=== PATIENT | male | born 1940 | race African-American/Black ===

== ENCOUNTER 2016-05-27 13:10 | Inpatient (IN) ==
--- NOTE | 2016-05-27 13:47 | EKG Report ---
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
[2016-05-27 14:12] LABS: Basophils % 0.2 % (0.0-0.8); Eosinophils # 0.1 10*3/uL (0.0-0.87); Eosinophils % 2.1 % (0.00-10.9); Hematocrit 32.8 VOL% (42.0-52.0); Hemoglobin 9.8 GM/DL (14.0-18.0); Immature Granulocytes % 0.2 %; Immature Granulocytes Absolute 0.01 #; Lymphocytes % 34.1 % (21.2-54.2); Mean Corpuscular HGB Conc 29.9 GM/DL (32-36); Mean Corpuscular Hemoglobin 26 PG (27-34); Mean Corpuscular Volume 87.7 FL (87-102); Monocytes # 0.4 10*3/uL (0.11-0.8); Monocytes % 7.5 % (1.7-12.7); Neutrophils # 3.3 10*3/uL (1.4-7.4); Neutrophils % 55.9 % (38.7-73.9); Platelet Count 250 T/CUMM (130-400); Red Blood Count 3.74 MC/CUMM (3.8-5.5); Red Cell Distribution Width 15.9 % (9.3-17.3); White Blood Count 5.8 T/CUMM (4-12)
--- NOTE | 2016-05-27 14:24 | XRay Report ---
Exam: XR chest 1V portable Date: 05/27/2016 1:44 PM Indication: Shortness of breath Comparison: 02/11/2016 Technical: AP Findings: Low volume effusions are present with underlying atelectatic change and minimal shunt vascularity with cardiac enlargement. External cardiac leads and oxygen tubing are present. No pneumothorax present. Mediastinum is intact. No pneumothorax Impression: 1. Bibasilar atelectatic changes infiltrates and effusions 2. Mild cardiac decompensation suspected, CHF PROCEDURE INTERPRETED AT [facility] DEPARTMENT OF RADIOLOGY Final Report Signed by: Dr. Kevin Rick
[2016-05-27] MEDS ORDERED: FUROSEMIDE 40 MG/4 ML VIAL ONE (14:28)
[2016-05-27 14:33] LABS: Alanine Aminotransferase 13 U/L (16-61); Albumin 2.3 G/DL (3.4-5.0); Alkaline Phosphatase 111 U/L (45-117); Aspartate Amino Transferase 16 U/L (0-37); Bilirubin,Total < 0.39 MG/DL (0.2-1.0); Blood Urea Nitrogen 20 MG/DL (7-18); Glucose 159 MG/DL (74-106); Magnesium 1.9 MG/DL (1.8-2.4); Osmolality,Calculated 299.3 MOS/KG (273-304); Potassium 3.9 MMOL/L (3.5-5.1); Sodium 148 MMOL/L (136-145); Total Protein 7.4 G/DL (6.4-8.3)
[2016-05-27] MEDS ORDERED: FUROSEMIDE 40 MG/4 ML VIAL IV STA (14:48)
--- NOTE | 2016-05-27 15:05 | Emergency Department Note ---
Socorro Castellanos Brittany, am scribing for, and in the presence of, Sanjeev Remy MD 13:47. Jonel Castellanos Phillip K, MD, personally performed the services described in this documentation, ascribed by Mara Quintanilla in my presence, and it is both accurate and complete [id number] . Arrival - Arrival Chief Complaint: Shortness of Breath Stated Complaint: FLUID ON CHEST ED Nursing Triage Note: SOB FOR PAST TWO DAYS, SEEN BY DR MIRANDA IN CLINIC THIS AM, PER PT CHEST XRAY HAD FLUID BUILD UP. DENIES CHEST PAIN Mode of Arrival: Ambulatory Limitations: No Limitations Source: Patient Time Seen by Provider: 05/27/16 13:28 - History of Present Illness HPI Narrative: This is a 76 y/o black male, who presents to the ED with c/o dyspnea which started yesterday. He states he was being seen at Dr. Miranda's clinic this morning. Per pt, his chest X-ray showed fluid build up. He denies any CP, fever , vomiting or diarrhea. He reports the SOB is worse with exertion. He states he wears O2 PRN. Pt has no other complaints/pain in the ED at this time. Pt has a PMHx of CAD, CHF, OK, migraines, IDDM, cardiovascular problems, pneumonia, GERD , musculoskeletal problems, and back/neck problems. Pt has had a cardiac cath, neurological surgery, appendectomy, hernia repair, and abd surgery. Pt has a family medical Hx of diabetes. Pt denies a social Hx. Onset (ago): day(s) (Started yesterday) Consistency: constant Severity: moderate Allergies/Adverse Reactions: Allergies Allergy/AdvReac Type Severity Reaction Status Date / Time Sulfa (Sulfonamide Allergy HIVES Verified 05/27/16 13:11 Antibiotics) Home Medications: Home Medications Medication Instructions Recorded Confirmed Type Clopidogrel Bisulfate [Clopidogrel] 75 mg PO DAILY 02/07/16 02/12/16 History Pantoprazole Tab [Protonix Tab] 40 mg PO DAILY 02/07/16 02/12/16 History Ranolazine [Ranexa] 500 mg PO DAILY 02/07/16 02/12/16 History Acetaminophen Tab [Tylenol Tab] 325 mg PO Q4H PRN #0 tablet 02/12/16 02/12/16 Rx Albuterol/Ipratropium Neb [Duoneb] 3 ml RESP TX RT Q4H nebulization 02/12/16 Rx solution Aspirin EC Tab 81 mg PO DAILY tablet 02/12/16 02/12/16 Rx Atorvastatin [Lipitor] 40 mg PO DAILY #0 02/12/16 02/12/16 Rx Carvedilol [Coreg] 12.5 mg PO BID tablet 02/12/16 05/27/16 Rx Dextrose 50% [D50] 25 gm IV PRN PRN #0 vial 02/12/16 02/12/16 Rx Furosemide Tab [Lasix Tab] 80 mg PO BID #0 02/12/16 05/27/16 Rx HYDROcodone/ACETAMIN 10-325 [[place] 1 tablet PO Q6H PRN #30 02/12/16 05/27/16 Rx 10-325] Losartan [Cozaar] 25 mg PO DAILY tablet 02/12/16 05/27/16 Rx Potassium Chloride Cap/Tab [K Dur] 20 meq PO DAILY tablet 02/12/16 05/27/16 Rx Skin Healing Oint (Aquaphor) 1 applic TOP PRN PRN #0 ointment 02/12/16 02/12/16 Rx [Aquaphor] Spironolactone [Aldactone] 25 mg PO BID tablet 02/12/16 02/12/16 Rx Review of System - Review of System 12 point system: reviewed and no additional remarkable complaints except as stated - Review of System Constitutional: Absent: fever Cardiovascular: Present: dyspnea on exertion. Absent: chest pain Gastrointestinal: Absent: vomiting, diarrhea Medical,Surgical,& Family Hx - Medical History Cardio: History of: CHF, CAD, Hypertension, OK, Cardiovascular Problems Psychological: No history of: Anxiety Disorders, Behavior Problems, Bipolar Disorder Neurology: History of: Migraine No history of: Brain Aneurysm, Cerebral Hemorrhage, Cerebrovascular Accident , Cerebral Palsy, Dementia Endocrine: History of: Diabetes Mellitus (IDDM) No history of: Thyroid Disorder, Endocrine Problems Respiratory: History of: Pneumonia, Respiratory Problems (wears o2 at night) No history of: Obstructive Sleep Apnea, Pulmonary Embolism Renal: No history of: Renal (Kidney) Cancer, Dialysis, Renal Failure, Renal Problems Genitourinary: No history of: Bladder Problem, Kidney Stones, Prostate Problems, Recurring Urinary Tract Infections, Genitourinary Cancer, Problems Gastrointestinal: History of: GERD, Hemorrhoids Musculoskeletal: History of: Amputation (Right toes), Back/Neck Problems, Musculoskeletal Problems (weak) Hematology: History of: Anemia No history of: Blood Transfusion Reaction - Surgical History Cardiac Surgeries: Sugical HX of: Cardiac Catheterization Thoracic Surgeries: Patient denies;: Kidney (Renal Surgery), Lithotripsy, Nephrectomy, Organ Transplant, Lobectomy Neurologic Surgeries: Surgical HX of: Neurologic Surgery Patient denies: Brain Aneurysm, Cerebral Hemorrhage HEENT Surgeries: Patient denies: Eye Surgery, Thyroid Surgery, Tonsilectomy & Adenoidectomy Abdominal Surgeries: Surgical HX of: Abdominal Surgery, Appendectomy, Hernia Repair Patient denies: Colonoscopy, Gastric Bypass Surgery, EGD Reproductive Surgeries: Patient denies;: Cystoscopy, Genitourinary Surgery, Prostate Surgery - Family History Family History: Reports;: Family Diabetes (mom) - Social History Smoking Status: Former smoker Exam Vital Signs: Vital Signs Temperature 97.2 F L 05/27/16 14:19 Pulse Rate 89 05/27/16 15:00 Respiratory Rate 15 05/27/16 15:00 Blood Pressure 143/72 05/27/16 15:00 O2 Sat by Pulse Oximetry 96 05/27/16 15:00 - General General appearance: alert, in no apparent distress - Head Head exam: Present: atraumatic, normocephalic, normal inspection - Eye Eye exam: Present: other (Pale conjunctiva) - ENT ENT exam: Present: normal exam, normal oropharynx, mucous membranes moist - Neck Neck exam: Present: normal inspection, full ROM, trachea midline. Absent: tenderness, meningismus - Chest Chest inspection: Present: normal inspection, symmetric chest wall rise. Absent : tenderness, rash, abscess - Respiratory Respiratory exam: Present: normal lung sounds bilaterally. Absent: rales, respiratory distress, rhonchi, stridor, wheezes - Cardiovascular Cardiovascular exam: Present: regular rate, normal rhythm, normal heart sounds. Absent: tachycardia, murmur, rubs, gallop, clicks - Abdominal Exam Abdominal exam: Present: soft, normal bowel sounds. Absent: distention, tenderness, guarding, rebound, rigidity - Extremities Exam Extremities exam: Present: normal capillary refill, other (2+ Pitting Edema). Absent: tenderness, pedal edema, joint swelling, calf tenderness - Back Exam Back exam: Present: normal inspection, full ROM. Absent: tenderness, muscle spasm, rashes - Neurological Exam Neurological exam: Present: alert, oriented X3, CN II-XII intact. Absent: motor sensory deficit - Psychiatric Psychiatric exam: Present: normal affect, normal mood. Absent: agitated, anxious - Skin Skin exam: Present: warm, dry, intact, normal color. Absent: rash, cyanosis, diaphoresis, erythema, pallor, mottled Results - Labs CBC & BMP: 05/27/16 13:53 05/27/16 13:53 Lab Results: I have reviewed the patients labs Labs: Laboratory Tests 05/27/16 13:53 RBC 3.74 L Hgb 9.8 L Hct 32.8 L MCH 26 L MCHC 29.9 L Laboratory Tests 05/27/16 05/27/16 05/27/16 13:53 13:53 13:53 RBC 3.74 L Hgb 9.8 L Hct 32.8 L MCH 26 L MCHC 29.9 L Sodium 148 H Anion Gap 15.9 H BUN 20 H Glucose 159 H Calcium 8.0 L ALT 13 L B-Natriuretic Peptide 1677 H Albumin 2.3 L Globulin 5.1 H Albumin/Globulin Ratio 0.4 L - EKG EKG results: interpreted by ERMD, sinus rhythm (unchanged from previous EKGs.) - Diagnostic Findings Procedure: Chest x-ray: report reviewed by me (atelectasis, mild congestive heart failure.) Disposition Clinical Impression: Congestive heart failure, Pleural effusion, left Case discussed with: patient Disposition: Still a Patient Condition: Guarded Additional Instructions: Admitted to the hospitalist.
--- NOTE | 2016-05-27 17:50 | Hospitalist History & Physical ---
<Ana Khan - Last Filed: 05/27/16 17:41> Assessment and Plan (1) Status post transmetatarsal amputation of right foot Problem details: Slow healing Partial right foot amputee Status: Chronic Assessment and plan: Wound consult for slow healing Partial right foot amputee Current Visit: No (2) Insulin-requiring or dependent type II diabetes mellitus Status: Chronic Assessment and plan: Sliding scale insulin AC and HS with bedside glucose AC and HS. Consistent carb diet. Continue home medications Current Visit: No (3) Hypertension Status: Acute Assessment and plan: Continue home medications Current Visit: No (4) Congestive heart failure Status: Acute Assessment and plan: electrification adviser, \\lasix IVP continue home medications. Current Visit: No Qualifiers: Congestive heart failure type: systolic History of Present Illness History of present illness: Mr. Marcial is a 76 year old male with history of HTN, DM, and CHF. States he went to his PCP this morning for lab work and was sent to ER from there. States he has a slight increased in SOB. Denies nausea or vomiting. Has had no chest pain. He is pleasant but states he is "hungry". Has a partial right foot amputee that he states has not been healing well. He has had no fever , cough. Home Medications Medication Instructions Recorded Confirmed Type Clopidogrel Bisulfate [Clopidogrel] 75 mg PO DAILY 02/07/16 02/12/16 History Pantoprazole Tab [Protonix Tab] 40 mg PO DAILY 02/07/16 02/12/16 History Ranolazine [Ranexa] 500 mg PO DAILY 02/07/16 02/12/16 History Acetaminophen Tab [Tylenol Tab] 325 mg PO Q4H PRN #0 tablet 02/12/16 02/12/16 Rx Albuterol/Ipratropium Neb [Duoneb] 3 ml RESP TX RT Q4H nebulization 02/12/16 Rx solution Aspirin EC Tab 81 mg PO DAILY tablet 02/12/16 02/12/16 Rx Atorvastatin [Lipitor] 40 mg PO DAILY #0 02/12/16 02/12/16 Rx Carvedilol [Coreg] 12.5 mg PO BID tablet 02/12/16 05/27/16 Rx Dextrose 50% [D50] 25 gm IV PRN PRN #0 vial 02/12/16 02/12/16 Rx Furosemide Tab [Lasix Tab] 80 mg PO BID #0 02/12/16 05/27/16 Rx HYDROcodone/ACETAMIN 10-325 [[place] 1 tablet PO Q6H PRN #30 02/12/16 05/27/16 Rx 10-325] Losartan [Cozaar] 25 mg PO DAILY tablet 02/12/16 05/27/16 Rx Potassium Chloride Cap/Tab [K Dur] 20 meq PO DAILY tablet 02/12/16 05/27/16 Rx Skin Healing Oint (Aquaphor) 1 applic TOP PRN PRN #0 ointment 02/12/16 02/12/16 Rx [Aquaphor] Spironolactone [Aldactone] 25 mg PO BID tablet 02/12/16 02/12/16 Rx Allergies Allergy/AdvReac Type Severity Reaction Status Date / Time Sulfa (Sulfonamide Allergy HIVES Verified 05/27/16 13:11 Antibiotics) Medical,Surgical,& Family Hx - Medical History Cardio: History of: CHF, CAD, Hypertension, [place], Cardiovascular Problems Psychological: No history of: Anxiety Disorders, Behavior Problems, Bipolar Disorder Neurology: History of: Migraine No history of: Brain Aneurysm, Cerebral Hemorrhage, Cerebrovascular Accident , Cerebral Palsy, Dementia Endocrine: History of: Diabetes Mellitus (IDDM) No history of: Thyroid Disorder, Endocrine Problems Respiratory: History of: Pneumonia, Respiratory Problems (wears o2 at night) No history of: Obstructive Sleep Apnea, Pulmonary Embolism Renal: No history of: Renal (Kidney) Cancer, Dialysis, Renal Failure, Renal Problems Genitourinary: No history of: Bladder Problem, Kidney Stones, Prostate Problems, Recurring Urinary Tract Infections, Genitourinary Cancer, Problems Gastrointestinal: History of: GERD, Hemorrhoids Musculoskeletal: History of: Amputation (Right toes), Back/Neck Problems, Musculoskeletal Problems (weak) Hematology: History of: Anemia No history of: Blood Transfusion Reaction - Surgical History Cardiac Surgeries: Sugical HX of: Cardiac Catheterization Thoracic Surgeries: Patient denies;: Kidney (Renal Surgery), Lithotripsy, Nephrectomy, Organ Transplant, Lobectomy Neurologic Surgeries: Surgical HX of: Neurologic Surgery Patient denies: Brain Aneurysm, Cerebral Hemorrhage HEENT Surgeries: Patient denies: Eye Surgery, Thyroid Surgery, Tonsilectomy & Adenoidectomy Abdominal Surgeries: Surgical HX of: Abdominal Surgery, Appendectomy, Hernia Repair Patient denies: Colonoscopy, Gastric Bypass Surgery, EGD Reproductive Surgeries: Patient denies;: Cystoscopy, Genitourinary Surgery, Prostate Surgery - Family History Family History: Reports;: Family Diabetes (mom) - Social History Smoking Status: Former smoker - Constitutional Constitutional: Absent: fever(s), frequent falls, malaise - EENT Nose, mouth and throat: Absent: nasal congestion, sore throat - Cardiovascular Cardiovascular: Absent: chest pain at rest - Respiratory Respiratory: Present: dyspnea on exertion. Absent: cough, dyspnea, wheezing - Gastrointestinal Gastrointestinal: Absent: abdominal pain, diarrhea, nausea, vomiting - Genitourinary Genitourinary: Absent: urinary frequency - Musculoskeletal Musculoskeletal: Absent: back pain - Neurological Neurological: Absent: dizziness, headache(s) - Hematologic/Lymphatic Hematologic/Lymphatic: Absent: lymphadenopathy Exam - Constitutional Vitals: Period Temp Pulse Resp BP Sys/Zapien Pulse Ox Last 24 Hr 93-97 18-20 146-156/94-97 98-100 General appearance: no no acute distress - Head Head exam: Absent: normocephalic - Eye Eye exam: Absent: EOMI Pupils: Absent: FUNMILAYO - ENT ENT exam: Absent: normal exam - Respiratory Respiratory exam: Present: rales (Bilateral lower lobes). Absent: accessory muscle use - Cardiovascular Cardiovascular exam: Present: regular rate and rhythm - GI/Abdominal GI/Abdominal exam: Present: normal bowel sounds, soft. Absent: distended, tenderness, rebound - Extremities Exam Extremities exam: Present: other (Has right partial foot amputee on right. ) - Neurological Exam Neurological exam: Present: oriented X3 - Psychiatric Psychiatric exam: Present: normal affect - Skin Skin exam: Present: normal color, dry. Absent: diaphoretic Results - Labs CBC & BMP: 05/27/16 13:53 05/27/16 13:53 - EKG EKG results: sinus rhythm, no acute changes - Diagnostic Findings Procedure: Chest x-ray: report reviewed by me <Denis Hopkins - Last Filed: 05/27/16 18:40> Assessment and Plan (1) Status post transmetatarsal amputation of right foot Problem details: Slow healing Partial right foot amputee Status: Chronic Current Visit: No (2) Peripheral edema Status: Chronic Current Visit: No (3) Hypertension Status: Acute Current Visit: No (4) Congestive heart failure Status: Acute Current Visit: No Qualifiers: Congestive heart failure type: systolic (5) SOB (shortness of breath) Status: Acute Current Visit: No History of Present Illness Chief complaint: Shortness of breath History of present illness: Mr. Marcial is a 76 year old male with a history of congestive heart failure and chronic lower extremity edema with stasis dermatitis. He presented to his primary care physician's office with complaints of worsening shortness of breath and paroxysmal nocturnal dyspnea. He has exertional dyspnea that is chronic. He denies any fever or chills. Denies any productive cough. Reports that his lower extremity edema is slightly worse. He had a good response to 40 of IV Lasix in the emergency department. Medical,Surgical,& Family Hx - Social History Smoking Status: Former smoker Have you smoked in the last 12 months: No Frequency of Alcohol Use: None Type of Drug Use: None Functional capacity: independent ambulation 12 point system: reviewed and no additional remarkable complaints except as stated - Constitutional Constitutional: Present: as per HPI - Respiratory Respiratory: Present: dyspnea, dyspnea on exertion Exam - Constitutional Vitals: Period Temp Pulse Resp BP Sys/[place]ien Pulse Ox Last 24 Hr 91-119 17-20 146-161/91-97 98-100 - Respiratory Respiratory exam: Present: rales - Cardiovascular Cardiovascular exam: Present: regular rate and rhythm - Extremities Exam Extremities exam: Present: edema, other (Has right partial foot amputee on right. chronic lower extremity stasis changes) - Neurological Exam Neurological exam: Present: alert, oriented X3 - Psychiatric Psychiatric exam: Present: normal affect, normal mood - Skin Skin exam: Present: normal color, warm Results - Labs CBC & BMP: 05/27/16 13:53 05/27/16 13:53 Lab Results: I have reviewed the past 24 hour labs
[2016-05-27] MEDS ORDERED: ZALEPLON 5 MG CAPSULE PO PRN (18:11)
[2016-05-27] MEDS ORDERED: SKIN HEALING OINT (AQUAPHOR) 50 GM TUBE TOP PRN (18:33)
[2016-05-27] MEDS: ALBUTEROL/IPRATROPIUM 3 ML NEB RESP TX SCH (19:17)
[2016-05-27] MEDS: CARVEDILOL 12.5 MG TABLET PO SCH (21:22)
[2016-05-27] MEDS: ENOXAPARIN 40 MG/0.4 ML SYRINGE SUBCUT SCH (21:22)
[2016-05-27] MEDS: SPIRONOLACTONE 25 MG TABLET PO SCH (21:22)
[2016-05-28] MEDS: ALBUTEROL/IPRATROPIUM 3 ML NEB RESP TX SCH ×6 (03:25→19:25)
[2016-05-28 06:38] LABS: Basophils % 0.4 % (0.0-0.8); Eosinophils # 0.1 10*3/uL (0.0-0.87); Eosinophils % 1.6 % (0.00-10.9); Hematocrit 27.9 VOL% (42.0-52.0); Hemoglobin 8.4 GM/DL (14.0-18.0); Immature Granulocytes % 0.4 %; Immature Granulocytes Absolute 0.02 #; Lymphocytes # 1.5 10*3/uL (1.4-4.0); Lymphocytes % 30.7 % (21.2-54.2); Mean Corpuscular HGB Conc 30.1 GM/DL (32-36); Mean Corpuscular Hemoglobin 26 PG (27-34); Mean Corpuscular Volume 86.4 FL (87-102); Monocytes # 0.4 10*3/uL (0.11-0.8); Monocytes % 8.4 % (1.7-12.7); Neutrophils # 2.9 10*3/uL (1.4-7.4); Neutrophils % 58.5 % (38.7-73.9); Platelet Count 215 T/CUMM (130-400); Red Blood Count 3.23 MC/CUMM (3.8-5.5); Red Cell Distribution Width 15.5 % (9.3-17.3)
[2016-05-28 07:21] LABS: Calcium 7.8 MG/DL (8.5-10.1); Osmolality,Calculated 296.3 MOS/KG (273-304); Potassium 3.4 MMOL/L (3.5-5.1)
--- NOTE | 2016-05-28 08:26 | Discharge Summary ---
<Ana Khan - Last Filed: 05/28/16 08:14> Hospital Course - Hospital Course Hospital Course: Mr. Marcial is a 76 year old male with history of HTN, DM, and CHF. States he went to his PCP this morning for lab work and was sent to ER from there. States he has a slight increased in SOB. Denies nausea or vomiting. Has had no chest pain. He is pleasant but states he is "hungry". Has a partial right foot amputee that he states has not been healing well. He has had no fever , cough. He was placed in Observation to the Hospitalist service. He is anemic with H/H of 9.8/32.8. BUN/Cr 20/1.20 and normal liver enzymes. Vital signs have been stable with no complaint of shortness of breath. He is to be discharged home today. 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 (2) Insulin-requiring or dependent type II diabetes mellitus Status: Chronic (3) Hypertension Status: Acute (4) Congestive heart failure Status: Acute Specialty Discharge - Follow Up or Referrals Follow up with: Teodora Petersen MD [Physician] - 1 Week (CHF f/u) [facility] [[facility]] - 2 Weeks (2 week hospital f/u) Discharge Plan - Discharge Data [place] [facility] [place] [place] - Discharge Medications New Albuterol/Ipratropium Neb [Duoneb] 3 ml RESP TX RT Q4H Losartan [Cozaar] 25 mg PO DAILY tablet Potassium Chloride Cap/Tab [K Dur] 20 meq PO DAILY tablet Spironolactone [Aldactone] 25 mg PO BID tablet Continue Clopidogrel Bisulfate [Clopidogrel] 75 mg PO DAILY Pantoprazole Tab [Protonix Tab] 40 mg PO DAILY Ranolazine [Ranexa] 500 mg PO DAILY Acetaminophen Tab [Tylenol Tab] 325 mg PO Q4H PRN #0 tablet PRN Reason: fever, headache/body aches Aspirin EC Tab 81 mg PO DAILY tablet Carvedilol [Coreg] 12.5 mg PO BID tablet Skin Healing Oint (Aquaphor) [Aquaphor] 1 applic TOP PRN PRN #0 ointment PRN Reason: Dry Skin Atorvastatin [Lipitor] 40 mg PO DAILY #0 HYDROcodone/ACETAMIN 10-325 [[place] 10-325] 1 tablet PO Q6H PRN #30 PRN Reason: Pain Furosemide Tab [Lasix Tab] 80 mg PO BID #0 Discontinued Losartan [Cozaar] 25 mg PO DAILY tablet Potassium Chloride Cap/Tab [K Dur] 20 meq PO DAILY tablet Spironolactone [Aldactone] 25 mg PO BID tablet - Follow Up or Referral - Forms/Instructions Exam - Constitutional Vitals: Period Temp Pulse Resp BP Sys/Zapien Pulse Ox Last 24 Hr 96.5 F-97.3 F 72-88 16-20 106-129/55-81 90-99 Discharge Results Labs on day of discharge: Labs from last 24 hours 05/29/16 05/29/16 05/29/16 07:46 07:46 07:02 Sodium 141 Potassium 4.1 Chloride 104 Carbon Dioxide 28 Anion Gap 13.1 BUN 22 H Creatinine 1.50 H GFR Calculation 64 BUN/Creatinine Ratio 14.00 Glucose 120 H POC Glucose 139 H Calculated Osmolality 284.3 Calcium 8.1 L Magnesium 1.9 B-Natriuretic Peptide 1480 H 05/28/16 05/28/16 05/28/16 19:19 16:15 11:37 Sodium Potassium Chloride Carbon Dioxide Anion Gap BUN Creatinine GFR Calculation BUN/Creatinine Ratio Glucose POC Glucose 152 H 124 H 125 H Calculated Osmolality Calcium Magnesium B-Natriuretic Peptide 05/28/16 11:21 Sodium Potassium Chloride Carbon Dioxide Anion Gap BUN Creatinine GFR Calculation BUN/Creatinine Ratio Glucose POC Glucose Calculated Osmolality Calcium Magnesium B-Natriuretic Peptide 2000 H DS: Provider Date of admission: 05/27/16 15:25 Primary care physician: . No PCP Attending physician on admission: Teresa Dukes MD Consults: 05/27/16 18:27 Consult to Wound Care - [place] [CONS] Routine Reason for Wound Care: Wound Care Management 05/27/16 18:41 Consult to Pharmacy [CONS] Routine Reason for Pharmacy Consult: Adjust Meds Renal Funct Discharging clinician: Ana Khan NP Expected date of discharge: 05/28/16 <Teresa Dukes - Last Filed: 05/29/16 11:52> Hospital Course - Hospital Course Hospital Course: Pt is a 76 year old male with a history of hypertension, diabetes mellitus type 2, and systolic congestive heart failure who presented to the hospital with a chief complaint of increasing shortness of breath. He was found to be in decompensated systolic congestive heart failure and was started on IV Lasix. He was also continued on his home medication of ARB, BB and aldactone. Strict I and O and daily weights were monitored. Repeat BNP and CXR initially showed worsening of edema. With continued diuresis, pt's symptoms significantly improved. Patient also was noted to have a partial amputation of the right lower extremity wound of which wound care evaluated and addressed. For peripheral arterial disease he was continued on statin and antiplatelet therapy. For diabetes mellitus, patient was treated with insulin and did well during hospitalization. Electrolytes were replaced as needed. Patient's creatinine increased from 1.2-1.5 at discharge. Losartan, Lasix, Aldactone were held and patient instructed to follow-up with his locator ( Dr. Petersen) early next week. Once he reached the maximum benefit of hospitalization, he was discharged to home with home health for ongoing care. 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 If weight increases or decreases by more than 3 lbs, notify MD (PCP or cards)) Hygiene: no restrictions Weight Bearing at Discharge: other (weight bearingon right foot per ortho recs) Driving: not until seen by doctor (ortho) Contact your physician if you experience:: fever over 101, Difficulty voiding, Redness or swelling, Nausea/Vomiting, Shortness of breath, Bleeding, pain uncontrolled by pain medications Wound / Dressing Care Instructions: per wound care recommendations - Forms/Instructions Additional Discharge Instructions: RFP in 1 week with results to PCP and cardiology Exam - Constitutional General appearance: normal weight, no acute distress - Head Head exam: Present: normal inspection, normocephalic, atraumatic - Eye Eye exam: Present: EOMI. Absent: conjunctival injection, periorbital swelling, scleral icterus Pupils: Present: FUNMILAYO, normal accommodation - ENT ENT exam: Present: normal exam - Neck Neck exam: Present: normal inspection. Absent: lymphadenopathy, tenderness, thyromegaly - Respiratory Respiratory exam: Present: clear to auscultation bilaterally, decreased breath sounds, other. Absent: accessory muscle use, rales, rhonchi, stridor, wheezes - Cardiovascular Cardiovascular exam: Present: regular rate and rhythm. Absent: systolic murmur - GI/Abdominal GI/Abdominal exam: Present: normal bowel sounds, soft. Absent: mass, organomegaly, tenderness - Extremities Exam Extremities exam: Present: normal inspection, normal capillary refill - Neurological Exam Neurological exam: Present: alert, oriented X3 - Skin Skin exam: Present: normal color, warm, dry DS: Provider Expected date of discharge: 05/29/16
[2016-05-28] MEDS ORDERED: PANTOPRAZOLE 40 MG TABLET PO SCH (09:00)
[2016-05-28] MEDS: SPIRONOLACTONE 25 MG TABLET PO SCH ×2 (09:03→20:41)
[2016-05-28] MEDS: ASPIRIN EC 81 MG TABLET PO SCH (09:03)
[2016-05-28] MEDS: RANOLAZINE 500 MG TABLET PO SCH (09:03)
[2016-05-28] MEDS: LOSARTAN 25 MG TABLET PO SCH (09:03)
[2016-05-28] MEDS: FUROSEMIDE 40 MG/4 ML VIAL IV SCH ×2 (09:04→17:14)
[2016-05-28] MEDS: CARVEDILOL 12.5 MG TABLET PO SCH ×2 (09:04→20:41)
[2016-05-28] MEDS: CLOPIDOGREL 75 MG TABLET PO SCH (09:04)
[2016-05-28] MEDS: ATORVASTATIN 40 MG TABLET PO SCH (09:04)
[2016-05-28] MEDS: POTASSIUM CHLORIDE 20 MEQ TABLET PO SCH (09:04)
[2016-05-28] MEDS: PANTOPRAZOLE 40 MG TABLET PO SCH (09:04)
--- NOTE | 2016-05-28 11:30 | Hospitalist Progress Note ---
Hospitalist: Subjective Interval history: Pt states SOB is better. He denies cp or palpitations. He reports a dry cough and thinks his LE swelling in left leg is better. Tolerating po. Good UOP Exam - Constitutional Vitals: Period Temp Pulse Resp BP Sys/Zapien Pulse Ox Last 24 Hr 96.7 F-97.6 F 77-119 16-20 105-166/54-99 93-100 General appearance: no acute distress - Head Head exam: Present: normal inspection, normocephalic, atraumatic - Eye Eye exam: Present: EOMI. Absent: conjunctival injection, nystagmus, periorbital swelling, scleral icterus Pupils: Present: FUNMILAYO - ENT ENT exam: Present: normal exam - Neck Neck exam: Present: normal inspection. Absent: lymphadenopathy, tenderness, thyromegaly - Respiratory Respiratory exam: Present: other (fine rales in left lung base, clear otherwise. Diminished in the right lower lung field. No wheezes, or retractions. Speaking in full sentences) - Cardiovascular Cardiovascular exam: Present: regular rate and rhythm. Absent: diastolic murmur - GI/Abdominal GI/Abdominal exam: Present: normal bowel sounds, soft. Absent: distended, mass , organomegaly, tenderness - Extremities Exam Extremities exam: Present: normal inspection, calf tenderness, edema (trace edema of LLE. RLE DEBO bandage in place) - Neurological Exam Neurological exam: Present: alert, oriented X3 - Psychiatric Psychiatric exam: Present: normal affect, normal mood - Skin Skin exam: Present: normal color, warm, dry Results - Labs CBC & BMP: 05/28/16 05:57 05/28/16 05:57 Labs: repeat BNP and CXR pending - Impressions Acute on chronic systolic CHF exacerbation- Cont IV Lasix for now. Cont ARB, BB and aldactone. Strict I and O and daily weights. Repeat BNP and CXR pending. PAD s/p partial amputation RLE- cont home meds. Appreciate wound care and note reviewed. Will follow with HH at discharge. DM2 (control unknown)- cont home regimen Hypokalemia- replace lytes D/C pending BNP and CXR results. D/W pt and all questions answered.
[2016-05-28] MEDS ORDERED: POTASSIUM CHLORIDE 20 MEQ TABLET PO ONE (11:31)
--- NOTE | 2016-05-28 14:41 | XRay Report ---
Exam: XR chest 1V portable Date: 05/28/2016 11:26 AM Indication: Shortness of breath Comparison: 05/27/2016 Technical: AP portable Findings: Cardiomegaly present with low volume effusions and shunt vascularity. External cardiac leads are present. No pneumothorax present. Oxygen tubing is present. Mediastinum is intact. No pneumothorax. Impression: 1. Cardiomegaly with component of CHF with worsening findings were compared to the previous exam with increasing effusions and atelectatic change PROCEDURE INTERPRETED AT [facility] DEPARTMENT OF RADIOLOGY Final Report Signed by: Dr. Kevin Rick
[2016-05-28] MEDS: ENOXAPARIN 40 MG/0.4 ML SYRINGE SUBCUT SCH (20:41)
[2016-05-29] MEDS: ALBUTEROL/IPRATROPIUM 3 ML NEB RESP TX SCH ×4 (01:03→11:02)
[2016-05-29 09:00] LABS: Calcium 8.1 MG/DL (8.5-10.1); Magnesium 1.9 MG/DL (1.8-2.4); Osmolality,Calculated 284.3 MOS/KG (273-304); Potassium 4.1 MMOL/L (3.5-5.1)
[2016-05-29] MEDS: RANOLAZINE 500 MG TABLET PO SCH (09:26)
[2016-05-29] MEDS: ASPIRIN EC 81 MG TABLET PO SCH (09:26)
[2016-05-29] MEDS: POTASSIUM CHLORIDE 20 MEQ TABLET PO SCH (09:27)
[2016-05-29] MEDS: FUROSEMIDE 40 MG/4 ML VIAL IV SCH (09:27)
[2016-05-29] MEDS: ATORVASTATIN 40 MG TABLET PO SCH (09:27)
[2016-05-29] MEDS: CLOPIDOGREL 75 MG TABLET PO SCH (09:27)
[2016-05-29] MEDS: LOSARTAN 25 MG TABLET PO SCH (09:27)
[2016-05-29] MEDS: PANTOPRAZOLE 40 MG TABLET PO SCH (09:27)
[2016-05-29] MEDS: SPIRONOLACTONE 25 MG TABLET PO SCH (09:27)
[2016-05-29] MEDS: CARVEDILOL 12.5 MG TABLET PO SCH (09:27)
[2016-05-29 11:42] VITALS: BP 141/92
--- NOTE | 2016-06-02 08:01 | Physician Query Form ---
CLICK EDIT DOCUMENT TO SELECT QUERY ANSWER --> OK --> SIGN Marilyn Pratt RN Clinical Seismology Technical Officer W) [phone] (f) [phone] [email or web address] PROVIDERS: Make your selection(s) from the choices in EACH section by typing an "x" and enter comments in the comment section. Please use your independent medical judgment in providing your response. This request does not imply that any particular answer is desired or expected. CLINICAL INDICATORS: (Providers should not edit this section) Based on documentation of serum sodium level from 148 to 141. Monitored with repeat lab checks. Based on the above, could you clarify the appropriate diagnosis, if significant , that supports the above abnormalities and additional evaluation, monitoring, and/or treatment rendered: ( X) Hypernatremia ( ) Did NOT have Hypernatremia ( ) Other, please specify: ( ) Clinically unable to determine COMMENTS: Use of terms such as suspected, likely, or probable (associated with a specific diagnosis that is being evaluated, monitored, or treated as if it exists) are acceptable and can be restated in the discharge summary if not ruled out. MTDD
--- NOTE | 2016-06-02 08:03 | Physician Query Form ---
CLICK EDIT DOCUMENT TO SELECT QUERY ANSWER --> OK --> SIGN Marilyn Pratt RN Clinical Hr Intern W) [phone] (f) [phone] [email or web address] PROVIDERS: Make your selection(s) from the choices in EACH section by typing an "x" and enter comments in the comment section. Please use your independent medical judgment in providing your response. This request does not imply that any particular answer is desired or expected. CLINICAL INDICATORS: (Providers should not edit this section) Based on documentation of "Acute Chronic kidney disease" Creatinine from 1.20 to 1.50. GFR form 83 to 64. Was given IV Lasix for fluid overload. Monitored with serial lab checks. Clarify which of the following most accurately represents the patient's renal status: (X ) Acute kidney injury (non-traumatic) ( ) Acute renal failure ( ) Acute renal failure with underlying Chronic Kidney Disease (CKD) - please provide stage below ( ) Acute renal failure with pathological renal lesion ( ) Acute renal failure with necrosis ( ) tubular ( ) medullary ( ) cortical ( ) CKD - please provide stage below ( ) End Stage Renal Disease ( ) Acute interstitial nephritis ( ) Hepatorenal syndrome ( ) Other, please specify: ( ) Clinically unable to determine Chronic Kidney Disease Stages Source: National Kidney Disease Foundation ( ) Stage I (eGFR > or = 90) ( ) Stage II (eGFR 60 - 89) ( ) Stage III (eGFR 30 - 59) ( ) Stage IV (eGFR 15 - 29) ( ) Stage V (eGFR < 15 or dialysis) COMMENTS: Use of terms such as suspected, likely, or probable (associated with a specific diagnosis that is being evaluated, monitored, or treated as if it exists) are acceptable and can be restated in the discharge summary if not ruled out. MTDD
== END 2016-05-29 12:15 | disposition home or self-care (01) | DRG 292 ==
LOC: N.ED 13:10 → N.EDINP 13:10 → N.TELES 17:11
PROVIDERS: ADMIT Pediatrics; ATTEND Pediatrics

== ENCOUNTER 2016-07-12 20:46 | Inpatient (IN) ==
[2016-07-12] MEDS ORDERED: ONDANSETRON 4 MG/2 ML VIAL IV STA (21:22)
[2016-07-12] MEDS ORDERED: ASPIRIN 325 MG TABLET PO STA (21:22)
[2016-07-12] MEDS ORDERED: HYDROmorphone 2 MG/1 ML VIAL IV STA (21:22)
[2016-07-12] MEDS ORDERED: NITROGLYCERIN 2% OINT 1 INCH/GM PACK TOP STA (21:22)
[2016-07-12 21:30] LABS: Basophils % 0.2 % (0.0-0.8); Eosinophils % 0.3 % (0.00-10.9); Hematocrit 32.2 VOL% (42.0-52.0); Hemoglobin 9.8 GM/DL (14.0-18.0); Immature Granulocytes % 0.5 %; Immature Granulocytes Absolute 0.03 #; Lymphocytes # 1.4 10*3/uL (1.4-4.0); Lymphocytes % 22.7 % (21.2-54.2); Mean Corpuscular HGB Conc 30.4 GM/DL (32-36); Mean Corpuscular Hemoglobin 26 PG (27-34); Mean Corpuscular Volume 85.2 FL (87-102); Mean Platelet Volume 9.8 FL (9.6-12.0); Monocytes # 0.6 10*3/uL (0.11-0.8); Monocytes % 9.5 % (1.7-12.7); Neutrophils % 66.8 % (38.7-73.9); Platelet Count 235 T/CUMM (130-400); Red Blood Count 3.78 MC/CUMM (3.8-5.5); Red Cell Distribution Width 15.6 % (9.3-17.3)
--- NOTE | 2016-07-12 21:37 | XRay Report ---
Portable chest Date: 07/12/2016 Clinical history: Chest pain Comparison: 07/03/2016 Technique: Portable AP sitting chest Findings: The heart is larger in size with uncoiling of the aorta. Prominent pulmonary vasculature. Decreased parenchymal findings at the lung bases with smaller pleural effusions. Progressive diffuse parenchymal findings in both midlung zones. Degenerative changes and old healed fracture of the distal left clavicle. Impression: Decreased atelectasis/infiltration at the lung bases with smaller pleural effusions. The heart is larger in size with progressive pulmonary edema. PROCEDURE INTERPRETED AT [facility] DEPARTMENT OF RADIOLOGY Final Report Signed by: Dr. Jocelyn Rossi
[2016-07-12 21:40] LABS: Bilirubin,Total 0.4 MG/DL (0.2-1.0); Calcium 7.5 MG/DL (8.5-10.1); Osmolality,Calculated 288.1 MOS/KG (273-304); Potassium 3.4 MMOL/L (3.5-5.1); Total Protein 7.1 G/DL (6.4-8.3)
[2016-07-12] MEDS ORDERED: ONDANSETRON 4 MG/2 ML VIAL ONE (22:01)
[2016-07-12] MEDS ORDERED: ASPIRIN 325 MG TABLET ONE (22:01)
[2016-07-12] MEDS ORDERED: HYDROmorphone 2 MG/1 ML VIAL ONE (22:01)
[2016-07-12] MEDS ORDERED: NITROGLYCERIN 2% OINT 1 INCH/GM PACK TOP ONE (22:02)
[2016-07-12] MEDS ORDERED: FUROSEMIDE 40 MG/4 ML VIAL IV STA (23:18)
[2016-07-13] MEDS ORDERED: FUROSEMIDE 40 MG/4 ML VIAL ONE (00:02)
[2016-07-13] MEDS ORDERED: ONDANSETRON 4 MG/2 ML VIAL IV PRN (01:13)
--- NOTE | 2016-07-13 01:13 | Emergency Department Note ---
ITrista Sierra, am scribing for, and in the presence of, Ese Bhardwaj DO 21:19. IBenton Catherine, DO, personally performed the services described in this documentation, ascribed by Britt Weston in my presence, and it is both accurate and complete . Arrival - Arrival Chief Complaint: Chest Pain ED Nursing Triage Note: PT ARRIVES VIA EMS FROM HOME WITH COMPLAINTS OF SOB/CP THAT STARTED AT 1700. STATES THAT HE HAS A NON PRODUCTIVE COUGH BUT DENIES FEVER. PT STATES THAT HE DOES HURT ON HIS LEFT SIDE. STATES IT IS A TIGHTNESS. DENIES ANY N/V. Mode of Arrival: Stretcher Limitations: No Limitations Source: Patient Time Seen by Provider: 07/12/16 21:02 - History of Present Illness HPI Narrative: Pt is a 76 y/o male that came to the ED via EMS with c/o chest pain that began about 1700 tonight. Pt has associated sxs of SOB and non reproductive cough but denies fever or N/V. Pt describes the pain as "just hurting." Pt reports his pain is still a 7/10 in ED. Pt states he had a [place] with stents placed in December 2015. Pt's station agent is Dr. Petersen. Pt reports he does not live alone. Pt has a PMHx of DM in which he had to have a partial amputation to his right foot. No other complaints/pain in ED. Onset (ago): hour(s) Consistency: constant Severity: moderate Severity scale (1-10): 7 Quality: sharp Allergies/Adverse Reactions: Allergies Allergy/AdvReac Type Severity Reaction Status Date / Time Sulfa (Sulfonamide Allergy HIVES Verified 07/03/16 14:12 Antibiotics) Home Medications: Home Medications Medication Instructions Recorded Confirmed Type Clopidogrel Bisulfate [Clopidogrel] 75 mg PO DAILY 02/07/16 07/12/16 History Pantoprazole Tab [Protonix Tab] 40 mg PO DAILY 02/07/16 07/12/16 History Ranolazine [Ranexa] 500 mg PO DAILY 02/07/16 07/12/16 History Acetaminophen Tab [Tylenol Tab] 325 mg PO Q4H PRN #0 tablet 02/12/16 07/12/16 Rx Aspirin EC Tab 81 mg PO DAILY tablet 02/12/16 07/12/16 Rx Atorvastatin [Lipitor] 40 mg PO DAILY #0 02/12/16 07/12/16 Rx Carvedilol [Coreg] 12.5 mg PO BID tablet 02/12/16 07/12/16 Rx HYDROcodone/ACETAMIN 10-325 [[place] 1 tablet PO Q6H PRN #30 02/12/16 07/12/16 Rx 10-325] Skin Healing Oint (Aquaphor) 1 applic TOP PRN PRN #0 ointment 02/12/16 07/12/16 Rx [Aquaphor] Albuterol/Ipratropium Neb [Duoneb] 3 ml RESP TX RT Q4H 05/29/16 07/12/16 Rx Furosemide Tab [Lasix Tab] 80 mg PO BID #0 05/29/16 07/12/16 Rx Losartan [Cozaar] 25 mg PO DAILY tablet 05/29/16 07/12/16 Rx Potassium Chloride Cap/Tab [K Dur] 20 meq PO DAILY tablet 05/29/16 07/12/16 Rx Spironolactone [Aldactone] 25 mg PO BID tablet 05/29/16 07/12/16 Rx Review of System - Review of System 12 point system: reviewed and no additional remarkable complaints except as stated - Review of System Constitutional: Absent: chills, fever Respiratory: Present: cough (nonreproductive cough), other (SOB) Cardiovascular: Present: chest pain Gastrointestinal: Absent: abdominal pain, nausea, vomiting Musculoskeletal: Absent: arm pain, back pain, leg pain, neck pain Neurological: Absent: headache, numbness, confusion Psychiatric: Absent: anxiety Endocrine: Absent: cold intolerance, fatigue Medical,Surgical,& Family Hx - Medical History Cardio: History of: CHF, CAD, Hypertension, [place], Cardiovascular Problems Psychological: No history of: Anxiety Disorders, Behavior Problems, Bipolar Disorder Neurology: History of: Migraine No history of: Brain Aneurysm, Cerebral Hemorrhage, Cerebrovascular Accident , Cerebral Palsy, Dementia Endocrine: History of: Diabetes Mellitus (IDDM) No history of: Thyroid Disorder, Endocrine Problems Respiratory: History of: Pneumonia, Respiratory Problems (wears o2 at night) No history of: Obstructive Sleep Apnea, Pulmonary Embolism Renal: No history of: Renal (Kidney) Cancer, Dialysis, Renal Failure, Renal Problems Genitourinary: No history of: Bladder Problem, Kidney Stones, Prostate Problems, Recurring Urinary Tract Infections, Genitourinary Cancer, Problems Gastrointestinal: History of: GERD, Hemorrhoids Musculoskeletal: History of: Amputation (Right toes), Back/Neck Problems, Musculoskeletal Problems (weak) Hematology: History of: Anemia No history of: Blood Transfusion Reaction - Surgical History Cardiac Surgeries: Sugical HX of: Cardiac Catheterization Thoracic Surgeries: Patient denies;: Kidney (Renal Surgery), Lithotripsy, Nephrectomy, Organ Transplant, Lobectomy Neurologic Surgeries: Surgical HX of: Neurologic Surgery Patient denies: Brain Aneurysm, Cerebral Hemorrhage HEENT Surgeries: Patient denies: Eye Surgery, Thyroid Surgery, Tonsilectomy & Adenoidectomy Abdominal Surgeries: Surgical HX of: Abdominal Surgery, Appendectomy, Hernia Repair Patient denies: Colonoscopy, Gastric Bypass Surgery, EGD Reproductive Surgeries: Patient denies;: Cystoscopy, Genitourinary Surgery, Prostate Surgery - Family History Family History: Reports;: Family Diabetes (mom) - Social History Smoking Status: Smoker, status unknown Frequency of Alcohol Use: None Type of Drug Use: None Marital Status: Single Lives With:: Alone Functional capacity: independent ambulation Exam Vital Signs: Vital Signs Temperature 98.6 F 07/12/16 20:46 Pulse Rate 101 H 07/12/16 20:46 Respiratory Rate 18 07/12/16 21:00 Blood Pressure 150/95 07/12/16 20:46 O2 Sat by Pulse Oximetry 88 L 07/12/16 20:46 - General General appearance: alert, in no apparent distress - Head Head exam: Present: atraumatic, normocephalic - Eye Eye exam: Present: PERRL, EOMI - ENT ENT exam: Present: mucous membranes moist. Absent: mucous membranes dry - Neck Neck exam: Present: full ROM. Absent: tenderness - Chest Chest inspection: Present: symmetric chest wall rise. Absent: tenderness - Respiratory Respiratory exam: Present: normal lung sounds bilaterally, accessory muscle use. Absent: respiratory distress - Cardiovascular Cardiovascular exam: Present: regular rate, normal rhythm, normal heart sounds - Abdominal Exam Abdominal exam: Present: soft, normal bowel sounds. Absent: tenderness - Extremities Exam Extremities exam: Present: full ROM, pedal edema, other (pt has boot on right foot due to partial amputation). Absent: tenderness - Back Exam Back exam: Present: full ROM. Absent: tenderness - Neurological Exam Neurological exam: Present: alert, oriented X3, CN II-XII intact. Absent: motor sensory deficit - Psychiatric Psychiatric exam: Present: normal affect, normal mood - Skin Skin exam: Present: warm, dry Course Course Narrative: This is a 76 yr old male is coming into the ER tonight following an episode of substernal chest pressure and shortness of breath that started this evening. He does state he has a long cardiac history sees Dr. Petersen he is had stents and also has congestive failure. He stated that he couldn't get comfortable tonight he started with the pain and then he began feeling short of breath. He has not had a cough he has not had any fever or chills. He's had no nausea or vomiting. He does report he got scared tonight because he couldn't get any relief at home. He was given a nitroglycerin in route by EMS but that has not helped his symptoms. No other history is reported the patient has had a partial dictation of his right foot due to his diabetes. Physical exam the patient awake and alert his vital signs are stable he is afebrile saturation is good HeenT exam is normal neck is supple heart is a regular rate and rhythm his lungs reveal breath sounds to be diminished at the bases he does have some scattered rales. His abdomen is rounded soft nontender with good bowel sounds his extremities are intact he has a partial amputation of the right foot. He does have about a 1+ pitting edema noted to his left lower leg. Treatment in the ER included a chest x-ray which shows him to have increasing vascular congestion. His EKG shows a normal sinus rhythm he does have nonspecific ST to T changes. His cardiac enzymes were normal. His probing peptide was elevated over 1800. His white blood cell count is normal. The patient has had relief in here following Nitropaste and some Lasix. He has diuresed quite a bit. I have spoken to Dr. Rodriguez-sade who is air intercept controller for cardiology services we will be admitting the patient to Dr. Petersen at this time. - Consultations Consultation #1: Dr. Seo has accepted the admisison for cardiology - Dr. Petersen Time: 01:12 Results - Labs CBC & BMP: 07/12/16 21:09 07/12/16 21:09 Lab Results: I have reviewed the patients labs Labs: Laboratory Tests 07/12/16 21:09 RBC 3.78 L Hgb 9.8 L Hct 32.2 L MCV 85.2 L MCH 26 L MCHC 30.4 L Laboratory Tests 07/12/16 21:09 Potassium 3.4 L BUN 24 H Creatinine 1.50 H Glucose 133 H Calcium 7.5 L Alkaline Phosphatase 175 H Albumin 2.0 L Globulin 5.1 H Albumin/Globulin Ratio 0.3 L Laboratory Tests 07/12/16 21:09 B-Natriuretic Peptide 1837 H - EKG EKG results: interpreted by ERMD - Impressions non specific st t changes - Diagnostic Findings Procedure: Chest x-ray: report reviewed by me (Decreased atelectasis/ infiltration at the lung bases with smaller pleural effusions. The heart is larger in size with progressive pulmonary edema.) Disposition Clinical Impression: Acute exacerbation of CHF (congestive heart failure), Chest pain Case discussed with: patient Disposition: Still a Patient Condition: Stable Time of Disposition: 01:12
[2016-07-13] MEDS ORDERED: ACETAMINOPHEN 325 MG TABLET PO PRN (03:34)
[2016-07-13] MEDS ORDERED: ASPIRIN 325 MG TABLET PO PRN (03:37)
[2016-07-13] MEDS ORDERED: SKIN HEALING OINT (AQUAPHOR) 50 GM TUBE TOP PRN (03:38)
--- NOTE | 2016-07-13 07:34 | EKG Report ---
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
[2016-07-13] MEDS: ALBUTEROL/IPRATROPIUM 3 ML NEB RESP TX SCH ×3 (07:59→19:34)
--- NOTE | 2016-07-13 08:33 | Cardiology History & Physical ---
Assessment and Plan (1) Hypertension Status: Acute Assessment and plan: 1. 76-year-old diabetic, with treated dyslipidemia, mild microcytic anemia, known CAD status post reported HI with LAD stent at [facility] approximately early January 2016 (no records), who presented later that month to [place] with heart failure with EF 35% and severe anteroapical wall motion abnormality severe TR and moderate MR, now presenting with hours of persistent chest discomfort shortness of breath and initial negative troponin and EKG suggesting old anterior HI. 2. Exam also suggests left to right heart failure with modestly elevated neck veins, and crackles in the right base, as well as BNP 1800 confirming systolic acute on chronic heart failure 3. Probable PAD status post right midfoot amputation, followed in the wound clinic but foul odor noted today raising the question of infection? Surgery is following. We'll make sure her wound care nurse is following. 4. Recommend left heart catheterization from right groin access given his persistent chest pain, and recurrent heart failure with mildly reduced LV systolic function. He has not been compliant with follow-up as he is never seen a stock handler floorperson outside of the hospital. I discussed with him the great importance of this. He actually lives fairly close to the hospital and reports that his sister can take him to appointments. He lives in a house with several other people that he "knows". Current Visit: No (2) Anemia Status: Acute Current Visit: No (3) PVD (peripheral vascular disease) Status: Chronic Current Visit: No (4) Congestive heart failure Status: Acute Current Visit: No History of Present Illness Chief complaint: CP History of present illness: Mr. Marcial is a 76 year old male who apparently had heart attack at [facility] around early January 2016. He reports he was sent home he still had some leg swelling and shortness of breath, he reports "Dr. Lopez only to prop of my legs". He presented with heart failure to [facility] later January 2016. At that time he's there have ejection fraction 35% with anterior wall motion abnormality 3+ TR and moderate MR. It appears he has not followed up with cardiology since that time though recently saw Dr. Petersen in the hospital. We have no clinic records of him seeing anyone at see us. He presents with constant chest pain since [id number] 12. His EKG appeared to show old anterior HI. His initial troponin was negative at 2109 last PM. He reports that his chest discomfort has persisted in his left chest though it is improved this morning. Initial report increased shortness of breath away does not seem to have any tachypnea or respiratory distress while talking to him. He is at best a fair historian. He reports he has been going to the wound center regularly and his foot is bandaged and though it smells badly. He has some orthopnea. Home Medications Medication Instructions Recorded Confirmed Type Clopidogrel Bisulfate [Clopidogrel] 75 mg PO DAILY 02/07/16 07/13/16 History Pantoprazole Tab [Protonix Tab] 40 mg PO DAILY 02/07/16 07/13/16 History Ranolazine [Ranexa] 500 mg PO DAILY 02/07/16 07/13/16 History Acetaminophen Tab [Tylenol Tab] 325 mg PO Q4H PRN #0 tablet 02/12/16 07/13/16 Rx Aspirin EC Tab 81 mg PO DAILY tablet 02/12/16 07/13/16 Rx Atorvastatin [Lipitor] 40 mg PO DAILY #0 02/12/16 07/13/16 Rx Carvedilol [Coreg] 12.5 mg PO BID tablet 02/12/16 07/13/16 Rx HYDROcodone/ACETAMIN 10-325 [[place] 1 tablet PO Q6H PRN #30 02/12/16 07/13/16 Rx 10-325] Skin Healing Oint (Aquaphor) 1 applic TOP PRN PRN #0 ointment 02/12/16 07/13/16 Rx [Aquaphor] Albuterol/Ipratropium Neb [Duoneb] 3 ml RESP TX RT Q4H 05/29/16 07/13/16 Rx Furosemide Tab [Lasix Tab] 80 mg PO BID #0 05/29/16 07/13/16 Rx Losartan [Cozaar] 25 mg PO DAILY tablet 05/29/16 07/13/16 Rx Potassium Chloride Cap/Tab [K Dur] 20 meq PO DAILY tablet 05/29/16 07/13/16 Rx Spironolactone [Aldactone] 25 mg PO BID tablet 05/29/16 07/13/16 Rx Allergies Allergy/AdvReac Type Severity Reaction Status Date / Time Sulfa (Sulfonamide Allergy HIVES Verified 07/03/16 14:12 Antibiotics) Medical,Surgical,& Family Hx - Medical History Cardio: History of: CHF, CAD, Hypertension, HI, Cardiovascular Problems Psychological: No history of: Anxiety Disorders, Behavior Problems, Bipolar Disorder Neurology: History of: Migraine No history of: Brain Aneurysm, Cerebral Hemorrhage, Cerebrovascular Accident , Cerebral Palsy, Dementia Endocrine: History of: Diabetes Mellitus (IDDM) No history of: Thyroid Disorder, Endocrine Problems Respiratory: History of: Pneumonia, Respiratory Problems (wears o2 at night) No history of: Obstructive Sleep Apnea, Pulmonary Embolism Renal: No history of: Renal (Kidney) Cancer, Dialysis, Renal Failure, Renal Problems Genitourinary: No history of: Bladder Problem, Kidney Stones, Prostate Problems, Recurring Urinary Tract Infections, Genitourinary Cancer, Problems Gastrointestinal: History of: GERD, Hemorrhoids Musculoskeletal: History of: Amputation (Right toes), Back/Neck Problems, Musculoskeletal Problems (weak) Hematology: History of: Anemia No history of: Blood Transfusion Reaction - Surgical History Cardiac Surgeries: Sugical HX of: Cardiac Catheterization Thoracic Surgeries: Patient denies;: Kidney (Renal Surgery), Lithotripsy, Nephrectomy, Organ Transplant, Lobectomy Neurologic Surgeries: Surgical HX of: Neurologic Surgery Patient denies: Brain Aneurysm, Cerebral Hemorrhage HEENT Surgeries: Patient denies: Eye Surgery, Thyroid Surgery, Tonsilectomy & Adenoidectomy Abdominal Surgeries: Surgical HX of: Abdominal Surgery, Appendectomy, Hernia Repair Patient denies: Colonoscopy, Gastric Bypass Surgery, EGD Reproductive Surgeries: Patient denies;: Cystoscopy, Genitourinary Surgery, Prostate Surgery - Family History Family History: Reports;: Family Diabetes (mom) - Social History Smoking Status: Smoker, status unknown Frequency of Alcohol Use: None Type of Drug Use: None Cardiology Physical Exam - Constitutional Vitals: Vital Signs Temp Pulse Resp BP Pulse Ox 98.6 F 77 16 102/64 99 07/13/16 04:00 07/13/16 07:59 07/13/16 07:59 07/13/16 04:00 07/13/16 07:59 Intake and Output 07/12/16 07/13/16 07/13/16 23:59 07:59 15:59 Output Total 620 / 620 Balance -620 / -620 Output: Urine 620 / 620 Other: Voiding Method Urinal Weight 86.455 kg Patient Weight 07/13/16 23:59 Weight 86.455 kg General appearance: normal weight, no acute distress - Head Head exam: Present: normal inspection, normocephalic, atraumatic - Respiratory Respiratory exam: Present: rales (few rales in the right base). Absent: stridor , wheezes - Cardiovascular Cardiovascular exam: Present: regular rate and rhythm. Absent: diastolic murmur , rubs, systolic murmur - GI/Abdominal GI/Abdominal exam: Present: soft. Absent: tenderness - Extremities Exam Extremities exam: Present: edema (trace to 1+ right lower extremity edema with hyperpigmentation, bandaged mid foot amputation, with foul smell.) - Neurological Exam Neurological exam: Present: alert, oriented X3 Result/EKG - Labs CBC & BMP: 07/12/16 21:09 07/12/16 21:09 Labs: Laboratory Results - last 24 hr 07/13/16 06:40 POC Glucose 142 H
[2016-07-13 08:45] LABS: Basophils % 0.2 % (0.0-0.8); Eosinophils % 0.6 % (0.00-10.9); Hematocrit 30.9 VOL% (42.0-52.0); Hemoglobin 9.3 GM/DL (14.0-18.0); Immature Granulocytes % 0.3 %; Immature Granulocytes Absolute 0.02 #; Lymphocytes # 2.5 10*3/uL (1.4-4.0); Lymphocytes % 40.1 % (21.2-54.2); Mean Corpuscular HGB Conc 30.1 GM/DL (32-36); Mean Corpuscular Hemoglobin 26 PG (27-34); Mean Corpuscular Volume 86.3 FL (87-102); Mean Platelet Volume 9.7 FL (9.6-12.0); Monocytes # 0.6 10*3/uL (0.11-0.8); Monocytes % 9.3 % (1.7-12.7); Neutrophils # 3.1 10*3/uL (1.4-7.4); Neutrophils % 49.5 % (38.7-73.9); Platelet Count 231 T/CUMM (130-400); Red Blood Count 3.58 MC/CUMM (3.8-5.5); Red Cell Distribution Width 15.4 % (9.3-17.3); White Blood Count 6.2 T/CUMM (4-12)
[2016-07-13] MEDS: CARVEDILOL 12.5 MG TABLET PO SCH ×2 (08:47→21:20)
[2016-07-13] MEDS ORDERED: POTASSIUM CHLORIDE RIDER 10 MEQ in PREMIX 1 EACH IV PRN (08:49)
[2016-07-13] MEDS ORDERED: MAGNESIUM SULF RIDER 2 GM in PREMIX 1 EACH IV PRN (08:49)
[2016-07-13] MEDS ORDERED: DIAZEPAM 5 MG TABLET PO ONE (08:49)
[2016-07-13] MEDS ORDERED: diphenhydrAMINE CAP 25 MG CAPSULE PO ONE (08:49)
[2016-07-13] MEDS: SODIUM CHLORIDE 0.45% 1,000 ML IV SCH ×2 (09:03→23:22)
[2016-07-13 09:28] LABS: Troponin I Only 0.029 NG/ML (0.00-0.045)
[2016-07-13] MEDS ORDERED: LIDOCAINE 1% 20 ML VIAL ONE (09:28)
[2016-07-13] MEDS ORDERED: MIDAZOLAM 2 MG/2 ML VIAL ONE (09:40)
[2016-07-13] MEDS ORDERED: HYDROmorphone 2 MG/1 ML VIAL ONE (09:40)
--- NOTE | 2016-07-13 10:26 | Cardiac Catheterization ---
Date of Procedure:: 07/13/16 Post-op diagnosis: same Procedure: Procedures performed: 1. Left heart catheterization 2. Coronary angiography 3. Left ventriculography 4. Right femoral arteriotomy closure with Angio-Seal device. Brief clinical summary: Mr. Marcial's a 76-year-old status post LAD stenting at [facility] approximately January 2016 with rehospitalization for heart failure here within a month after intervention, now back in with atypical chest pain or heart failure. Description of procedure: After obtaining informed consent, the right groin was prepped and draped in the usual sterile fashion. Next a short 6 [place] sheath was placed in the right femoral artery using a modified Seldinger technique, after the patient received IV sedation and local anesthetic. Next a JL4 catheter was advanced over a guidewire under fluoroscopic guidance, and was engaged to the left coronary artery after which angiography was performed in multiple views. This was then removed over a wire, and a JR4 catheter was advanced in similar fashion was engaged the right coronary artery after which angiography was performed in multiple views. Next a bent pigtail catheter was advanced into the left ventricle, where hemodynamic measurements were obtained, left ventriculography was performed. I was able to visualize the sheath on a "david down" shot which showed the sheath was inserted in the right common femoral artery in a vessel suitable for closure. Hemostasis was obtained with Angio-Seal device with no residual bleeding. He was transferred from the wharf laborer in good condition without complication. Of note I did perform an angiogram of the right lower extremity given his history of right foot transmetatarsal amputation, which had a foul odor on my examination. Coronary angiography: The left main coronary artery is normal developed, and is free of disease. Left introducing artery has less than 30% proximal stenosis with widely patent mid LAD stent and LAD wrapping around the apex. The LAD gives off one average caliber diagonal branch with mild disease. Circumflex gives off 4 obtuse marginals. The first is thinner than average and has 60% ostial/proximal disease. The others have only mild disease less than 30%. There is one average caliber posterolateral with only mild disease of less than 30%. The right coronary artery is the dominant vessel but is smaller than average caliber. There is 50% proximal, mid, distal disease. There is a nearly average caliber PDA with no posterolaterals. Left ventriculography: There is apical akinesis involving the distal portion of the anterior and inferior murcia. The overall ejection fraction is 35-40%. There is minimal mitral regurgitation. Impression: 1. Mild to moderately reduced LV systolic function with ejection fraction is maybe 35-40% with apical akinesis 2. Right dominant system (smaller than average right coronary artery) 3. Widely patent mid LAD stented segment 4. Nonsignificant, mild to moderate CAD as detailed above. 5. 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 Marcial's chest discomfort is from noncardiac origin. His ejection fraction is slightly improved from previous evaluations. It is encouraging that his stented area in the mid LAD is widely patent. Wound care is following up his right transmetatarsal". I was concerned about the foul smell which prompted me to shoot him to come of his right lower extremity from the sheath. His critical proximal anterior tibial artery lesion is easily amenable to intervention if surgery believes this would help his wound heal? Anesthesia: minimal conscious sedation Surgeon / Physician: Dick Weiss Giver: other Estimated blood loss: minimal Specimens: none sent Condition: stable Disposition: floor - Medications / Follow-up
--- NOTE | 2016-07-13 10:39 | Cardiac Catheterization ---
Date of Procedure:: 07/13/16 Post-op diagnosis: same Anesthesia: minimal conscious sedation Surgeon / Physician: Dick Weiss Slack Line Yarder: other Estimated blood loss: minimal Specimens: none sent Condition: stable Disposition: floor - Medications / Follow-up
[2016-07-13] MEDS: LOSARTAN 25 MG TABLET PO SCH (11:29)
[2016-07-13] MEDS: SPIRONOLACTONE 25 MG TABLET PO SCH ×2 (11:29→21:20)
[2016-07-13] MEDS: FUROSEMIDE 80 MG TABLET PO SCH ×2 (11:29→16:53)
[2016-07-13] MEDS: POTASSIUM CHLORIDE 20 MEQ TABLET PO SCH (11:34)
[2016-07-13] MEDS: CLOPIDOGREL 75 MG TABLET PO SCH (11:34)
[2016-07-13] MEDS: ATORVASTATIN 40 MG TABLET PO SCH (11:34)
[2016-07-13] MEDS: RANOLAZINE 500 MG TABLET PO SCH (11:34)
[2016-07-13] MEDS: PANTOPRAZOLE 40 MG TABLET PO SCH (11:35)
[2016-07-14] MEDS: ALBUTEROL/IPRATROPIUM 3 ML NEB RESP TX SCH ×4 (01:23→19:32)
[2016-07-14 06:18] LABS: Basophils % 0.2 % (0.0-0.8); Eosinophils % 0.8 % (0.00-10.9); Hematocrit 29.3 VOL% (42.0-52.0); Hemoglobin 8.8 GM/DL (14.0-18.0); Immature Granulocytes % 0.6 %; Immature Granulocytes Absolute 0.03 #; Lymphocytes # 1.1 10*3/uL (1.4-4.0); Lymphocytes % 21.3 % (21.2-54.2); Mean Corpuscular Hemoglobin 26 PG (27-34); Mean Corpuscular Volume 86.2 FL (87-102); Mean Platelet Volume 10.2 FL (9.6-12.0); Monocytes # 0.5 10*3/uL (0.11-0.8); Monocytes % 9.6 % (1.7-12.7); Neutrophils # 3.5 10*3/uL (1.4-7.4); Neutrophils % 67.5 % (38.7-73.9); Platelet Count 215 T/CUMM (130-400); Red Cell Distribution Width 15.6 % (9.3-17.3); White Blood Count 5.1 T/CUMM (4-12)
[2016-07-14 06:42] LABS: Albumin 1.6 G/DL (3.4-5.0); Bilirubin,Total 0.4 MG/DL (0.2-1.0); Calcium 7.2 MG/DL (8.5-10.1); Osmolality,Calculated 287.3 MOS/KG (273-304); Potassium 3.7 MMOL/L (3.5-5.1); Total Protein 6.3 G/DL (6.4-8.3)
[2016-07-14] MEDS: LOSARTAN 25 MG TABLET PO SCH (08:36)
[2016-07-14] MEDS: PANTOPRAZOLE 40 MG TABLET PO SCH (08:36)
[2016-07-14] MEDS: CLOPIDOGREL 75 MG TABLET PO SCH (08:37)
[2016-07-14] MEDS: FUROSEMIDE 80 MG TABLET PO SCH (08:37)
[2016-07-14] MEDS: SPIRONOLACTONE 25 MG TABLET PO SCH (08:37)
[2016-07-14] MEDS: POTASSIUM CHLORIDE 20 MEQ TABLET PO SCH (08:37)
[2016-07-14] MEDS: CARVEDILOL 12.5 MG TABLET PO SCH ×2 (08:37→20:29)
[2016-07-14] MEDS: RANOLAZINE 500 MG TABLET PO SCH (08:37)
[2016-07-14] MEDS: ATORVASTATIN 40 MG TABLET PO SCH (08:37)
--- NOTE | 2016-07-14 13:46 | Cardiology Progress Note ---
Assessment and Plan (1) Hypertension Status: Acute Assessment and plan: 1. 76-year-old diabetic, with treated dyslipidemia, mild microcytic anemia, known CAD status post reported NV with LAD stent at [place] approximately early January 2016 (no records), who presented later that month to [place] with heart failure with EF 35% and severe anteroapical wall motion abnormality severe TR and moderate MR, now presenting with hours of persistent chest discomfort shortness of breath and initial negative troponin and EKG suggesting old anterior NV. 2. Exam also suggests left to right heart failure with modestly elevated neck veins, and crackles in the right base, as well as BNP 1800 confirming systolic acute on chronic heart failure 3. Probable PAD status post right midfoot amputation, followed in the wound clinic but foul odor noted today raising the question of infection? Surgery is following. We'll make sure her wound care nurse is following. 4. Recommend left heart catheterization from right groin access given his persistent chest pain, and recurrent heart failure with mildly reduced LV systolic function. He has not been compliant with follow-up as he is never seen a sow manager outside of the hospital. I discussed with him the great importance of this. He actually lives fairly close to the hospital and reports that his sister can take him to appointments. He lives in a house with several other people that he "knows". July 14 uptake: 1. Heart catheterization yesterday shows no significant CAD 2. He is currently on good heart failure medication and is hemodynamically stable 3. Still having occasional atypical chest pain 4. PAD noted catheterization with discrete 95% proximal right anterior tibial stenosis; with persistent ulcer on right stump, would defer to wound care clinic /Dr. Rickey Mendoza as to whether intervention is indicated ((transmetatarsal amputation January 2015) 5. Plan discharge in the morning, with follow with Dr. Petersen; he may benefit from follow-up echocardiogram outpatient. Current Visit: No (2) Anemia Status: Acute Current Visit: No (3) PVD (peripheral vascular disease) Status: Chronic Current Visit: No (4) Congestive heart failure Status: Acute Current Visit: No Cardiology - PN: Subj Interval history: Mr. Marcial is feeling better but has occasional brief episodes of chest pain which sounded atypical. He has no complaints his right groin access site. He is not having shortness of breath lying in bed currently. I discussed with the wound care nurse Lisa who says his stump ulcer is unchanged from last admission. Exam (Progress Note) - Constitutional Vitals: Period Temp Pulse Resp BP Sys/Zapien Pulse Ox Last 24 Hr 97.0 F-99.3 F 66-87 16-20 112-124/68-80 90-99 General appearance: normal weight, no acute distress - Head Head exam: Present: normal inspection, normocephalic, atraumatic - Respiratory Respiratory exam: Present: clear to auscultation bilaterally. Absent: stridor, wheezes - Cardiovascular Cardiovascular exam: Present: regular rate and rhythm. Absent: diastolic murmur , rubs - GI/Abdominal GI/Abdominal exam: Present: soft. Absent: tenderness, rebound - Extremities Exam Extremities exam: Present: other (and his right foot; previous odor is resolved. ). Absent: edema Result/EKG - Labs CBC & BMP: 07/14/16 05:21 07/14/16 05:21 Labs: Laboratory Results - last 24 hr 07/13/16 07/13/16 07/14/16 15:56 18:04 05:21 WBC RBC Hgb Hct MCV MCH MCHC RDW Plt Count MPV Neut % (Auto) Lymph % (Auto) Winston % (Auto) Eos % (Auto) Baso % (Auto) Neut # (Auto) Lymph # (Auto) Winston # (Auto) Eos # (Auto) Baso # (Auto) Immature Gran % Nucleated RBC % Immature Gran # Nucleated RBCs # Sodium 141 Potassium 3.7 Chloride 104 Carbon Dioxide 28 Anion Gap 12.7 BUN 25 H Creatinine 1.60 H GFR Calculation 59 BUN/Creatinine Ratio 15.00 Glucose 155 H POC Glucose 124 H 154 H Calculated Osmolality 287.3 Calcium 7.2 L Magnesium 2.0 Total Bilirubin 0.40 AST 27 ALT 20 Alkaline Phosphatase 187 H Total Protein 6.3 L Albumin 1.6 L Globulin 4.7 H Albumin/Globulin Ratio 0.3 L 07/14/16 07/14/16 07/14/16 05:21 07:03 10:44 WBC 5.1 RBC 3.40 L Hgb 8.8 L Hct 29.3 L MCV 86.2 L MCH 26 L MCHC 30.0 L RDW 15.6 Plt Count 215 MPV 10.2 Neut % (Auto) 67.5 Lymph % (Auto) 21.3 Winston % (Auto) 9.6 Eos % (Auto) 0.8 Baso % (Auto) 0.2 Neut # (Auto) 3.5 Lymph # (Auto) 1.1 L Winston # (Auto) 0.5 Eos # (Auto) 0.0 Baso # (Auto) 0.0 Immature Gran % 0.6 Nucleated RBC % 0.0 Immature Gran # 0.03 Nucleated RBCs # 0.00 Sodium Potassium Chloride Carbon Dioxide Anion Gap BUN Creatinine GFR Calculation BUN/Creatinine Ratio Glucose POC Glucose 157 H 200 H Calculated Osmolality Calcium Magnesium Total Bilirubin AST ALT Alkaline Phosphatase Total Protein Albumin Globulin Albumin/Globulin Ratio
[2016-07-15] MEDS: ALBUTEROL/IPRATROPIUM 3 ML NEB RESP TX SCH ×4 (00:27→19:08)
--- NOTE | 2016-07-15 08:43 | Discharge Summary ---
<Dejah Cm E - Last Filed: 07/15/16 08:34> Hospital Course - Hospital Course Hospital Course: 76-year-old male presented to the emergency department at [facility] July 13, 2016 with leg swelling, shortness of breath. He underwent elective cardiac catheterization, performed by Dr. Weiss, July 13, 2016 with the following impression noted: Impression: 1. Mild to moderately reduced LV systolic function with ejection fraction is maybe 35-40% with apical akinesis 2. Right dominant system (smaller than average right coronary artery) 3. Widely patent mid LAD stented segment 4. Nonsignificant, mild to moderate CAD as detailed above. 5. 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 Marcial's chest discomfort is from noncardiac origin. His ejection fraction is slightly improved from previous evaluations. It is encouraging that his stented area in the mid LAD is widely patent. Wound care is following up his right transmetatarsal wound. Also evaluated with his right lower extremity due to history of poor wound healing. His critical proximal anterior tibial artery lesion is easily amenable to intervention if surgery believes this would help his wound heal. Patient will be discharged home today. We will have him see Dr. Rickey III, within a week. He has been following him outpatient for this condition. Also, patient will be given a follow-up appoint with Dr. Petersen in approximately 4-6 weeks. Patient will need an echocardiogram outpatient and I will order this today, to be performed in the new few weeks at [facility] (RE: cardiomyopathy). Also, we will get a BMP, magnesium in 1 week at [facility]. Patient's acute on chronic congestive heart failure , EF 35-40%, [place] [employer] classification III on admission, classification to discharge. Patient has chronic renal insufficiency, stage II Having felt some patient at maximal medical therapy, patient is being discharged home in stable condition. Patient will resume all of his preadmission medications which include the following: Aspirin 81 mg orally daily Plavix 75 mg orally daily Coreg 12.5 mg orally twice daily Losartan 25 mg orally daily Pantoprazole 40 mg orally daily Potassium chloride 20 mEq orally daily Ranexa 500 mg orally twice daily (increased dose from once daily to twice daily) Atorvastatin 40 mg orally each evening Lasix 80 mg orally twice daily Spironolactone 25 mg orally daily. - Time spent with patient Time with patient DS: Greater than 30 minutes Diagnosis - Discharge Diagnosis (1) Insulin-requiring or dependent type II diabetes mellitus Status: Chronic (2) Hypertension Status: Chronic (3) Congestive heart failure Status: Resolved (4) CAD (coronary artery disease) Status: Chronic (5) PVD (peripheral vascular disease) Status: Chronic (6) Cardiomyopathy Status: Chronic (7) CKD (chronic kidney disease) Status: Chronic (8) Debility Status: Acute (9) Acute systolic congestive heart failure Status: Chronic (10) Dyslipidemia Status: Chronic Specialty Discharge - Follow Up or Referrals Follow up with: Teodora Petersen MD [Physician] - (4-6 weeks. Please schedule patient for echocardiogram at [facility] in 2-3 weeks (Dr. Petersen to read). RE: cardiomyopathy. Also, BMP, Mg one week [facility]. ) Discharge Plan - Discharge Data Disposition: Disch To Home/Self Care Condition at Discharge: Stable Discharge Diet: heart healthy Activity: other (Post cath expectations) Hygiene: other (Post cath expectations) Weight Bearing at Discharge: other (Post cath expectations) Driving: not until seen by doctor Contact your physician if you experience:: fever over 101, Difficulty voiding, Redness or swelling, Nausea/Vomiting, Shortness of breath, Bleeding, pain uncontrolled by pain medications - Discharge Medications New Ranolazine [Ranexa] 500 mg PO BID #60 tablet Continue Clopidogrel Bisulfate [Clopidogrel] 75 mg PO DAILY Pantoprazole Tab [Protonix Tab] 40 mg PO DAILY Acetaminophen Tab [Tylenol Tab] 325 mg PO Q4H PRN #0 tablet PRN Reason: fever, headache/body aches Aspirin EC Tab 81 mg PO DAILY tablet Carvedilol [Coreg] 12.5 mg PO BID tablet Skin Healing Oint (Aquaphor) [Aquaphor] 1 applic TOP PRN PRN #0 ointment PRN Reason: Dry Skin Atorvastatin [Lipitor] 40 mg PO DAILY #0 HYDROcodone/ACETAMIN 10-325 [[place] 10-325] 1 tablet PO Q6H PRN #30 PRN Reason: Pain Albuterol/Ipratropium Neb [Duoneb] 3 ml RESP TX RT Q4H Furosemide Tab [Lasix Tab] 80 mg PO BID #0 Losartan [Cozaar] 25 mg PO DAILY tablet Potassium Chloride Cap/Tab [K Dur] 20 meq PO DAILY tablet Spironolactone [Aldactone] 25 mg PO BID tablet Discontinued Ranolazine [Ranexa] 500 mg PO DAILY - Follow Up or Referral Follow Up: Teodora Petersen MD [Physician] - (4-6 weeks. Please schedule patient for echocardiogram at [facility] in 2-3 weeks (Dr. Petersen to read). RE: cardiomyopathy. Also, BMP, Mg one week [facility]. ) - Forms/Instructions Additional Discharge Instructions: Please verify patient has a follow-up appoint with Dr. Lang, III, within the next few weeks. Document this appointment and give to patient. Exam - Constitutional Vitals: Period Temp Pulse Resp BP Sys/Zapien Pulse Ox Last 24 Hr 97.5 F-99.1 F 65-82 17-22 104-120/61-72 78-100 Exam: General: [Appears well with no apparent distress.] [Pleasant and cooperative. ] [Appears comfortable.] HEENT: [PERRL, normocephalic, atraumatic. Mucous membranes moist. No jaundice noted. Conjunctiva moist and clear, sclerae anicteric] Neck: No JVD/HJR, no thyromegaly or lymphadenopathy noted. No carotid bruit appreciated Cardiac: [Regular rate and rhythm.] [No murmur rub or gallop.] Lungs: [Clear to auscultation without accessory muscle use to assist the respiratory pattern.] Not requiring oxygen Abdomen: Soft, bowel sounds normoactive. Nontender and nondistended. No abdominal bruit or thrill noted. No masses noted. Musculoskeletal: No fluid collection. Decreased range of motion is noted. Extremities: No edema of right lower extremity. Hyperpigmentation noted to right lower extremity, dressing dry and intact midfoot amputation. Upper extremity pulses 2+. Left lower extremity pulse one plus. Right groin soft, free of hematoma or bruit capillary refill less than 3 seconds. Skin: No unusual lesions or rashes. No skin breakdown appreciated. Neuro: Awake, alert and oriented 3. Moves all extremities well without hemiparesis or paralysis. No essential tremor is appreciated. Discharge Results Labs on day of discharge: Labs from last 24 hours 07/15/16 07/14/16 07/14/16 06:54 19:56 15:27 POC Glucose 104 140 H 164 H 07/14/16 10:44 POC Glucose 200 H - Imaging and Cardiology Cardiology Procedure: report reviewed by Procedure: Chest x-ray: report reviewed by me DS: Provider Date of admission: 07/13/16 01:13 Primary care physician: . Tawnya PCP Attending physician on admission: Teodora Petersen, Discharging clinician: Dejah Cm NP Expected date of discharge: 07/15/16 <Dick Weiss - Last Filed: 07/15/16 11:13> Diagnosis - Discharge Diagnosis (1) Hypertension Status: Chronic (2) Anemia Status: Acute (3) PVD (peripheral vascular disease) Status: Chronic (4) Congestive heart failure Status: Acute
[2016-07-15] MEDS ORDERED: FUROSEMIDE 40 MG/4 ML VIAL IV ONE (08:53)
[2016-07-15] MEDS: ASPIRIN EC 81 MG TABLET PO SCH (09:50)
[2016-07-15] MEDS: RANOLAZINE 500 MG TABLET PO SCH ×2 (09:51→21:03)
[2016-07-15] MEDS: PANTOPRAZOLE 40 MG TABLET PO SCH (09:51)
[2016-07-15] MEDS: CARVEDILOL 12.5 MG TABLET PO SCH ×2 (09:51→21:47)
[2016-07-15] MEDS: POTASSIUM CHLORIDE 20 MEQ TABLET PO SCH (09:51)
[2016-07-15] MEDS: CLOPIDOGREL 75 MG TABLET PO SCH (09:51)
[2016-07-15] MEDS: LOSARTAN 25 MG TABLET PO SCH (09:51)
[2016-07-15] MEDS ORDERED: ALUM/MAG/SIMETH/LIDO VISC 1:1 30 ML BOTTLE PO ONE (12:59)
--- NOTE | 2016-07-15 13:46 | Event Note ---
Patient was being prepared for discharge when he became nauseated. He described burning chest pain and states he does not feel as if he is well enough to go home and refused discharge. He is being given Zofran. We will also use a GI cocktail and assess his pain. Vital signs are stable as are labs. We will cancel discharge and, hopefully, discharge patient tomorrow
[2016-07-15] MEDS: FUROSEMIDE 80 MG TABLET PO SCH (16:20)
[2016-07-15] MEDS ORDERED: ATORVASTATIN 40 MG TABLET PO SCH (21:00)
[2016-07-16] MEDS: ALBUTEROL/IPRATROPIUM 3 ML NEB RESP TX SCH ×2 (00:21→07:21)
[2016-07-16 06:38] LABS: Basophils % 0.2 % (0.0-0.8); Eosinophils # 0.1 10*3/uL (0.0-0.87); Eosinophils % 1.3 % (0.00-10.9); Hematocrit 29.9 VOL% (42.0-52.0); Hemoglobin 9.1 GM/DL (14.0-18.0); Immature Granulocytes % 0.4 %; Immature Granulocytes Absolute 0.02 #; Lymphocytes # 1.3 10*3/uL (1.4-4.0); Lymphocytes % 28.2 % (21.2-54.2); Mean Corpuscular HGB Conc 30.4 GM/DL (32-36); Mean Corpuscular Hemoglobin 26 PG (27-34); Mean Corpuscular Volume 85.7 FL (87-102); Mean Platelet Volume 10.1 FL (9.6-12.0); Monocytes # 0.6 10*3/uL (0.11-0.8); Monocytes % 11.8 % (1.7-12.7); Neutrophils # 2.7 10*3/uL (1.4-7.4); Neutrophils % 58.1 % (38.7-73.9); Platelet Count 210 T/CUMM (130-400); Red Blood Count 3.49 MC/CUMM (3.8-5.5); Red Cell Distribution Width 15.4 % (9.3-17.3); White Blood Count 4.7 T/CUMM (4-12)
[2016-07-16 07:07] LABS: Calcium 7.9 MG/DL (8.5-10.1); Magnesium 2.2 MG/DL (1.8-2.4); Osmolality,Calculated 285.3 MOS/KG (273-304); Potassium 3.8 MMOL/L (3.5-5.1)
[2016-07-16] MEDS: PANTOPRAZOLE 40 MG TABLET PO SCH (09:00)
[2016-07-16] MEDS: CLOPIDOGREL 75 MG TABLET PO SCH (09:00)
[2016-07-16] MEDS: POTASSIUM CHLORIDE 20 MEQ TABLET PO SCH (09:00)
[2016-07-16] MEDS: LOSARTAN 25 MG TABLET PO SCH (09:00)
[2016-07-16] MEDS: CARVEDILOL 12.5 MG TABLET PO SCH (09:00)
[2016-07-16] MEDS: FUROSEMIDE 80 MG TABLET PO SCH (09:00)
[2016-07-16] MEDS: ASPIRIN EC 81 MG TABLET PO SCH (09:00)
[2016-07-16] MEDS: RANOLAZINE 500 MG TABLET PO SCH (09:00)
--- NOTE | 2016-07-16 11:30 | Discharge Summary ---
I, Estephanie He RN, am scribing for, and in the presence of, Dick Weiss MD 11:29. Hospital Course - Hospital Course Hospital Course: I have examined and interviewed Mr. Marcial. This 76-year-old male presented to the emergency department at [facility] July 13, 2016 with leg swelling, shortness of breath. He underwent elective cardiac catheterization, performed by Dr. Weiss, July 13, 2016 with the following impression noted: Impression: 1. Mild to moderately reduced LV systolic function with ejection fraction is maybe 35-40% with apical akinesis 2. Right dominant system (smaller than average right coronary artery) 3. Widely patent mid LAD stented segment 4. Nonsignificant, mild to moderate CAD as detailed above. 5. 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 Marcial's chest discomfort is from noncardiac origin. His ejection fraction is slightly improved from previous evaluations. It is encouraging that his stented area in the mid LAD is widely patent. Wound care is following up his right transmetatarsal wound. Also evaluated with his right lower extremity due to history of poor wound healing. His critical proximal anterior tibial artery lesion is easily amenable to intervention if surgery believes this would help his wound heal. Patient will be discharged home today. We will have him see Dr. Rickey III, within a week. He has been following him outpatient for this condition. Also, patient will be given a follow-up appoint with Dr. Petersen in approximately 4-6 weeks. Patient will need an echocardiogram outpatient and I will order this today, to be performed in the new few weeks at [facility] (RE: cardiomyopathy). Also, we will get a BMP, magnesium in 1 week at [facility]. Patient's acute on chronic congestive heart failure , EF 35-40%, [place] [employer] Association classification III on admission, classification to discharge. Patient has chronic renal insufficiency, stage II Mr. Marcial has continued to have significant because of chest discomfort after catheterization which are better today. We had initially planned discharge yesterday but he really did not want to go. I explained in this chest pain is noncardiac, and discussed his catheterization results with him. He is on proton pump inhibitor. He reports intermittent discomfort in his right foot and leg, but is being followed regularly by wound care center. His EKG is stable with creatinine of breath 1.6. Having felt some patient at maximal medical therapy, patient is being discharged home in stable condition. Patient will resume all of his preadmission medications which include the following: Aspirin 81 mg orally daily Plavix 75 mg orally daily Coreg 12.5 mg orally twice daily Losartan 25 mg orally daily Pantoprazole 40 mg orally daily Potassium chloride 20 mEq orally daily Ranexa 500 mg orally twice daily (increased dose from once daily to twice daily) Atorvastatin 40 mg orally each evening Lasix 80 mg orally twice daily Spironolactone 25 mg orally daily. 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 Please schedule patient for echocardiogram at [facility] in 2-3 weeks (Dr. Petersen to read). RE: cardiomyopathy. Also, NIKKI Mg one week [facility]. ) Discharge Plan - Discharge Data Disposition: Disch To Home/Self Care - Discharge Medications New Ranolazine [Ranexa] 500 mg PO BID #60 tablet Continue Clopidogrel Bisulfate [Clopidogrel] 75 mg PO DAILY Pantoprazole Tab [Protonix Tab] 40 mg PO DAILY Acetaminophen Tab [Tylenol Tab] 325 mg PO Q4H PRN #0 tablet PRN Reason: fever, headache/body aches Aspirin EC Tab 81 mg PO DAILY tablet Carvedilol [Coreg] 12.5 mg PO BID tablet Skin Healing Oint (Aquaphor) [Aquaphor] 1 applic TOP PRN PRN #0 ointment PRN Reason: Dry Skin Atorvastatin [Lipitor] 40 mg PO DAILY #0 HYDROcodone/ACETAMIN 10-325 [[place] 10-325] 1 tablet PO Q6H PRN #30 PRN Reason: Pain Albuterol/Ipratropium Neb [Duoneb] 3 ml RESP TX RT Q4H Furosemide Tab [Lasix Tab] 80 mg PO BID #0 Losartan [Cozaar] 25 mg PO DAILY tablet Potassium Chloride Cap/Tab [K Dur] 20 meq PO DAILY tablet Spironolactone [Aldactone] 25 mg PO BID tablet Discontinued Ranolazine [Ranexa] 500 mg PO DAILY - Follow Up or Referral Follow Up: Teodora Petersen MD [Physician] - (4-6 weeks. Please schedule patient for echocardiogram at [facility] in 2-3 weeks (Dr. Petersen to read). RE: cardiomyopathy. Also, BMP, Mg one week [facility]. ) - Forms/Instructions Instructions: Heart Failure (DC), Chest Pain (DC) Exam - Constitutional Vitals: Period Temp Pulse Resp BP Sys/Zapien Pulse Ox Last 24 Hr 97.1 F-99.1 F 68-89 18-20 91-159/49-91 95-100 General appearance: normal weight, no acute distress - Head Head exam: Absent: abrasion, hematoma - Eye Eye exam: Absent: periorbital swelling, laceration to eyelids - Neck Neck exam: Absent: tenderness - Respiratory Respiratory exam: Present: clear to auscultation bilaterally. Absent: accessory muscle use, chest wall tenderness - Cardiovascular Cardiovascular exam: Present: regular rate and rhythm. Absent: diastolic murmur , rubs, systolic murmur - GI/Abdominal GI/Abdominal exam: Present: normal bowel sounds, soft. Absent: distended, tenderness - Extremities Exam Extremities exam: Present: other (Right groin without evidence of bleeding or hematoma, no bruit appreciated. 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 Absent: edema - Neurological Exam Neurological exam: Present: alert, oriented X3 - Psychiatric Psychiatric exam: Present: normal mood, flat affect - Skin Skin exam: Present: warm, dry Discharge Results Labs on day of discharge: Labs from last 24 hours 07/16/16 07/16/16 07/16/16 06:50 05:06 05:06 WBC 4.7 RBC 3.49 L Hgb 9.1 L Hct 29.9 L MCV 85.7 L MCH 26 L MCHC 30.4 L RDW 15.4 Plt Count 210 MPV 10.1 Neut % (Auto) 58.1 Lymph % (Auto) 28.2 [place] % (Auto) 11.8 Eos % (Auto) 1.3 Baso % (Auto) 0.2 Neut # (Auto) 2.7 Lymph # (Auto) 1.3 L [place] # (Auto) 0.6 Eos # (Auto) 0.1 Baso # (Auto) 0.0 Immature Gran % 0.4 Nucleated RBC % 0.0 Immature Gran # 0.02 Nucleated RBCs # 0.00 Sodium 141 Potassium 3.8 Chloride 103 Carbon Dioxide 28 Anion Gap 13.8 BUN 26 H Creatinine 1.60 H GFR Calculation 59 BUN/Creatinine Ratio 16.00 Glucose 101 POC Glucose 122 H Calculated Osmolality 285.3 Calcium 7.9 L Magnesium 2.2 07/15/16 07/15/16 07/15/16 20:16 16:18 10:59 WBC RBC Hgb Hct MCV MCH MCHC RDW Plt Count MPV Neut % (Auto) Lymph % (Auto) [place] % (Auto) Eos % (Auto) Baso % (Auto) Neut # (Auto) Lymph # (Auto) [place] # (Auto) Eos # (Auto) Baso # (Auto) Immature Gran % Nucleated RBC % Immature Gran # Nucleated RBCs # Sodium Potassium Chloride Carbon Dioxide Anion Gap BUN Creatinine GFR Calculation BUN/Creatinine Ratio Glucose POC Glucose 145 H 128 H 129 H Calculated Osmolality Calcium Magnesium - Imaging and Cardiology Cardiology Procedure: report reviewed by me Procedure: Chest x-ray: report reviewed by me DS: Provider Expected date of discharge: 07/16/16 Isela Castellanos Randall Scott, MD, personally performed the services described in this documentation, ascribed by Estephanie He RN in my presence, and it is both accurate and complete [id number] .
[2016-07-16 12:31] VITALS: BP 121/69
== END 2016-07-16 13:39 | disposition home health service (06) | DRG 286 ==
LOC: EDUNIT# → EDBD → N.ED 20:46 → N.EDINP 07-13 01:13 → N.2E 07-13 01:48
PROVIDERS: ADMIT Internal Medicine Cardiovascular Disease; ATTEND Internal Medicine Cardiovascular Disease
PROC: CLCCHCL (ICD-10-PCS; 2016-07-13 09:45)

== ENCOUNTER 2016-08-01 14:26 | Inpatient (IN) ==
--- NOTE | 2016-08-01 17:07 | EKG Report ---
Stationary ECG Study [facility] ER Test Date: 08/01/2016 3:04:02 PM Pat Name: DAGMAR PURCELL Department: Room: Gender: M Kettle Coordinator: Beatriz Srivastava : 1940 Requested by: Kevin Coffman Order Number: [id number] Reading MD: LUIS FITCH Intervals [place] Rate: 93 P: 82 [place]: 140 QRS: 35 QRSD: 101 T: 69 QT: 383 QTc: 434 Interpretive Statements Normal sinus rhythm WITH INCOMPLETE RBBB AND LEFT ATRIAL ABNORMALITY WITH LOW VOLTAGE NON SPECIFIC ST-T CHANGES Electronically Signed On 08-02-16 09:03:13 CDT by LUIS FITCH [email or web address]
--- NOTE | 2016-08-01 17:07 | Emergency Department Note ---
Arrival - Arrival Chief Complaint: Chest Pain Stated Complaint: shortness of breath and pain across chest ED Nursing Triage Note: PT COMPLAINS OF SOB AND CP FOR PAST COUPLE OF DAYS SENT UP HER FOR EVALUATION BY [facility] Mode of Arrival: Wheelchair Limitations: No Limitations Source: Patient Time Seen by Provider: 08/01/16 16:56 - History of Present Illness HPI Narrative: The patient complains of shortness of breath and intermittent chest pain since last night. The chest pain is sharp and lasts only a few seconds and he is currently having none. He has had no nausea, vomiting or diaphoresis. His shortness of breath is exacerbated by exertion and supine position. He also reports increased swelling in the lower extremities all the way to the thighs. He has had similar symptoms in the past due to his congestive heart failure. He is on Lasix and says he has been compliant. Patient also has a history of CAD and says he had an OK in December with a stent placed. Allergies/Adverse Reactions: Allergies Allergy/AdvReac Type Severity Reaction Status Date / Time Sulfa (Sulfonamide Allergy HIVES Verified 08/01/16 14:58 Antibiotics) Home Medications: Home Medications Medication Instructions Recorded Confirmed Type Clopidogrel Bisulfate [Clopidogrel] 75 mg PO DAILY 02/07/16 07/13/16 History Pantoprazole Tab [Protonix Tab] 40 mg PO DAILY 02/07/16 07/13/16 History Acetaminophen Tab [Tylenol Tab] 325 mg PO Q4H PRN #0 tablet 02/12/16 07/13/16 Rx Aspirin EC Tab 81 mg PO DAILY tablet 02/12/16 07/13/16 Rx Atorvastatin [Lipitor] 40 mg PO DAILY #0 02/12/16 07/13/16 Rx Carvedilol [Coreg] 12.5 mg PO BID tablet 02/12/16 07/13/16 Rx HYDROcodone/ACETAMIN 10-325 [[place] 1 tablet PO Q6H PRN #30 02/12/16 07/13/16 Rx 10-325] Skin Healing Oint (Aquaphor) 1 applic TOP PRN PRN #0 ointment 02/12/16 07/13/16 Rx [Aquaphor] Albuterol/Ipratropium Neb [Duoneb] 3 ml RESP TX RT Q4H 05/29/16 07/13/16 Rx Furosemide Tab [Lasix Tab] 80 mg PO BID #0 05/29/16 07/13/16 Rx Losartan [Cozaar] 25 mg PO DAILY tablet 05/29/16 07/13/16 Rx Potassium Chloride Cap/Tab [K Dur] 20 meq PO DAILY tablet 05/29/16 07/13/16 Rx Spironolactone [Aldactone] 25 mg PO BID tablet 05/29/16 07/13/16 Rx Ranolazine [Ranexa] 500 mg PO BID #60 tablet 07/15/16 Rx Review of System - Review of System 12 point system: reviewed and no additional remarkable complaints except as stated - Review of System Constitutional: Absent: diaphoresis, fever Head/Ears/Nose/Throat: Absent: nasal drainage, sore throat Respiratory: Present: other (Dyspnea). Absent: cough Cardiovascular: Present: chest pain, dyspnea on exertion, orthopnea, edema. Absent: palpitations, syncope Gastrointestinal: Absent: abdominal pain, nausea, vomiting Musculoskeletal: Absent: arm pain, back pain, neck pain Medical,Surgical,& Family Hx - Medical History Cardio: History of: CHF, CAD, Hypertension, OK, Cardiovascular Problems Neurology: History of: Migraine Endocrine: History of: Diabetes Mellitus (IDDM) Respiratory: History of: Pneumonia, Respiratory Problems (wears o2 at night) Gastrointestinal: History of: GERD, Hemorrhoids Musculoskeletal: History of: Amputation (Right toes), Back/Neck Problems, Musculoskeletal Problems (weak) Hematology: History of: Anemia - Surgical History Cardiac Surgeries: Sugical HX of: Cardiac Catheterization Neurologic Surgeries: Surgical HX of: Neurologic Surgery Abdominal Surgeries: Surgical HX of: Abdominal Surgery, Appendectomy, Hernia Repair - Family History Family History: Reports;: Family Diabetes (mom) - Social History Smoking Status: Smoker, status unknown Exam Physical Examination: GENERAL: Alert. No acute distress. HEENT: Normocephalic and atraumatic. There is no nasal drainage. No pharyngeal erythema or exudate. NECK: Normal inspection. Supple. No lymphadenopathy or meningismus. LUNGS: No respiratory distress. Good air movement. Few crackles in the bases. HEART: Regular rate and rhythm. ABDOMEN: Soft, nontender and nondistended with normoactive bowel sounds. BACK: Normal inspection. SKIN: Color normal. Warm and dry. There is scaling and venous stasis changes of the lower legs bilaterally. EXTREMITIES: Nontender. There is a partial right foot amputation and the patient is foot is bandaged. There is brawny and pitting edema in the lower extremities. Pitting edema extends to the mid thighs bilaterally. NEUROLOGICAL/PSYCHIATRIC: Alert and oriented -3 with normal mood and affect. Cranial nerves normal. No motor or sensory deficit. Vital Signs: Vital Signs Temperature 97.4 F L 08/01/16 16:54 Pulse Rate 84 08/01/16 18:57 Respiratory Rate 181 H 08/01/16 18:57 Blood Pressure 158/89 08/01/16 18:57 O2 Sat by Pulse Oximetry 99 08/01/16 18:57 Course - Reevaluation(s) Reevaluation #1: I have discussed the patient with Dr. Benites and will admit to him. The patient has remained stable here in the ER. Time: 19:06 Results - Labs CBC & BMP: 08/01/16 16:59 08/01/16 16:59 Lab Results: I have reviewed the patients labs Labs: Laboratory Tests 08/01/16 08/01/16 08/01/16 16:59 16:59 16:59 INR 1.2 D-Dimer, Quantitative 1.4 Total Bilirubin 0.40 AST 30 ALT 26 Troponin I B-Natriuretic Peptide 2643 H 08/01/16 16:59 INR D-Dimer, Quantitative Total Bilirubin AST ALT Troponin I 0.079 H B-Natriuretic Peptide - Impressions Chest x-ray shows pulmonary edema. EKG shows a normal sinus rhythm at 93 with nonspecific T-wave abnormality. Disposition Clinical Impression: Atypical chest pain, CHF (congestive heart failure) Case discussed with: patient Disposition: Still a Patient Condition: Stable Time of Disposition: 19:07
[2016-08-01 17:21] LABS: Basophils % 0.2 % (0.0-0.8); Eosinophils % 0.8 % (0.00-10.9); Hematocrit 34.4 VOL% (42.0-52.0); Hemoglobin 10.7 GM/DL (14.0-18.0); Immature Granulocytes % 0.4 %; Immature Granulocytes Absolute 0.02 #; Lymphocytes # 1.4 10*3/uL (1.4-4.0); Lymphocytes % 26.2 % (21.2-54.2); Mean Corpuscular HGB Conc 31.1 GM/DL (32-36); Mean Corpuscular Hemoglobin 25 PG (27-34); Mean Corpuscular Volume 81.5 FL (87-102); Mean Platelet Volume 9.4 FL (9.6-12.0); Monocytes # 0.4 10*3/uL (0.11-0.8); Monocytes % 7.5 % (1.7-12.7); Neutrophils # 3.4 10*3/uL (1.4-7.4); Neutrophils % 64.9 % (38.7-73.9); Platelet Count 250 T/CUMM (130-400); Red Blood Count 4.22 MC/CUMM (3.8-5.5); White Blood Count 5.2 T/CUMM (4-12)
--- NOTE | 2016-08-01 17:30 | XRay Report ---
Referring Physician: Kevin Jacobs Exam: XR chest 1V portable Date: August 01, 2016 at 5:11 PM Reason: Dyspnea/shortness of breath Comparison: Chest one view portable July 12, 2016 Findings: The cardiac silhouette is again enlarged. The interstitial markings are diffusely prominent bilaterally, suggesting pulmonary edema. There also hazy opacities at the right lung base which could represent atelectasis or pneumonia. No pneumothorax is identified, but minimal bilateral pleural fluid is suspected. The osseous structures appear stable. Impression: 1. Cardiomegaly. 2. The interstitial markings are prominent bilaterally, suggesting pulmonary edema. There is also minimal bilateral pleural fluid. 3. There are hazy opacities at the right lung base. This could represent atelectasis or pneumonia. PROCEDURE INTERPRETED AT [facility] DEPARTMENT OF RADIOLOGY Final Report Signed by: Dr. Flor Villegas
[2016-08-01 17:43] LABS: Albumin 1.7 G/DL (3.4-5.0); Bilirubin,Total 0.4 MG/DL (0.2-1.0); Magnesium 1.9 MG/DL (1.8-2.4); Osmolality,Calculated 285.1 MOS/KG (273-304); Potassium 3.3 MMOL/L (3.5-5.1); Total Protein 7.8 G/DL (6.4-8.3)
[2016-08-01 17:44] LABS: D-Dimer 1.4 MG/L FEU; INR 1.2; PT Patient Result 12.3 SECS; Partial Thromboplastin Time 29.6 SECS (0-40)
[2016-08-01] MEDS ORDERED: FUROSEMIDE 20 MG/2 ML VIAL IV STA (19:07)
[2016-08-01] MEDS ORDERED: FUROSEMIDE 20 MG/2 ML VIAL ONE (19:19)
[2016-08-01] MEDS ORDERED: FUROSEMIDE 100 MG/10 ML VIAL ONE (19:19)
[2016-08-01] MEDS ORDERED: DEXTROSE 50% 25 GM/50 ML VIAL IV PRN (20:37)
[2016-08-01] MEDS ORDERED: traZODone 50 MG TABLET PO PRN (20:37)
[2016-08-01] MEDS ORDERED: MAGNESIUM SULF RIDER 4 GM in PREMIX 1 EACH IV PRN (20:37)
[2016-08-01] MEDS ORDERED: PROMETHAZINE 25 MG TABLET PO PRN (20:37)
[2016-08-01] MEDS ORDERED: GLUCAGON 1 MG VIAL IM PRN (20:37)
[2016-08-01] MEDS ORDERED: MAGNESIUM SULF RIDER 2 GM in PREMIX 1 EACH IV PRN (20:37)
[2016-08-01] MEDS: CARVEDILOL 12.5 MG TABLET PO SCH (21:25)
[2016-08-01] MEDS: SPIRONOLACTONE 25 MG TABLET PO SCH (21:25)
[2016-08-02] MEDS: ONDANSETRON 4 MG/2 ML VIAL IV PRN ×2 (04:45→15:15)
--- NOTE | 2016-08-02 08:16 | EKG Report ---
Please refer to the EKG image. Final interpretation is pending.
[2016-08-02] MEDS ORDERED: SKIN HEALING OINT (AQUAPHOR) 50 GM TUBE TOP PRN (08:46)
[2016-08-02] MEDS ORDERED: ACETAMINOPHEN 325 MG TABLET PO PRN (08:46)
[2016-08-02] MEDS ORDERED: NITROGLYCERIN SL 0.4 MG TABLET SL PRN (08:46)
[2016-08-02] MEDS: SPIRONOLACTONE 25 MG TABLET PO SCH ×2 (08:52→21:42)
--- NOTE | 2016-08-02 08:52 | Cardiology History & Physical ---
Assessment and Plan - Time spent with patient Time spent with patient: Greater than 30 minutes (Chart review, film review examination, orders patient interviewed education documentation) (1) Anemia Status: Chronic Assessment and plan: This is likely anemia of chronic disease. Appears stable Current Visit: No (2) CAD (coronary artery disease) Status: Chronic Assessment and plan: He has diffuse small vessel disease that may be etiology of his chest pain he is on Ranexa. His large epicardial coronary arteries were widely patent with previously deployed LAD stent widely patent approximately 4 weeks ago Current Visit: No Qualifiers: Coronary Disease-Associated Artery/Lesion type: [place] artery (3) Hypokalemia Status: Acute Assessment and plan: We will replete. He is on multiple diuretics empirically replete magnesium Current Visit: No (4) Osteomyelitis Status: Chronic Current Visit: No Qualifiers: Osteomyelitis location: foot Laterality: right (5) S/P PCI LAD with OLIVIA Status: Chronic Assessment and plan: At [place] in 2015 Current Visit: No (6) PVD (peripheral vascular disease) Status: Chronic Current Visit: No (7) Cardiomyopathy Status: Chronic Assessment and plan: Systolic dysfunction with ejection fraction approximately 40% at last evaluation both systolic and diastolic dysfunction and acutely decompensated heart failure [place] [employer] class II decompensated to [place] [employer] class IV Current Visit: No (8) CKD (chronic kidney disease) Status: Chronic Current Visit: No (9) Debility Status: Chronic Current Visit: No (10) Acute exacerbation of CHF (congestive heart failure) Status: Resolved Current Visit: No Qualifiers: Congestive heart failure type: combined Qualified Code(s): I50.43 - Acute on chronic combined systolic (congestive) and diastolic (congestive) heart failure (11) Atypical chest pain Status: Chronic Assessment and plan: This is a recurrent or continual complaint the gentleman with known coronary artery disease next very difficult. He has been mild stagnant elevation of troponin to his underlying cardiomyopathy no EKG changes. Medical management. Current Visit: Yes History of Present Illness Chief complaint: Chest pain shortness of breath History of present illness: Mr. Marcial is a 76 year old male who has very poor insight into his medical problems and/or his medical history. He states that he had a stents placed here last week and then some before that however in reviewing the chart I find that he had cath on 07/13/2016 that showed no epicardial stenosis and a widely patent stent in the LAD that per records was placed at [place] several months ago ( late last year). An ejection fraction approximately 40% at that time a diffuse small vessel disease was started on Ranexa as well as other routine medical therapy for coronary artery disease. Mr. Marcial states that he lives in a " house without people" and has developed more shortness of breath and chest discomfort that he describes as a fullness or tightness he has had orthopnea and worsening lower extremity edema. He presented to the emergency room he is evaluated by Dr. Jacobs I discussed with Dr. Jacobs last night on the phone admitted the patient with diuresis. He states that he some better this morning when I saw him in his room on telemetry. He denies any chest pain at this time. I reviewed his chart his old films his old chart his telemetry strips his labs and his EKG. He has serial ECGs that show incomplete right bundle branch block and left atrial abnormality with low voltage in chest leads he has diffuse T-wave inversion is nonspecific. He is currently pain-free he is resting in the bed of the head up approximately 20. Home Medications Medication Instructions Recorded Confirmed Type Clopidogrel Bisulfate [Clopidogrel] 75 mg PO DAILY 02/07/16 08/01/16 History Pantoprazole Tab [Protonix Tab] 40 mg PO DAILY 02/07/16 08/01/16 History Acetaminophen Tab [Tylenol Tab] 325 mg PO Q4H PRN #0 tablet 02/12/16 08/01/16 Rx Aspirin EC Tab 81 mg PO DAILY tablet 02/12/16 08/01/16 Rx Atorvastatin [Lipitor] 40 mg PO DAILY #0 02/12/16 08/01/16 Rx Carvedilol [Coreg] 12.5 mg PO BID tablet 02/12/16 08/01/16 Rx HYDROcodone/ACETAMIN 10-325 [[place] 1 tablet PO Q6H PRN #30 02/12/16 08/01/16 Rx 10-325] Skin Healing Oint (Aquaphor) 1 applic TOP PRN PRN #0 ointment 02/12/16 08/01/16 Rx [Aquaphor] Albuterol/Ipratropium Neb [Duoneb] 3 ml RESP TX RT Q4H 05/29/16 08/01/16 Rx Furosemide Tab [Lasix Tab] 80 mg PO BID #0 05/29/16 08/01/16 Rx Losartan [Cozaar] 25 mg PO DAILY tablet 05/29/16 08/01/16 Rx Potassium Chloride Cap/Tab [K Dur] 20 meq PO DAILY tablet 05/29/16 08/01/16 Rx Spironolactone [Aldactone] 25 mg PO BID tablet 05/29/16 08/01/16 Rx Ranolazine [Ranexa] 500 mg PO BID #60 tablet 07/15/16 08/01/16 Rx Nitroglycerin Sl Tab [Nitrostat] 0.4 mg SL Q5M PRN 08/01/16 08/01/16 History Allergies Allergy/AdvReac Type Severity Reaction Status Date / Time Sulfa (Sulfonamide Allergy HIVES Verified 08/01/16 14:58 Antibiotics) - Constitutional Constitutional: Present: anorexia, malaise, weight loss. Absent: night sweats, stops breathing during sleep - EENT Eyes: Present: blurry vision Ears: Present: decreased hearing Nose, mouth and throat: Present: headache(s) - Cardiovascular Cardiovascular: Present: chest pain at rest, dyspnea, dyspnea on exertion, edema , orthopnea, PND. Absent: chest pain with activity, diaphoresis, palpitations - Respiratory Respiratory: Present: dyspnea, dyspnea on exertion. Absent: wheezing, snoring - Gastrointestinal Gastrointestinal: Present: constipation. Absent: abdominal pain, cramping, diarrhea, dyspepsia - Genitourinary Genitourinary: Present: difficulty urinating, nocturia - Musculoskeletal Musculoskeletal: Present: arthralgias - Neurological Neurological: Present: abnormal gait. Absent: frequent falls, headache(s), memory loss - Psychiatric Psychiatric: Present: depression. Absent: anxiety - Endocrine Endocrine: Present: cold intolerance. Absent: heat intolerance - Hematologic/Lymphatic Hematologic/Lymphatic: Absent: easy bleeding, easy bruising Medical,Surgical,& Family Hx - Medical History Cardio: History of: CHF (EF 40% last month the cath), CAD (PCI of the LAD at [place] with diffuse small vessel disease and 417), Hypertension Psychological: No history of: Anxiety Disorders, Behavior Problems, Bipolar Disorder Neurology: History of: Migraine No history of: Brain Aneurysm, Cerebral Hemorrhage, Cerebrovascular Accident , Cerebral Palsy, Dementia Endocrine: History of: Diabetes Mellitus (IDDM) No history of: Thyroid Disorder, Endocrine Problems Respiratory: History of: Pneumonia, Respiratory Problems (wears o2 at night) No history of: Obstructive Sleep Apnea, Pulmonary Embolism Renal: No history of: Renal (Kidney) Cancer, Dialysis, Renal Failure, Renal Problems Genitourinary: No history of: Bladder Problem, Kidney Stones, Prostate Problems, Recurring Urinary Tract Infections, Genitourinary Cancer, Problems Gastrointestinal: History of: GERD, Hemorrhoids Musculoskeletal: 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 Vinay Shipley), Back/ Neck Problems, Musculoskeletal Problems (weak and debilitated with osteoarthritis) Hematology: History of: Anemia No history of: Blood Transfusion Reaction - Surgical History Cardiac Surgeries: Sugical HX of: Cardiac Catheterization (07/[address] Weiss) Thoracic Surgeries: Patient denies;: Kidney (Renal Surgery), Lithotripsy, Nephrectomy, Organ Transplant, Lobectomy Neurologic Surgeries: Surgical HX of: Neurologic Surgery Patient denies: Brain Aneurysm, Cerebral Hemorrhage HEENT Surgeries: Patient denies: Eye Surgery, Thyroid Surgery, Tonsilectomy & Adenoidectomy Abdominal Surgeries: Surgical HX of: Abdominal Surgery, Appendectomy, Hernia Repair Patient denies: Colonoscopy, Gastric Bypass Surgery, EGD Reproductive Surgeries: Patient denies;: Cystoscopy, Genitourinary Surgery, Prostate Surgery Additional Surgical History: Ray amputation right toes with skin graft from right lateral thigh - Family History Family History: Reports;: Family Diabetes (mom) - Social History Smoking Status: Smoker, status unknown Frequency of Alcohol Use: None Type of Drug Use: None Marital Status: Lives With:: Some sort of retirement Cardiology Physical Exam - Constitutional Vitals: Vital Signs Temp Pulse Resp BP Pulse Ox 98.3 F 77 20 145/84 98 08/02/16 08:00 08/02/16 08:00 08/02/16 08:00 08/02/16 08:00 08/02/16 08:00 Intake and Output 08/01/16 08/02/16 08/02/16 23:59 07:59 15:59 Intake Total 340 / 340 360 / 360 Output Total 1800 / 1800 1000 / 1000 Balance -1460 / -1460 -640 / -640 Intake: Oral 340 / 340 360 / 360 Output: Urine 1800 / 1800 1000 / 1000 Other: Voiding Method Urinal Urinal # Bowel Movements 1 Weight 92.134 kg 90.809 kg Patient Weight 08/02/16 23:59 Weight 90.809 kg General appearance: normal weight - Head Head exam: Present: normal inspection - Eye Eye exam: Present: other (Arcus some mild temporal atrophy) - Respiratory Respiratory exam: Present: decreased breath sounds, rales (Scant bibasilar rales ) - Cardiovascular Cardiovascular exam: Present: regular rate and rhythm (He has not S4 gallop I did not hear an S3) - GI/Abdominal GI/Abdominal exam: Present: normal bowel sounds - Extremities Exam Extremities exam: Present: normal inspection - Neurological Exam Neurological exam: Present: alert, oriented X3 - Psychiatric Psychiatric exam: Present: normal affect, depressed - Skin Skin exam: Present: normal color, warm, other (Right foot stump is dressed I did not undress skin graft on the right lateral aspect right thigh looks good, chronic) Result/EKG - Labs CBC & BMP: 08/01/16 16:59 08/01/16 16:59 Labs: Laboratory Results - last 24 hr 08/01/16 08/01/16 08/02/16 20:29 23:05 08:07 POC Glucose 150 H Troponin I 0.073 H 0.064 H - EKG EKG results: interpreted by me (Normal sinus rhythm with incomplete right bundle branch block and low voltage in the precordial leads left atrial abnormality)
[2016-08-02] MEDS: LOSARTAN 25 MG TABLET PO SCH (08:53)
[2016-08-02] MEDS: CARVEDILOL 12.5 MG TABLET PO SCH ×2 (08:53→21:42)
[2016-08-02] MEDS: POTASSIUM CHLORIDE 20 MEQ TABLET PO SCH ×3 (08:54→21:42)
[2016-08-02] MEDS: ASPIRIN EC 81 MG TABLET PO SCH (08:54)
[2016-08-02] MEDS: CLOPIDOGREL 75 MG TABLET PO SCH (08:54)
[2016-08-02] MEDS ORDERED: RANOLAZINE 500 MG TABLET PO SCH (09:00)
[2016-08-02] MEDS ORDERED: POTASSIUM CHLORIDE 20 MEQ TABLET PO SCH (09:00)
[2016-08-02] MEDS ORDERED: ATORVASTATIN 10 MG TABLET PO SCH (09:00)
[2016-08-02] MEDS: MAGNESIUM OXIDE 400 MG TABLET PO SCH ×2 (09:00→21:41)
[2016-08-02] MEDS ORDERED: PANTOPRAZOLE 40 MG TABLET PO SCH (09:00)
[2016-08-02] MEDS: PANTOPRAZOLE 40 MG TABLET PO SCH (09:02)
[2016-08-02] MEDS: RANOLAZINE 500 MG TABLET PO SCH ×2 (09:23→21:41)
[2016-08-02] MEDS: ALBUTEROL/IPRATROPIUM 3 ML NEB RESP TX SCH ×4 (11:35→23:48)
[2016-08-02] MEDS: FUROSEMIDE 40 MG/4 ML VIAL IV SCH (15:46)
[2016-08-03] MEDS: ALBUTEROL/IPRATROPIUM 3 ML NEB RESP TX SCH ×6 (03:24→23:06)
[2016-08-03 05:21] LABS: Basophils % 0.2 % (0.0-0.8); Eosinophils # 0.1 10*3/uL (0.0-0.87); Eosinophils % 1.8 % (0.00-10.9); Hematocrit 29.7 VOL% (42.0-52.0); Hemoglobin 9.2 GM/DL (14.0-18.0); Immature Granulocytes % 0.5 %; Immature Granulocytes Absolute 0.02 #; Lymphocytes # 1.4 10*3/uL (1.4-4.0); Lymphocytes % 31.8 % (21.2-54.2); Mean Corpuscular Hemoglobin 26 PG (27-34); Mean Corpuscular Volume 82.3 FL (87-102); Mean Platelet Volume 9.9 FL (9.6-12.0); Monocytes # 0.4 10*3/uL (0.11-0.8); Monocytes % 9.5 % (1.7-12.7); Neutrophils # 2.5 10*3/uL (1.4-7.4); Neutrophils % 56.2 % (38.7-73.9); Platelet Count 249 T/CUMM (130-400); Red Blood Count 3.61 MC/CUMM (3.8-5.5); Red Cell Distribution Width 14.9 % (9.3-17.3); White Blood Count 4.4 T/CUMM (4-12)
[2016-08-03 05:57] LABS: Calcium 7.8 MG/DL (8.5-10.1); Osmolality,Calculated 285.3 MOS/KG (273-304); Potassium 3.7 MMOL/L (3.5-5.1)
[2016-08-03] MEDS: ONDANSETRON 4 MG/2 ML VIAL IV PRN (06:37)
[2016-08-03] MEDS: ASPIRIN EC 81 MG TABLET PO SCH (08:07)
[2016-08-03] MEDS: RANOLAZINE 500 MG TABLET PO SCH ×2 (08:07→20:46)
[2016-08-03] MEDS: MAGNESIUM OXIDE 400 MG TABLET PO SCH ×2 (08:08→20:46)
[2016-08-03] MEDS: CARVEDILOL 12.5 MG TABLET PO SCH ×2 (08:08→20:46)
[2016-08-03] MEDS: LOSARTAN 25 MG TABLET PO SCH (08:08)
[2016-08-03] MEDS: PANTOPRAZOLE 40 MG TABLET PO SCH (08:08)
[2016-08-03] MEDS: ATORVASTATIN 40 MG TABLET PO SCH (08:08)
[2016-08-03] MEDS: CLOPIDOGREL 75 MG TABLET PO SCH (08:08)
[2016-08-03] MEDS: POTASSIUM CHLORIDE 20 MEQ TABLET PO SCH ×3 (08:08→20:45)
[2016-08-03] MEDS: FUROSEMIDE 40 MG/4 ML VIAL IV SCH ×2 (08:10→15:41)
[2016-08-03] MEDS: SPIRONOLACTONE 25 MG TABLET PO SCH (08:10)
--- NOTE | 2016-08-03 09:30 | Cardiology Progress Note ---
Assessment and Plan (1) CHF (congestive heart failure) Status: Acute Assessment and plan: 1. Mr. Marcial has acute on chronic systolic heart failure (previous EF 40%), with resolved atypical chest discomfort and was ruled out for myocardial infarction. 2. Modest drop in hematocrit, without overt bleeding 3. Hemodynamically stable with reasonable blood pressure control 4. Status post anterior [facility] December 2015 when he had EF around 20% , and had stenting of his proximal to high mid LAD, confirmed to be widely patent June 2016 here with nonsignificant CAD. 5. 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 It has had some ulceration, and the amputation site is not healed yet. I catheterization 100 and a gram of his right lower extremity he had a critical discrete 99% proximal right anterior tibial stenosis. His surgery was done by Dr. Vinay Shipley, and he is followed by Dr. Rickey Borjas in the wound care clinic (missed his appointment today). I discussed with him if revascularization will be of help with regard to healing his amputation site. 6. High intensity statin and dual antiplatelet therapy is recommended if tolerated. 7. We will continue to follow with you. Current Visit: Yes (2) Atypical chest pain Status: Chronic Current Visit: Yes (3) Hypertension Status: Chronic Current Visit: No Cardiology - PN: Subj Interval history: Mr. Marcial is having less shortness of breath and edema. He does still have some shortness of breath. He reports he did have trouble "making some water". He seems to describe some scrotal edema? He is eating his breakfast well during my examination. He has not had any overt bleeding. Exam (Progress Note) - Constitutional Vitals: Period Temp Pulse Resp BP Sys/Zapien Pulse Ox Last 24 Hr 97.4 F-97.9 F 61-79 16-21 110-137/69-76 90-99 General appearance: normal weight, mild distress - Head Head exam: Present: normal inspection, normocephalic, atraumatic - Neck Neck exam: Present: normal inspection - Respiratory Respiratory exam: Present: rales (Few basilar rales). Absent: rhonchi, stridor , wheezes - Cardiovascular Cardiovascular exam: Present: regular rate and rhythm. Absent: diastolic murmur , rubs - GI/Abdominal GI/Abdominal exam: Present: soft. Absent: tenderness - Extremities Exam Extremities exam: Present: other (Right foot with transmetatarsal amputation is bandaged). Absent: edema - Neurological Exam Neurological exam: Present: alert, oriented X3 Result/EKG - Labs CBC & BMP: 08/03/16 04:25 08/03/16 04:25 Labs: Laboratory Results - last 24 hr 08/02/16 08/02/16 08/02/16 12:09 16:44 20:46 WBC RBC Hgb Hct MCV MCH MCHC RDW Plt Count MPV Neut % (Auto) Lymph % (Auto) [place] % (Auto) Eos % (Auto) Baso % (Auto) Neut # (Auto) Lymph # (Auto) [place] # (Auto) Eos # (Auto) Baso # (Auto) Immature Gran % Nucleated RBC % Immature Gran # Nucleated RBCs # Sodium Potassium Chloride Carbon Dioxide Anion Gap BUN Creatinine GFR Calculation BUN/Creatinine Ratio Glucose POC Glucose 174 H 172 H 200 H Calculated Osmolality Calcium Magnesium 08/03/16 08/03/16 08/03/16 04:25 04:25 04:25 WBC 4.4 RBC 3.61 L Hgb 9.2 L Hct 29.7 L MCV 82.3 L MCH 26 L MCHC 31.0 L RDW 14.9 Plt Count 249 MPV 9.9 Neut % (Auto) 56.2 Lymph % (Auto) 31.8 [place] % (Auto) 9.5 Eos % (Auto) 1.8 Baso % (Auto) 0.2 Neut # (Auto) 2.5 Lymph # (Auto) 1.4 [place] # (Auto) 0.4 Eos # (Auto) 0.1 Baso # (Auto) 0.0 Immature Gran % 0.5 Nucleated RBC % 0.0 Immature Gran # 0.02 Nucleated RBCs # 0.00 Sodium 141 Potassium 3.7 Chloride 102 Carbon Dioxide 30 Anion Gap 12.7 BUN 20 H Creatinine 1.40 H GFR Calculation 71 BUN/Creatinine Ratio 14.00 Glucose 128 H POC Glucose Calculated Osmolality 285.3 Calcium 7.8 L Magnesium 2.1
[2016-08-03] MEDS ORDERED: POTASSIUM CHLORIDE RIDER 10 MEQ in PREMIX 1 EACH IV PRN (10:16)
[2016-08-03] MEDS ORDERED: diphenhydrAMINE CAP 25 MG CAPSULE PO ONE (10:16)
[2016-08-03] MEDS ORDERED: DIAZEPAM 5 MG TABLET PO ONE (10:16)
[2016-08-03] MEDS ORDERED: MAGNESIUM SULF RIDER 2 GM in PREMIX 1 EACH IV PRN (10:16)
--- NOTE | 2016-08-03 10:19 | Event Note ---
Mr. Marcial had wound care clinic appointment today that he was missing disease in the hospital. I discussed his anatomy with Dr. Rickey Guerin. was following him , and he agrees that standing is critical proximal right anterior tibial lesion would be helpful for wound healing, as his transmetatarsal amputation does not completely healed in over a year and a half. He is familiar with the procedure as we did a heart catheterization about a month ago without complication. That procedure was done from the right groin at this time will use the left groin. I discussed with the patient the risks and benefits of peripheral angiography and intervention including but not limited to: , stroke, heart attack, vascular damage, reaction to medicine or dye, bleeding requiring blood transfusion, failure of the procedure, and the possible need for planned or emergency surgery. I have answered all the patient's questions regarding the procedure, and the patient is agreeable to proceed.
[2016-08-03] MEDS ORDERED: LIDOCAINE 1% 20 ML VIAL ONE (12:59)
[2016-08-03] MEDS ORDERED: MIDAZOLAM 2 MG/2 ML VIAL ONE (13:31)
[2016-08-03] MEDS ORDERED: HYDROmorphone 2 MG/1 ML VIAL ONE (13:31)
[2016-08-03] MEDS ORDERED: HEPARIN 5,000 UNIT/1 ML VIAL ONE ×2 (13:32→14:02)
[2016-08-03] MEDS ORDERED: CLOPIDOGREL 300 MG TABLET ONE (14:38)
[2016-08-03] MEDS ORDERED: HYDROmorphone 2 MG/1 ML VIAL IV PRN (14:50)
--- NOTE | 2016-08-03 15:02 | Cardiology Operative Report ---
Date of Procedure:: 08/03/16 Post-op diagnosis: same Procedure: Procedure performed: 1. Right superficial femoral angiogram to visualize right anterior tibial artery (known critical disease) 2. Status post primary stenting of proximal right anterior tibia with drug- eluting stent (3.0 x 15 Xience) 3. Left femoral arteriotomy closed with Angio-Seal device Brief clinical summary: Mr. Marcial is a 76-year-old with a transmetatarsal irritation on the right January 2015 which is not completely healed with some small ulcers. Heart catheterization last month and that he had critical proximal anterior tibial disease he also was admitted with heart failure. Description of procedure: After obtaining informed consent the patient to the [place] Machine Operator of the left groin was prepped and draped in usual sterile fashion. Next a short 6 [place] sheath was placed in the left femoral artery using modified center technique after the patient received IV sedation requested. Next a JOSE catheter was advanced and used to manipulate a angle Glidewire stiff into the SFA with only modest difficulty. Next the sheath was changed out for a 6 [place] destination 65 cm sheath which was advanced to the mid SFA. Angiogram was performed again demonstrating the critical discrete proximal right anterior tibial disease. The patient had been given 5000 of heparin which achieved a therapeutic ACT just over 200. I gave him an additional 500 units of heparin after this but follow-up ACT was the 180s were given additional 1000 heparin. 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 Next a command wire was advanced across the anterior tibial lesion with modest difficulty and advanced distally. Next a 3.0 x 15 [place] stent was advanced across the area of disease and was deployed at above nominal pressures. There was still residual 30% stenosis, and so without moving the balloon I dilated up to just above rated burst pressure which achieved a good angiographic result as the vessel appeared to be well sized and the stent (dilated to 3.36 mm) with 20 % residual stenosis. The patient tolerated without complication. The sheath was pulled back and changed out for the short 6 [place] sheath. Angiography showed that it was inserted in the left common femoral artery. Hemostasis was obtained with the Enseal device with no residual bleeding. Superficial femoral angiogram of the popliteal and anterior tibial artery: Angiogram again showed that there was no disease other than a very discrete 95% proximal anterior tibial artery stenosis. There was good three-vessel runoff with perhaps minimal delay in the anterior tibial artery. Impression: 1. Discrete critical proximal right anterior tibial artery stenosis of 95% 2. Primary stenting of proximal right anterior tibial artery with drug-eluting stent (3.0 x 15) dilated to 3.36 mm with good result (20% residual stenosis) Recommendation discussion: I believe we achieved very good result with regard to stenting Mr. graff proximal anterior tibial lesion. He will need to continue on aspirin and Plavix. He to avoid squatting strain or lifting for the next week. Hopefully this will help his amputation site he will. He has nonhealing site for over a year and a half, and has been followed closely in the wound center. I discussed his procedure prior with Dr. Rickey Borjas who follows him. Anesthesia: minimal conscious sedation Surgeon / Physician: Dick Weiss Field Marketing Director: other Estimated blood loss: minimal Specimens: none sent Condition: stable Disposition: floor
--- NOTE | 2016-08-03 15:54 | Event Note ---
Patient's urine output scant today. Approximately 250ml very dark colored urine noted throughout the day's output. His weight is down significantly since admission and he has diuresed well thoughout the hospital stay. Initially , thought he may have been volume depleted. Chest x-ray from August 01, 2016 reveals pulmonary edema with proBNP is greater than 2000. Chest x-ray has been ordered for in the morning as well as repeat labs including a proBNP. However, I did order a bladder scan and noted was 800 mL of urine. I have asked for Richard catheter be inserted. No prior history noted of BPH nor is he taking BPH medications.
[2016-08-03 17:00] LABS: Apearance,Urine CLOUDY (Clear); Bacteria,Urine Few /HPF (Few); Bilirubin,Urine Negative (Negative); Blood, Urine Moderate mg/dL (Negative); Glucose,Urine (UA) Negative (Negative); Ketones,Urine Negative (Negative); Nitrite,Urine Positive (Negative); Protein,Urine 100 MG/DL; RBC,Urine 39 /HPF (0-4); Urine Color Amber (Yellow); Urine Specific Gravity 1.017 (1.001-1.035); Urine Urobilinogen < 2.0 EU/DL (0.2-1.0); WBC,Urine 468 /HPF (0-6)
[2016-08-04] MEDS: ALBUTEROL/IPRATROPIUM 3 ML NEB RESP TX SCH ×5 (03:00→20:41)
[2016-08-04 05:21] LABS: Basophils % 0.2 % (0.0-0.8); Eosinophils # 0.1 10*3/uL (0.0-0.87); Eosinophils % 1.3 % (0.00-10.9); Hematocrit 30.3 VOL% (42.0-52.0); Immature Granulocytes % 0.5 %; Immature Granulocytes Absolute 0.03 #; Lymphocytes # 1.2 10*3/uL (1.4-4.0); Lymphocytes % 20.9 % (21.2-54.2); Mean Corpuscular HGB Conc 29.7 GM/DL (32-36); Mean Corpuscular Hemoglobin 25 PG (27-34); Mean Corpuscular Volume 85.4 FL (87-102); Mean Platelet Volume 10.3 FL (9.6-12.0); Monocytes # 0.4 10*3/uL (0.11-0.8); Monocytes % 7.4 % (1.7-12.7); Neutrophils # 3.9 10*3/uL (1.4-7.4); Neutrophils % 69.7 % (38.7-73.9); Platelet Count 212 T/CUMM (130-400); Red Blood Count 3.55 MC/CUMM (3.8-5.5); Red Cell Distribution Width 15.1 % (9.3-17.3); White Blood Count 5.5 T/CUMM (4-12)
[2016-08-04 05:54] LABS: Calcium 7.8 MG/DL (8.5-10.1); Magnesium 2.2 MG/DL (1.8-2.4); Osmolality,Calculated 291.1 MOS/KG (273-304); Potassium 4.6 MMOL/L (3.5-5.1)
[2016-08-04 05:55] LABS: Eosinophils 1 % (0-10); Lymphocytes 20 % (20-55); Nucleated Red Blood Cells 1 (0-5); Segmented Neutrophils 73 % (50-85); Total Cells Counted 100
[2016-08-04 05:56] LABS: Hypochromasia 1+; Platelet Estimate Normal
--- NOTE | 2016-08-04 08:09 | XRay Report ---
XR chest 2V Indication: SOB Comparison: Chest x-ray dated August 01, 2016 Technique: Frontal and lateral views of the chest Findings: Continued mild cardiomegaly. Interval progressed bibasilar atelectasis/consolidation and small bilateral pleural fluid. Osseous and surrounding soft tissue structures appear grossly unchanged. IMPRESSION: As above. PROCEDURE INTERPRETED AT [facility] DEPARTMENT OF RADIOLOGY Final Report Signed by: Dr French Otero
[2016-08-04] MEDS: CLOPIDOGREL 75 MG TABLET PO SCH (08:17)
[2016-08-04] MEDS: MAGNESIUM OXIDE 400 MG TABLET PO SCH ×2 (08:17→20:55)
[2016-08-04] MEDS: LOSARTAN 25 MG TABLET PO SCH (08:17)
[2016-08-04] MEDS: ATORVASTATIN 40 MG TABLET PO SCH (08:17)
[2016-08-04] MEDS: PANTOPRAZOLE 40 MG TABLET PO SCH (08:17)
[2016-08-04] MEDS: ASPIRIN EC 81 MG TABLET PO SCH (08:17)
[2016-08-04] MEDS: POTASSIUM CHLORIDE 20 MEQ TABLET PO SCH ×3 (08:17→20:55)
[2016-08-04] MEDS: CARVEDILOL 12.5 MG TABLET PO SCH ×2 (08:17→20:56)
[2016-08-04] MEDS: RANOLAZINE 500 MG TABLET PO SCH ×2 (08:17→20:55)
[2016-08-04] MEDS ORDERED: CLOPIDOGREL 75 MG TABLET PO SCH (09:00)
[2016-08-04] MEDS: FUROSEMIDE 40 MG/4 ML VIAL IV SCH (09:25)
--- NOTE | 2016-08-04 10:05 | Cardiology Progress Note ---
<Dejah Cm E - Last Filed: 08/04/16 10:32> Assessment and Plan - Time spent with patient Time spent with patient: Greater than 30 minutes (1) Ischemic cardiomyopathy Status: Chronic Assessment and plan: SEE PLAN OF CARE LISTED BELOW Current Visit: Yes (2) Acute renal insufficiency Status: Acute Assessment and plan: SEE PLAN OF CARE LISTED BELOW Current Visit: Yes (3) UTI (urinary tract infection) Status: Acute Assessment and plan: SEE PLAN OF CARE LISTED BELOW Current Visit: Yes (4) CAP (community acquired pneumonia) Status: Acute Assessment and plan: SEE PLAN OF CARE LISTED BELOW Current Visit: Yes (5) Dyslipidemia Status: Chronic Assessment and plan: SEE PLAN OF CARE LISTED BELOW Current Visit: Yes (6) Insulin-requiring or dependent type II diabetes mellitus Status: Chronic Assessment and plan: SEE PLAN OF CARE LISTED BELOW Current Visit: No (7) Peripheral edema Status: Acute Assessment and plan: SEE PLAN OF CARE LISTED BELOW Current Visit: No (8) Hypertension Status: Chronic Assessment and plan: SEE PLAN OF CARE LISTED BELOW Current Visit: No (9) Congestive heart failure Status: Acute Assessment and plan: SEE PLAN OF CARE LISTED BELOW Current Visit: No Qualifiers: Congestive heart failure type: systolic Congestive heart failure chronicity : acute on chronic Qualified Code(s): I50.23 - Acute on chronic systolic ( congestive) heart failure (10) Anemia Status: Chronic Assessment and plan: SEE PLAN OF CARE LISTED BELOW Current Visit: No (11) CAD (coronary artery disease) Status: Chronic Assessment and plan: SEE PLAN OF CARE LISTED BELOW Current Visit: No Qualifiers: Coronary Disease-Associated Artery/Lesion type: [place] artery (12) Osteomyelitis Status: Chronic Assessment and plan: SEE PLAN OF CARE LISTED BELOW Current Visit: No Qualifiers: Osteomyelitis location: foot Laterality: right (13) S/P PCI LAD with OLIVIA Status: Chronic Assessment and plan: SEE PLAN OF CARE LISTED BELOW Current Visit: No (14) PVD (peripheral vascular disease) Status: Chronic Assessment and plan: SEE PLAN OF CARE LISTED BELOW Current Visit: No Cardiology - PN: Subj Interval history: FERRY ENGINEER: DR. PEREZ SUMMARY: Mr. Marcial, 76BM, was admitted August 02, 2016 with complaints of worsening shortness of breath and atypical chest discomfort. History of known coronary artery disease with most recent cardiac catheterization July 13, 2016 revealing patent stents, EF 35-40%. Status post PCI to the LAD at rest 2016. History of moderate mitral regurgitation, PAP 53 mmHg. He was diagnosed for acute on chronic congestive heart failure secondary to severely depressed LVEF ( EF 35%), [place] Heart Association Classification III. AUGUST 04, 2016: History of peripheral vascular disease, now status post stenting of the proximal right anterior tibial yesterday in an effort to improve poor wound healing of the right lower extremity. Overnight, patient had decreased urine output with inability to void. Bladder scan revealed 800 mL of urine in the bladder. Richard catheter was attempted but eventually required coud catheter. UA reveals UTI. Gram-positive cocci on initial 24 hour culture. Chest x-ray this morning reveals interval progressive by basilar atelectasis/ consolidation and small bilateral pleural fluid. According to his daily weights , patient has diuresed 7 kg since admission. Creatinine initially 1.3 then 1.4 yesterday. This morning creatinine is 1.7 after receiving dye load. Patient may benefit from swing bed for treatment of the UTI, CHF and possible CAP, wound management. I will ask physical therapy to assess and make evaluations. Will ask case management to evaluate as well. Patient is agreeable and would like to go to the [facility] if possible. Left groin soft, free of hematoma or bruit AASSESSMENT/PLAN: 1. PVD - S/P stent to right lower extremity August 03, 2016. Continue aspirin and Plavix daily 2. POOR WOUND HEALING RIGHT LOWER EXTREMITY -hopefully, now that he has been revascularized, this will improve wound healing. 3. ACUTE ON CHRONIC CHF, SECONDARY TO REDUCED LVED (EF 35%), NYHA CLASS III - continue diuresis, daily weight and I&Os. 4. HYPERTENSION -adequately controlled. Tolerating beta-imelda, losartan. We will hold losartan this morning since his creatinine did increase overnight. Will adjust antihypertensives off of losartan. 5. DYSLIPIDEMIA -continue lipid-lowering agent 6. KNOWN CAD -continue aspirin and Plavix. 7. POSSIBLE CAP -will start Levaquin IV. 8. ACUTE RENAL INSUFFICIENCY, STAGE II -continue to monitor closely. Holding ARB 9. ICM -continue current plan of care 10. ATYPICAL CHEST PAIN -continue current plan of care 11. ANEMIA -stable 12. DEBILITATED STATE -requesting evaluation for swing bed 13. UTI -start Levaquin and await final results of culture and sensitivity. 14. RLE EDEMA - although he had stenting, edema of right leg greater than left, will order venous US to rule out DVT. Exam (Progress Note) - Constitutional Vitals: Period Temp Pulse Resp BP Sys/Zapien Pulse Ox Last 24 Hr 97.2 F-98.1 F 61-77 12-100 113-131/67-82 84-100 Exam: General: [Appears well with no apparent distress.] [Pleasant and cooperative. ] [Appears comfortable.] HEENT: [Bilateral arcus noted. Normocephalic, atraumatic. Mucous membranes moist. No jaundice noted. Conjunctiva moist and clear, sclerae anicteric] Neck: No JVD/HJR, no thyromegaly or lymphadenopathy noted. No carotid bruit appreciated Cardiac: [Regular rate and rhythm.] [No murmur rub or gallop.] Lungs: [Clear to auscultation without accessory muscle use to assist the respiratory pattern.] Using oxygen intermittently. Abdomen: Soft, bowel sounds normoactive. Nontender and nondistended. No abdominal bruit or thrill noted. No masses noted. Musculoskeletal: No fluid collection. Decreased range of motion is noted. Extremities: Left groin soft, free of hematoma or bruit. No clubbing, cyanosis noted. [1+ brawny edema right lower extremity. Upper extremity pulses 2+. Difficult to palpate lower extremity pulses. Right lower extremity wrapped with bandage. Capillary refill less than 3 seconds. Skin: Other than right lower extremity poor wound healing, no other unusual lesions or rashes. Neuro: Awake, alert and oriented 3. Moves all extremities well without hemiparesis or paralysis. No essential tremor is appreciated. Result/EKG - Labs CBC & BMP: 08/04/16 04:29 08/04/16 04:29 Lab Results: I have reviewed the past 24 hour labs Labs: Laboratory Results - last 24 hr 08/03/16 08/04/16 08/04/16 16:15 04:29 04:29 WBC 5.5 RBC 3.55 L Hgb 9.0 L Hct 30.3 L MCV 85.4 L MCH 25 L MCHC 29.7 L RDW 15.1 Plt Count 212 MPV 10.3 Neut % (Auto) 69.7 Lymph % (Auto) 20.9 L [place] % (Auto) 7.4 Eos % (Auto) 1.3 Baso % (Auto) 0.2 Neut # (Auto) 3.9 Lymph # (Auto) 1.2 L [place] # (Auto) 0.4 Eos # (Auto) 0.1 Baso # (Auto) 0.0 Total Counted 100 Immature Gran % 0.5 Nucleated RBC % 0.0 Immature Gran # 0.03 Segmented Neutrophils 73 Lymphocytes 20 Monocytes 6 Eosinophils 1 Nucleated RBCs 1 Nucleated RBCs # 0.00 Platelet Estimate Normal Hypochromasia 1+ Morphology Comment Sodium 142 Potassium 4.6 Chloride 104 Carbon Dioxide 30 Anion Gap 12.6 BUN 23 H Creatinine 1.70 H GFR Calculation 55 BUN/Creatinine Ratio 13.00 Glucose 187 H Calculated Osmolality 291.1 Calcium 7.8 L Magnesium 2.2 Urine Color [place] Urine Appearance Cloudy Urine pH 5.0 Ur Specific [place] 1.017 Urine Protein 100 Urine Glucose (UA) Negative Urine Ketones Negative Urine Blood Moderate Urine Nitrate Positive H Urine Bilirubin Negative Urine Urobilinogen < 2.0 H Urine Leukocytes Large H Urine RBC 39 Urine WBC 468 Urine WBC Clumps Many Urine Bacteria Few Ur Culture Indicated? Results to follow - Diagnostic Findings Procedure: Chest x-ray: report reviewed by ny - EKG EKG results: interpreted by ny EKG shows: sinus rhythm <Dick Perez - Last Filed: 08/04/16 13:10> Assessment and Plan (1) CHF (congestive heart failure) Status: Acute Current Visit: Yes (2) Atypical chest pain Status: Chronic Current Visit: Yes (3) Hypertension Status: Chronic Current Visit: No Exam (Progress Note) - Constitutional Vitals: Period Temp Pulse Resp BP Sys/Zapien Pulse Ox Last 24 Hr 97.2 F-98.1 F 61-76 12-100 113-131/67-82 84-100 Result/EKG - Labs CBC & BMP: 08/04/16 04:29 08/04/16 04:29 Labs: Laboratory Results - last 24 hr 08/03/16 08/04/16 08/04/16 16:15 04:29 04:29 WBC 5.5 RBC 3.55 L Hgb 9.0 L Hct 30.3 L MCV 85.4 L MCH 25 L MCHC 29.7 L RDW 15.1 Plt Count 212 MPV 10.3 Neut % (Auto) 69.7 Lymph % (Auto) 20.9 L [place] % (Auto) 7.4 Eos % (Auto) 1.3 Baso % (Auto) 0.2 Neut # (Auto) 3.9 Lymph # (Auto) 1.2 L [place] # (Auto) 0.4 Eos # (Auto) 0.1 Baso # (Auto) 0.0 Total Counted 100 Immature Gran % 0.5 Nucleated RBC % 0.0 Immature Gran # 0.03 Segmented Neutrophils 73 Lymphocytes 20 Monocytes 6 Eosinophils 1 Nucleated RBCs 1 Nucleated RBCs # 0.00 Platelet Estimate Normal Hypochromasia 1+ Morphology Comment Sodium 142 Potassium 4.6 Chloride 104 Carbon Dioxide 30 Anion Gap 12.6 BUN 23 H Creatinine 1.70 H GFR Calculation 55 BUN/Creatinine Ratio 13.00 Glucose 187 H Calculated Osmolality 291.1 Calcium 7.8 L Magnesium 2.2 Urine Color [place] Urine Appearance Cloudy Urine pH 5.0 Ur Specific [place] 1.017 Urine Protein 100 Urine Glucose (UA) Negative Urine Ketones Negative Urine Blood Moderate Urine Nitrate Positive H Urine Bilirubin Negative Urine Urobilinogen < 2.0 H Urine Leukocytes Large H Urine RBC 39 Urine WBC 468 Urine WBC Clumps Many Urine Bacteria Few Ur Culture Indicated? Results to follow
--- NOTE | 2016-08-04 11:46 | Ultrasound Report ---
Exam: Right lower extremity venous Doppler/duplex ultrasound Comparison: 02/16/2015 Clinical history: Right lower extremity edema Technique: Duplex scan of the right lower extremity veins using th B- mode/grayscale imaging and Dopplers spectral analysis and color flow. Findings: There is normal compression and augmentation of the right common femoral, superficial femoral and popliteal veins. The proximal right greater saphenous veins appear to be patent. Major venous structures of the right lower extremity demonstrating normal course and caliber with normal color-flow study and spectral analysis. Impression: No evidence to suggest deep venous thrombosis within the right lower extremity. Right femoral lymph nodes identified with largest node measuring 13 mm in length. Ultrasound images were captured and stored. PROCEDURE INTERPRETED AT [facility] DEPARTMENT OF RADIOLOGY Final Report Signed by: Dr. Jocelyn Rossi
[2016-08-04] MEDS: SODIUM CHLORIDE 0.45% 1,000 ML IV SCH (12:01)
[2016-08-04] MEDS: LEVOFLOXACIN INJ 500 MG in PREMIX 1 EACH IV SCH (12:04)
[2016-08-05] MEDS: ALBUTEROL/IPRATROPIUM 3 ML NEB RESP TX SCH ×6 (00:40→19:15)
[2016-08-05] MEDS: ONDANSETRON 4 MG/2 ML VIAL IV PRN ×2 (04:15→14:26)
[2016-08-05 05:25] LABS: Basophils % 0.2 % (0.0-0.8); Eosinophils # 0.1 10*3/uL (0.0-0.87); Eosinophils % 1.2 % (0.00-10.9); Hematocrit 28.7 VOL% (42.0-52.0); Hemoglobin 8.9 GM/DL (14.0-18.0); Immature Granulocytes % 0.4 %; Immature Granulocytes Absolute 0.02 #; Lymphocytes # 1.6 10*3/uL (1.4-4.0); Lymphocytes % 28.3 % (21.2-54.2); Mean Corpuscular Hemoglobin 26 PG (27-34); Mean Corpuscular Volume 83.9 FL (87-102); Mean Platelet Volume 10.5 FL (9.6-12.0); Monocytes # 0.5 10*3/uL (0.11-0.8); Monocytes % 9.3 % (1.7-12.7); Neutrophils # 3.4 10*3/uL (1.4-7.4); Neutrophils % 60.6 % (38.7-73.9); Platelet Count 204 T/CUMM (130-400); Red Blood Count 3.42 MC/CUMM (3.8-5.5); Red Cell Distribution Width 15.6 % (9.3-17.3); White Blood Count 5.6 T/CUMM (4-12)
[2016-08-05 06:04] LABS: Calcium 7.7 MG/DL (8.5-10.1); Magnesium 2.3 MG/DL (1.8-2.4); Osmolality,Calculated 285.5 MOS/KG (273-304)
--- NOTE | 2016-08-05 08:05 | Cardiology Progress Note ---
Assessment and Plan (1) CHF (congestive heart failure) Status: Acute Assessment and plan: 1. Mr. Marcial has acute on chronic systolic heart failure (previous EF 40%), with resolved atypical chest discomfort and was ruled out for myocardial infarction. 2. Modest drop in hematocrit, without overt bleeding 3. Hemodynamically stable with reasonable blood pressure control 4. Status post anterior [facility] December 2015 when he had EF around 20% , and had stenting of his proximal to high mid LAD, confirmed to be widely patent June 2016 here with nonsignificant CAD. 5. 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 It has had some ulceration, and the amputation site is not healed yet. I catheterization last month an angiogram showed right lower extremity he had a critical discrete 99% proximal right anterior tibial stenosis. His surgery was done by Dr. Vinay Shipley, and he is followed by Dr. Rickey Borjas in the wound care clinic (missed his appointment today). I discussed with him if revascularization will be of help with regard to healing his amputation site. 6. High intensity statin and dual antiplatelet therapy is recommended if tolerated. 7. We will continue to follow with you. August 05, 2016: 1. Mr. Marcial is hemodynamically stable and has no worrisome symptoms, but still has his persistent right lower extremity edema from likely venous stasis disease on top of his PAD 2. Status post stenting of his critical discrete right anterior tibial artery stenosis August 03 with good angiographic result; critical limb ischemia due to nonhealing ulcers after transmetatarsal amputation January 2015 3. Creatinine is elevated just over 2 likely due to FARRA[place]; I expected to improve with gentle hydration given that was not a large dye load given. 4. Slight drop in hematocrit; continue baby aspirin and Plavix 5. UTI on antibiotics with clearing urine; discontinue Richard catheter Current Visit: Yes (2) Atypical chest pain Status: Chronic Current Visit: Yes (3) Hypertension Status: Chronic Current Visit: No (4) Critical lower limb ischemia Status: Acute Current Visit: Yes Cardiology - PN: Subj Interval history: Mr. Marcial feels "a little bad", reports he had some chest pain during the night (common occurrence for him). He says he thinks it may be indigestion. Is not having shortness of breath. He still has some leg swelling but is trying to elevate his right leg with 2 pillows in the bed. He is not having dizziness or palpitations. He his urine is still dark but is definitely clearing up. Exam (Progress Note) - Constitutional Vitals: Period Temp Pulse Resp BP Sys/Zapien Pulse Ox Last 24 Hr 18 F-98.5 F 68-116 18-20 103-134/55-82 93-100 General appearance: normal weight, no acute distress - Head Head exam: Present: normal inspection, normocephalic, atraumatic - Respiratory Respiratory exam: Present: clear to auscultation bilaterally. Absent: stridor, wheezes - Cardiovascular Cardiovascular exam: Present: regular rate and rhythm. Absent: rubs, systolic murmur - GI/Abdominal GI/Abdominal exam: Present: soft. Absent: tenderness - Extremities Exam Extremities exam: Present: edema, other (Bandages right foot/no odor) - Neurological Exam Neurological exam: Present: alert, oriented X3 Result/EKG - Labs CBC & BMP: 08/05/16 04:55 08/05/16 04:55 Labs: Laboratory Results - last 24 hr 08/05/16 08/05/16 04:55 04:55 WBC 5.6 RBC 3.42 L Hgb 8.9 L Hct 28.7 L MCV 83.9 L MCH 26 L MCHC 31.0 L RDW 15.6 Plt Count 204 MPV 10.5 Neut % (Auto) 60.6 Lymph % (Auto) 28.3 [place] % (Auto) 9.3 Eos % (Auto) 1.2 Baso % (Auto) 0.2 Neut # (Auto) 3.4 Lymph # (Auto) 1.6 [place] # (Auto) 0.5 Eos # (Auto) 0.1 Baso # (Auto) 0.0 Immature Gran % 0.4 Nucleated RBC % 0.0 Immature Gran # 0.02 Nucleated RBCs # 0.00 Sodium 139 Potassium 5.0 Chloride 103 Carbon Dioxide 29 Anion Gap 12.0 BUN 28 H Creatinine 2.30 H GFR Calculation 38 BUN/Creatinine Ratio 12.00 Glucose 150 H Calculated Osmolality 285.5 Calcium 7.7 L Magnesium 2.3
[2016-08-05] MEDS: CARVEDILOL 25 MG TABLET PO SCH ×2 (10:00→21:49)
[2016-08-05] MEDS: MAGNESIUM OXIDE 400 MG TABLET PO SCH ×2 (10:00→21:49)
[2016-08-05] MEDS: RANOLAZINE 500 MG TABLET PO SCH ×2 (10:00→21:48)
[2016-08-05] MEDS: CLOPIDOGREL 75 MG TABLET PO SCH (10:00)
[2016-08-05] MEDS: ASPIRIN EC 81 MG TABLET PO SCH (10:00)
[2016-08-05] MEDS: PANTOPRAZOLE 40 MG TABLET PO SCH (10:00)
[2016-08-05] MEDS: ATORVASTATIN 40 MG TABLET PO SCH (10:00)
[2016-08-05] MEDS: SODIUM CHLORIDE 0.45% 1,000 ML IV SCH ×2 (10:01→21:54)
[2016-08-05] MEDS: POTASSIUM CHLORIDE 20 MEQ TABLET PO SCH ×3 (10:04→21:48)
[2016-08-05] MEDS: LEVOFLOXACIN INJ 500 MG in PREMIX 1 EACH IV SCH (11:40)
[2016-08-06] MEDS: ALBUTEROL/IPRATROPIUM 3 ML NEB RESP TX SCH ×6 (00:13→19:56)
[2016-08-06] MEDS: SODIUM CHLORIDE 0.45% 1,000 ML IV SCH ×2 (05:14→20:33)
[2016-08-06 06:15] LABS: Basophils % 0.2 % (0.0-0.8); Eosinophils % 0.4 % (0.00-10.9); Hematocrit 30.8 VOL% (42.0-52.0); Hemoglobin 9.5 GM/DL (14.0-18.0); Immature Granulocytes % 0.4 %; Immature Granulocytes Absolute 0.02 #; Lymphocytes # 1.3 10*3/uL (1.4-4.0); Mean Corpuscular HGB Conc 30.8 GM/DL (32-36); Mean Corpuscular Hemoglobin 26 PG (27-34); Mean Platelet Volume 10.7 FL (9.6-12.0); Monocytes # 0.5 10*3/uL (0.11-0.8); Monocytes % 8.3 % (1.7-12.7); NRBC # 0.02 10*3/uL; Neutrophils # 3.9 10*3/uL (1.4-7.4); Neutrophils % 68.7 % (38.7-73.9); Platelet Count 227 T/CUMM (130-400); Red Blood Count 3.71 MC/CUMM (3.8-5.5); Red Cell Distribution Width 15.9 % (9.3-17.3); White Blood Count 5.7 T/CUMM (4-12)
[2016-08-06 06:46] LABS: Calcium 7.8 MG/DL (8.5-10.1); Magnesium 2.3 MG/DL (1.8-2.4)
[2016-08-06] MEDS: CLOPIDOGREL 75 MG TABLET PO SCH (09:18)
[2016-08-06] MEDS: PANTOPRAZOLE 40 MG TABLET PO SCH (09:18)
[2016-08-06] MEDS: CARVEDILOL 25 MG TABLET PO SCH ×2 (09:18→20:30)
[2016-08-06] MEDS: MAGNESIUM OXIDE 400 MG TABLET PO SCH ×2 (09:18→20:30)
[2016-08-06] MEDS: ATORVASTATIN 40 MG TABLET PO SCH (09:18)
[2016-08-06] MEDS: ASPIRIN EC 81 MG TABLET PO SCH (09:18)
[2016-08-06] MEDS: LEVOFLOXACIN INJ 250 MG in PREMIX 1 EACH IV SCH (10:43)
--- NOTE | 2016-08-06 12:03 | Cardiology Progress Note ---
<Dejah Cm E - Last Filed: 08/06/16 12:04> Assessment and Plan - Time spent with patient Time spent with patient: Greater than 30 minutes (1) Ischemic cardiomyopathy Status: Chronic Assessment and plan: SEE PLAN OF CARE LISTED BELOW Current Visit: Yes (2) Acute renal insufficiency Status: Acute Assessment and plan: SEE PLAN OF CARE LISTED BELOW Current Visit: Yes (3) UTI (urinary tract infection) Status: Acute Assessment and plan: SEE PLAN OF CARE LISTED BELOW Current Visit: Yes (4) CAP (community acquired pneumonia) Status: Acute Assessment and plan: SEE PLAN OF CARE LISTED BELOW Current Visit: Yes (5) Dyslipidemia Status: Chronic Assessment and plan: SEE PLAN OF CARE LISTED BELOW Current Visit: Yes (6) Insulin-requiring or dependent type II diabetes mellitus Status: Chronic Assessment and plan: SEE PLAN OF CARE LISTED BELOW Current Visit: No (7) Peripheral edema Status: Acute Assessment and plan: SEE PLAN OF CARE LISTED BELOW Current Visit: No (8) Hypertension Status: Chronic Assessment and plan: SEE PLAN OF CARE LISTED BELOW Current Visit: No (9) Congestive heart failure Status: Acute Assessment and plan: SEE PLAN OF CARE LISTED BELOW Current Visit: No Qualifiers: Congestive heart failure type: systolic Congestive heart failure chronicity : acute on chronic Qualified Code(s): I50.23 - Acute on chronic systolic ( congestive) heart failure (10) Anemia Status: Chronic Assessment and plan: SEE PLAN OF CARE LISTED BELOW Current Visit: No (11) CAD (coronary artery disease) Status: Chronic Assessment and plan: SEE PLAN OF CARE LISTED BELOW Current Visit: No Qualifiers: Coronary Disease-Associated Artery/Lesion type: [place] artery (12) Osteomyelitis Status: Chronic Assessment and plan: SEE PLAN OF CARE LISTED BELOW Current Visit: No Qualifiers: Osteomyelitis location: foot Laterality: right (13) S/P PCI LAD with OLIVIA Status: Chronic Assessment and plan: SEE PLAN OF CARE LISTED BELOW Current Visit: No (14) PVD (peripheral vascular disease) Status: Chronic Assessment and plan: SEE PLAN OF CARE LISTED BELOW Current Visit: No (15) Hyperkalemia Status: Acute Assessment and plan: see plan of care listed below Current Visit: Yes Cardiology - PN: Subj Interval history: SUMMARY: Mr. Marcial, 76BM, was admitted August 02, 2016 with complaints of worsening shortness of breath and atypical chest discomfort. History of known coronary artery disease with most recent cardiac catheterization July 13, 2016 revealing patent stents, EF 35-40%. Status post PCI to the LAD at rest 2015. History of moderate mitral regurgitation, PAP 53 mmHg. He was diagnosed for acute on chronic congestive heart failure secondary to severely depressed LVEF ( EF 35%), [place] Heart Association Classification III. 1. Mr. Marcial has acute on chronic systolic heart failure (previous EF 40%), with resolved atypical chest discomfort and was ruled out for myocardial infarction. 2. Modest drop in hematocrit, without overt bleeding 3. Hemodynamically stable with reasonable blood pressure control 4. Status post anterior [place] [facility] December 2015 when he had EF around 20% , and had stenting of his proximal to high mid LAD, confirmed to be widely patent June 2016 here with nonsignificant CAD. 5. 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 It has had some ulceration, and the amputation site is not healed yet. I catheterization last month an angiogram showed right lower extremity he had a critical discrete 99% proximal right anterior tibial stenosis. His surgery was done by Dr. Vinay Shipley, and he is followed by Dr. Rickey Borjas in the wound care clinic (missed his appointment today). I discussed with him if revascularization will be of help with regard to healing his amputation site. 6. High intensity statin and dual antiplatelet therapy is recommended if tolerated. 7. We will continue to follow with you. August 05, 2016: 1. Mr. Marcial is hemodynamically stable and has no worrisome symptoms, but still has his persistent right lower extremity edema from likely venous stasis disease on top of his PAD 2. Status post stenting of his critical discrete right anterior tibial artery stenosis August 03 with good angiographic result; critical limb ischemia due to nonhealing ulcers after transmetatarsal amputation January 2015 3. Creatinine is elevated just over 2 likely due to FARRAH; I expected to improve with gentle hydration given that was not a large dye load given. 4. Slight drop in hematocrit; continue baby aspirin and Plavix 5. UTI on antibiotics with clearing urine; discontinue Richard catheter AUGUST 06, 2016: Mr. Marcial is slow to improve. Overnight, creatinine has increased from 2.3-2.5. I suspect however, starting tomorrow we should see a decrease in his creatinine. This is most likely due to contrast-induced nephropathy. He received a small dye load during recent angiographic procedure. Also, potassium is noted to be 6.0. Will give a dose of Kayexalate and continue to follow closely. He is not on oral potassium replacement. He is constipated and we will add a laxative to his medication regimen this morning. Richard catheter was removed yesterday evening. He has not voided since it was removed nor does he have the urge to urinate. Bladder scan reveals a little over 300 mL urine. Received gentle IV hydration yesterday. We will give another another 500 ml fluid resuscitation slowly. If he cannot void soon, will replace catheter. Will discuss with Dr. Weiss possibly consulting urology if he is unable to void this afternoon. ASSESSMENT/PLAN: 1. PVD - S/P stent to right lower extremity August 03, 2016. Continue aspirin and Plavix daily 2. POOR WOUND HEALING RIGHT LOWER EXTREMITY - hopefully, now that he has been revascularized, this will improve wound healing. 3. ACUTE ON CHRONIC CHF, SECONDARY TO REDUCED LVED (EF 35%), NYHA CLASS III - at this point, his diuretics have been hold and gentle hydration occurred. 4. HYPERTENSION - adequately controlled. Tolerating beta-imelda, losartan. has been held due to worsened creatinine. 5. DYSLIPIDEMIA - continue lipid-lowering agent 6. KNOWN CAD - continue aspirin and Plavix. 7. POSSIBLE CAP - treating with Levaquin IV. 8. ACUTE RENAL INSUFFICIENCY, STAGE III - continue to monitor closely. Holding ARB 9. ICM - continue current plan of care 10. ATYPICAL CHEST PAIN - continue current plan of care 11. ANEMIA - stable 12. DEBILITATED STATE - will transfer to [facility] when his creatinine improves. 13. UTI - started Levaquin and await final results of culture and sensitivity. 14. RLE EDEMA - venous US negative for DVT. 15. CONSTIPATION - laxative ordered 16. HYPERKALEMIA - Kayexalate and close monitoring of labs. Exam (Progress Note) - Constitutional Vitals: Period Temp Pulse Resp BP Sys/Zapien Pulse Ox Last 24 Hr 96.4 F-97.7 F 62-72 14-18 98-133/54-76 92-100 Exam: General: [Appears well with no apparent distress.] [Pleasant and cooperative. ] [Appears comfortable.] HEENT: [Bilateral arcus noted. Normocephalic, atraumatic. Mucous membranes moist. No jaundice noted. Conjunctiva moist and clear, sclerae anicteric] Neck: No JVD/HJR, no thyromegaly or lymphadenopathy noted. No carotid bruit appreciated Cardiac: [Regular rate and rhythm.] [No murmur rub or gallop.] Lungs: [Clear to auscultation without accessory muscle use to assist the respiratory pattern.] Using oxygen intermittently. Abdomen: Soft, bowel sounds normoactive. Nontender and nondistended. No abdominal bruit or thrill noted. No masses noted. Musculoskeletal: No fluid collection. Decreased range of motion is noted. Extremities: Left groin soft, free of hematoma or bruit. No clubbing, cyanosis noted. [1+ brawny edema right lower extremity. Upper extremity pulses 2+. Difficult to palpate lower extremity pulses. Right lower extremity wrapped with bandage. Capillary refill less than 3 seconds. Skin: Other than right lower extremity poor wound healing, no other unusual lesions or rashes. Neuro: Awake, alert and oriented 3. Moves all extremities well without hemiparesis or paralysis. No essential tremor is appreciated. Result/EKG - Labs CBC & BMP: 08/06/16 04:28 08/06/16 04:28 Lab Results: I have reviewed the past 24 hour labs Labs: Laboratory Results - last 24 hr 08/06/16 08/06/16 04:28 04:28 WBC 5.7 RBC 3.71 L Hgb 9.5 L Hct 30.8 L MCV 83.0 L MCH 26 L MCHC 30.8 L RDW 15.9 Plt Count 227 MPV 10.7 Neut % (Auto) 68.7 Lymph % (Auto) 22.0 [place] % (Auto) 8.3 Eos % (Auto) 0.4 Baso % (Auto) 0.2 Neut # (Auto) 3.9 Lymph # (Auto) 1.3 L [place] # (Auto) 0.5 Eos # (Auto) 0.0 Baso # (Auto) 0.0 Immature Gran % 0.4 Nucleated RBC % 0.4 Immature Gran # 0.02 Nucleated RBCs # 0.02 Sodium 136 Potassium 6.0 H* D Chloride 101 Carbon Dioxide 28 Anion Gap 13.0 BUN 31 H Creatinine 2.50 H GFR Calculation 34 BUN/Creatinine Ratio 12.00 Glucose 161 H Calculated Osmolality 281.0 Calcium 7.8 L Magnesium 2.3 - Diagnostic Findings Procedure: Ultrasound: report reviewed by me (venous US RLE ) - EKG EKG results: interpreted by me EKG shows: sinus rhythm <Dick Weiss - Last Filed: 08/06/16 15:29> Assessment and Plan (1) CHF (congestive heart failure) Status: Acute Current Visit: Yes (2) Atypical chest pain Status: Chronic Current Visit: Yes (3) Hypertension Status: Chronic Current Visit: No (4) Critical lower limb ischemia Status: Acute Current Visit: Yes Exam (Progress Note) - Constitutional Vitals: Period Temp Pulse Resp BP Sys/Zapien Pulse Ox Last 24 Hr 96.4 F-97.7 F 62-72 14-18 98-133/54-76 92-100 Result/EKG - Labs CBC & BMP: 08/06/16 04:28 08/06/16 04:28 Labs: Laboratory Results - last 24 hr 08/06/16 08/06/16 04:28 04:28 WBC 5.7 RBC 3.71 L Hgb 9.5 L Hct 30.8 L MCV 83.0 L MCH 26 L MCHC 30.8 L RDW 15.9 Plt Count 227 MPV 10.7 Neut % (Auto) 68.7 Lymph % (Auto) 22.0 [place] % (Auto) 8.3 Eos % (Auto) 0.4 Baso % (Auto) 0.2 Neut # (Auto) 3.9 Lymph # (Auto) 1.3 L [place] # (Auto) 0.5 Eos # (Auto) 0.0 Baso # (Auto) 0.0 Immature Gran % 0.4 Nucleated RBC % 0.4 Immature Gran # 0.02 Nucleated RBCs # 0.02 Sodium 136 Potassium 6.0 H* D Chloride 101 Carbon Dioxide 28 Anion Gap 13.0 BUN 31 H Creatinine 2.50 H GFR Calculation 34 BUN/Creatinine Ratio 12.00 Glucose 161 H Calculated Osmolality 281.0 Calcium 7.8 L Magnesium 2.3
[2016-08-06] MEDS ORDERED: SODIUM POLYSTYRENE SULFATE 15 GM/60 ML BOTTLE PO ONE (12:19)
[2016-08-06] MEDS ORDERED: BISACODYL 5 MG TABLET PO ONE (12:22)
[2016-08-06] MEDS ORDERED: BISACODYL 10 MG SUPP RECTAL PRN (12:22)
--- NOTE | 2016-08-06 15:58 | Event Note ---
August 03, 2016, patient underwent angiogram with stenting of lower extremity performed by Dr. Weiss. Approximately 6 hours after the procedure, patient could not void. He did not have a sense of need to void. Bladder scan indicated approximately 800 mL of urine. Richard catheter was attempted but nurses met with resistance. Coude' catheter was then introduced with approximately 800 mL of dark yellow urine noted. Patient's catheter was discontinued at 3 PM August 05, 2016. Patient still had no desire nor ability to urinate around 10:30 AM this morning. Bladder scan revealed approximately 300 mL urine in bladder. He was given a 500 mL bolus normal saline and rescanned at 3 PM today. Bladder scan revealed approximately 700 mL urine. Again, patient has been unable to void. Discussed with Dr. Weiss. Urology will be consulted. There is no prior history of BPH to my knowledge. If patient is not seen by urology today, nurses have instructions to reintroduce the coud catheter this evening.
--- NOTE | 2016-08-06 17:55 | Urology Consultation ---
Assessment and Plan - Time spent with patient Time spent with patient: Less than 30 minutes (1) Urinary retention due to benign prostatic hyperplasia Status: Acute Assessment and plan: We will begin Flomax and perform intermittent cath. Current Visit: Yes History of Present Illness - Data of Consult Patient: new to practice Consult date: 08/06/16 Requesting Physician: Dick Weiss - Consult Narrative Reason for consult: Urinary retention History of present illness: Mr. Marcial is a 76 year old male who had chest pain and underwent a cardiac cath which was negative. He had a Richard catheter in and is developed retention and bladder scans have been done that show elevated residual. We will start Flomax and then perform intermittent cath. CC: Jina Lundy, DO - Home Medications and Allergies Home Medications: Home Medications Medication Instructions Recorded Confirmed Type Clopidogrel Bisulfate [Clopidogrel] 75 mg PO DAILY 02/07/16 08/01/16 History Pantoprazole Tab [Protonix Tab] 40 mg PO DAILY 02/07/16 08/01/16 History Acetaminophen Tab [Tylenol Tab] 325 mg PO Q4H PRN #0 tablet 02/12/16 08/01/16 Rx Aspirin EC Tab 81 mg PO DAILY tablet 02/12/16 08/01/16 Rx Atorvastatin [Lipitor] 40 mg PO DAILY #0 02/12/16 08/01/16 Rx Carvedilol [Coreg] 12.5 mg PO BID tablet 02/12/16 08/01/16 Rx HYDROcodone/ACETAMIN 10-325 [Hematite 1 tablet PO Q6H PRN #30 02/12/16 08/01/16 Rx 10-325] Skin Healing Oint (Aquaphor) 1 applic TOP PRN PRN #0 ointment 02/12/16 08/01/16 Rx [Aquaphor] Albuterol/Ipratropium Neb [Duoneb] 3 ml RESP TX RT Q4H 05/29/16 08/01/16 Rx Furosemide Tab [Lasix Tab] 80 mg PO BID #0 05/29/16 08/01/16 Rx Losartan [Cozaar] 25 mg PO DAILY tablet 05/29/16 08/01/16 Rx Potassium Chloride Cap/Tab [K Dur] 20 meq PO DAILY tablet 05/29/16 08/01/16 Rx Spironolactone [Aldactone] 25 mg PO BID tablet 05/29/16 08/01/16 Rx Ranolazine [Ranexa] 500 mg PO BID #60 tablet 07/15/16 08/01/16 Rx Nitroglycerin Sl Tab [Nitrostat] 0.4 mg SL Q5M PRN 08/01/16 08/01/16 History Allergies/Adverse Reactions: Allergies Allergy/AdvReac Type Severity Reaction Status Date / Time Sulfa (Sulfonamide Allergy HIVES Verified 08/01/16 14:58 Antibiotics) Exam - Constitutional Vitals: Period Temp Pulse Resp BP Sys/Zapien Pulse Ox Last 24 Hr 96.4 F-97.7 F 62-72 14-18 98-151/54-79 90-100 Results - Labs CBC & BMP: 08/06/16 04:28 08/06/16 04:28
[2016-08-07] MEDS: SODIUM CHLORIDE 0.45% 1,000 ML IV SCH (01:11)
[2016-08-07] MEDS: ALBUTEROL/IPRATROPIUM 3 ML NEB RESP TX SCH ×3 (02:11→07:36)
[2016-08-07 05:03] LABS: Basophils % 0.2 % (0.0-0.8); Eosinophils % 0.7 % (0.00-10.9); Hematocrit 29.1 VOL% (42.0-52.0); Hemoglobin 9.3 GM/DL (14.0-18.0); Immature Granulocytes % 0.4 %; Immature Granulocytes Absolute 0.02 #; Lymphocytes # 1.3 10*3/uL (1.4-4.0); Lymphocytes % 24.8 % (21.2-54.2); Mean Corpuscular Hemoglobin 26 PG (27-34); Mean Corpuscular Volume 81.5 FL (87-102); Mean Platelet Volume 10.5 FL (9.6-12.0); Monocytes # 0.5 10*3/uL (0.11-0.8); Monocytes % 8.3 % (1.7-12.7); NRBC # 0.02 10*3/uL; Neutrophils # 3.5 10*3/uL (1.4-7.4); Neutrophils % 65.6 % (38.7-73.9); Platelet Count 237 T/CUMM (130-400); Red Blood Count 3.57 MC/CUMM (3.8-5.5); Red Cell Distribution Width 15.7 % (9.3-17.3); White Blood Count 5.4 T/CUMM (4-12)
[2016-08-07 05:39] LABS: Calcium 7.9 MG/DL (8.5-10.1); Magnesium 2.4 MG/DL (1.8-2.4); Osmolality,Calculated 280.8 MOS/KG (273-304); Potassium 4.8 MMOL/L (3.5-5.1)
[2016-08-07 07:36] VITALS: BP 155/88
[2016-08-07] MEDS: CLOPIDOGREL 75 MG TABLET PO SCH (08:45)
[2016-08-07] MEDS: ASPIRIN EC 81 MG TABLET PO SCH (08:45)
[2016-08-07] MEDS: MAGNESIUM OXIDE 400 MG TABLET PO SCH (08:45)
[2016-08-07] MEDS: PANTOPRAZOLE 40 MG TABLET PO SCH (08:45)
[2016-08-07] MEDS: CARVEDILOL 25 MG TABLET PO SCH (08:45)
[2016-08-07] MEDS: ATORVASTATIN 40 MG TABLET PO SCH (08:45)
[2016-08-07] MEDS ORDERED: TAMSULOSIN 0.4 MG CAPSULE PO SCH (09:00)
--- NOTE | 2016-08-07 10:28 | Discharge Summary ---
Addendum entered and electronically signed by Dejah Cm NP 08/07/16 10: 37: Patient currently has an appointment to see Dr. Rickey Junior, Wednesday, july to evaluate his right lower leg wound. He has been instructed to keep this appointment. Original Note: <Dejah Cm - Last Filed: 08/07/16 10:14> Hospital Course - Hospital Course Hospital Course: HOSPICE SOCIAL WORKER: DR. PEREZ SUMMARY: Mr. Marcial, 76BM, was admitted August 02, 2016 with complaints of worsening shortness of breath and atypical chest discomfort. History of known coronary artery disease with most recent cardiac catheterization July 13, 2016 revealing patent stents, EF 35-40%. Status post PCI to the LAD at rest 2015. History of moderate mitral regurgitation, PAP 53 mmHg. He was diagnosed for acute on chronic congestive heart failure secondary to severely depressed LVEF ( EF 35%), [place] Heart Association Classification III. In an effort to improve blood flow to a poor and slow healing wound of the right lower extremity, August 03, 2016 patient underwent stenting of the proximal right anterior tibial performed by Dr. Perez. He was treated for pneumonia as well as acute on chronic congestive heart failure during this hospitalization. Post operatively, patient experienced contrast-induced nephropathy, urinary retention and UTI. Patient initially required indwelling catheter. Dr. Polo Dozier, urologist, was consulted. Flomax was initiated as well as orders for intermittent cathing. On arrival, patient's creatinine was 1.7, peaked at 2.5 (acute on chronic renal insufficiency peaked at stage III ) and this morning is decreasing at 2.4. Patient is significantly debilitated and can certainly benefit from continued strengthening, wound care treatment to the right lower extremity, and treatment of his urinary tract infection, monitoring of his renal insufficiency. Patient will be given a follow-up appointment with Dr. Perez in approximately 1 month. Discharge medications include the following: Acetaminophen tablet 325 mg 1 p.o. every 4 hours as needed pain Albuterol/ipratropium 3 mL respiratory treatment every 4 hours during this daytime hours Aspirin 81 mg orally daily Atorvastatin 40 mg orally each evening Carvedilol 25 mg orally twice daily Plavix 75 mg orally daily Hydrocodone acetaminophen 10-325 1 tablet every 4 hours as needed for pain Levaquin 250 mg 1 p.o. daily through August 13, 2016 Magnesium oxide 400 mg 1 p.o. twice daily Nitroglycerin 0.4 mg sublingual as needed for chest pain Pantoprazole 40 mm orally daily Flomax 0.4 mg orally daily Trazodone 50 mg orally each evening Lasix 40mg orally daily as needed for edema and/or weight grain >2 pounds overnight Ranexa 500mg orally BID Wound care per wound management protocol Intermittent urinary catheterization 3 times daily as needed Patient NOT on DEBO or ARB due to fear of worsening renal insufficiency - Time spent with patient Time with patient DS: Greater than 30 minutes Diagnosis - Discharge Diagnosis (1) Ischemic cardiomyopathy Status: Chronic (2) Acute renal insufficiency Status: Acute (3) UTI (urinary tract infection) Status: Acute (4) CAP (community acquired pneumonia) Status: Acute (5) Dyslipidemia Status: Chronic (6) Insulin-requiring or dependent type II diabetes mellitus Status: Chronic (7) Peripheral edema Status: Chronic (8) Hypertension Status: Chronic (9) Congestive heart failure Status: Resolved (10) Anemia Status: Chronic (11) CAD (coronary artery disease) Status: Chronic (12) Osteomyelitis Status: Chronic (13) S/P PCI LAD with OLIVIA Status: Chronic (14) PVD (peripheral vascular disease) Status: Chronic (15) Hyperkalemia Status: Resolved Specialty Discharge - Follow Up or Referrals Follow up with: Polo Dozier MD [Physician] - 09/07/16 1:45 pm Dick Perez MD [Physician] - 09/04/16 10:40 am () Discharge Plan - Discharge Data Condition at Discharge: Stable Discharge Diet: heart healthy Activity: as per physical therapy Weight Bearing at Discharge: other (per physical therapy) Driving: not until seen by doctor Contact your physician if you experience:: fever over 101, Difficulty voiding, Redness or swelling, Nausea/Vomiting, Shortness of breath, Bleeding, pain uncontrolled by pain medications - Discharge Medications New Magnesium Oxide 400 mg PO BID tablet Skin Healing Oint (Aquaphor) [Aquaphor] 1 applic TOP PRN PRN #0 applic PRN Reason: Dry Skin traZODone [Desyrel] 50 mg PO BEDTIME PRN #0 tablet PRN Reason: Insomnia Carvedilol [Coreg] 25 mg PO BID tablet Furosemide Tab [Lasix Tab] 40 mg PO DAILY #30 tablet Levofloxacin Tab [Levaquin Tab] 250 mg PO DAILY #6 tablet Tamsulosin [Flomax] 0.4 mg PO DAILY capsule Continue Clopidogrel Bisulfate [Clopidogrel] 75 mg PO DAILY Pantoprazole Tab [Protonix Tab] 40 mg PO DAILY Acetaminophen Tab [Tylenol Tab] 325 mg PO Q4H PRN #0 tablet PRN Reason: fever, headache/body aches Aspirin EC Tab 81 mg PO DAILY tablet Atorvastatin [Lipitor] 40 mg PO DAILY #0 HYDROcodone/ACETAMIN 10-325 [[place] 10-325] 1 tablet PO Q6H PRN #30 PRN Reason: Pain Albuterol/Ipratropium Neb [Duoneb] 3 ml RESP TX RT Q4H Ranolazine [Ranexa] 500 mg PO BID #60 tablet Nitroglycerin Sl Tab [Nitrostat] 0.4 mg SL Q5M PRN PRN Reason: Chest Pain Discontinued Carvedilol [Coreg] 12.5 mg PO BID tablet Skin Healing Oint (Aquaphor) [Aquaphor] 1 applic TOP PRN PRN #0 ointment PRN Reason: Dry Skin Furosemide Tab [Lasix Tab] 80 mg PO BID #0 Losartan [Cozaar] 25 mg PO DAILY tablet Potassium Chloride Cap/Tab [K Dur] 20 meq PO DAILY tablet Spironolactone [Aldactone] 25 mg PO BID tablet - Follow Up or Referral Follow Up: Polo Dozier MD [Physician] - 09/07/16 1:45 pm Dick Perez MD [Physician] - 09/04/16 10:40 am () - Forms/Instructions Additional Discharge Instructions: Daily weights. Exam - Constitutional Vitals: Period Temp Pulse Resp BP Sys/Zapien Pulse Ox Last 24 Hr 96.4 F-97.8 F 61-90 16-18 133-159/75-88 90-100 Exam: General: [Appears well with no apparent distress.] [Pleasant and cooperative. ] [Appears comfortable.] HEENT: [Bilateral arcus noted. Normocephalic, atraumatic. Mucous membranes moist. No jaundice noted. Conjunctiva moist and clear, sclerae anicteric] Neck: No JVD/HJR, no thyromegaly or lymphadenopathy noted. No carotid bruit appreciated Cardiac: [Regular rate and rhythm.] [No murmur rub or gallop.] Lungs: [Clear to auscultation without accessory muscle use to assist the respiratory pattern.] Using oxygen intermittently. Abdomen: Soft, bowel sounds normoactive. Nontender and nondistended. No abdominal bruit or thrill noted. No masses noted. Musculoskeletal: No fluid collection. Decreased range of motion is noted. Extremities: Left groin soft, free of hematoma or bruit. No clubbing, cyanosis noted. [Trace brawny edema right lower extremity. Upper extremity pulses 2+. Difficult to palpate lower extremity pulses. Right lower extremity wrapped with bandage. Capillary refill less than 3 seconds. Skin: Other than right lower extremity poor wound healing, no other unusual lesions or rashes. Neuro: Awake, alert and oriented 3. Moves all extremities well without hemiparesis or paralysis. No essential tremor is appreciated. Discharge Results Labs on day of discharge: Labs from last 24 hours 08/07/16 08/07/16 04:09 04:09 WBC 5.4 RBC 3.57 L Hgb 9.3 L Hct 29.1 L MCV 81.5 L MCH 26 L MCHC 32.0 RDW 15.7 Plt Count 237 MPV 10.5 Neut % (Auto) 65.6 Lymph % (Auto) 24.8 [place] % (Auto) 8.3 Eos % (Auto) 0.7 Baso % (Auto) 0.2 Neut # (Auto) 3.5 Lymph # (Auto) 1.3 L [place] # (Auto) 0.5 Eos # (Auto) 0.0 Baso # (Auto) 0.0 Immature Gran % 0.4 Nucleated RBC % 0.4 Immature Gran # 0.02 Nucleated RBCs # 0.02 Sodium 137 Potassium 4.8 Chloride 101 Carbon Dioxide 28 Anion Gap 12.8 BUN 30 H Creatinine 2.40 H GFR Calculation 36 BUN/Creatinine Ratio 12.00 Glucose 129 H Calculated Osmolality 280.8 Calcium 7.9 L Magnesium 2.4 - Imaging and Cardiology Cardiology Procedure: report reviewed by me Procedure: Chest x-ray: report reviewed by me DS: Provider Date of admission: 08/01/16 19:21 Primary care physician: . No PCP Attending physician on admission: Jina Lundy DO Consults: 08/02/16 00:04 Consult to Pastoral Services [CONS] Routine Comment: Pastoral Screen: Request Sheet Cutter Visit Pastoral Screen Source of Request: Patient 08/04/16 09:52 Consult to Physical Therapy [CONS] Routine Reason for Physical Therapy: Evaluate and Treat 08/04/16 11:12 Consult to Case Mgmt/Social Srvs [CONS] Routine Reason for Case Mgmt/Social Srvs: Swingbed/SNF/Care Home 08/06/16 15:56 Consult to Physician [CONS] Routine Comment: (Or on-call MD). Inability to void Consulting Provider: Polo Dozier Discharging clinician: Dejah Cm NP <Dick Perez - Last Filed: 08/07/16 10:56> Diagnosis - Discharge Diagnosis (1) CHF (congestive heart failure) Status: Acute (2) Atypical chest pain Status: Chronic (3) Hypertension Status: Chronic (4) Critical lower limb ischemia Status: Acute
[2016-08-07] MEDS: LEVOFLOXACIN INJ 250 MG in PREMIX 1 EACH IV SCH (11:17)
--- NOTE | 2016-10-05 10:00 | EKG Report ---
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
== END 2016-08-07 11:04 | disposition swing bed (61) | DRG 252 ==
LOC: N.ED 14:26 → N.EDINP 19:08 → N.TELES 19:23
PROVIDERS: ADMIT Internal Medicine Cardiovascular Disease; ATTEND Internal Medicine Cardiovascular Disease

== ENCOUNTER 2016-08-15 09:45 | Observation (INO) ==
[2016-08-15] MEDS ORDERED: MORPHINE 2 MG/1 ML SYRINGE IV PRN (10:02)
[2016-08-15] MEDS ORDERED: ONDANSETRON 4 MG/2 ML VIAL IV PRN ×2 (10:02→12:47)
--- NOTE | 2016-08-15 10:12 | Emergency Department Note ---
Sha Castellanos Brooke, am scribing for, and in the presence of, Piotr Martinez MD 10:05 . Michelle Castellanos James D, MD, personally performed the services described in this documentation, ascribed by Maddison Dalton in my presence, and it is both accurate and complete . Arrival - Arrival Chief Complaint: Chest Pain ED Nursing Triage Note: c/o episatric pain onset last night. pt had n/v. this am pt started having cp Mode of Arrival: Stretcher Limitations: No Limitations Source: Patient, EMS, RN Notes Reviewed Time Seen by Provider: 08/15/16 09:57 - History of Present Illness HPI Narrative: Patient is a 76 year old male brought into the ED by EMS with c/o chest pain that started last night. He is a poor historian. Patient says he got nauseated and then vomited and the chest pain started shortly after. When talking about his chest pain, he puts his hand over the left side of his chest. He says he did not have any epigastric pain prior to the vomiting or chest pain. He denies having any diaphoresis or shortness of breath. Patient has PMHx of CHF, CAD, HTN , ND, migraines, IDDM, pneumonia, hemorrhoids, GERD, right toe amputations(Dr. Shipley), osteoarthritis, and anemia. Patient's Wrapping Machine Helper is Dr. Petersen and his Primary Care Provider is Dr. Francis. He had an angiography done in June 2016. He is not a smoker. Allergies/Adverse Reactions: Allergies Allergy/AdvReac Type Severity Reaction Status Date / Time Sulfa (Sulfonamide Allergy HIVES Verified 08/01/16 14:58 Antibiotics) Home Medications: Home Medications Medication Instructions Recorded Confirmed Type Clopidogrel Bisulfate [Clopidogrel] 75 mg PO DAILY 02/07/16 08/15/16 History Pantoprazole Tab [Protonix Tab] 40 mg PO DAILY 02/07/16 08/15/16 History Aspirin EC Tab 81 mg PO DAILY tablet 02/12/16 08/15/16 Rx Atorvastatin [Lipitor] 40 mg PO DAILY #0 02/12/16 08/15/16 Rx HYDROcodone/ACETAMIN 10-325 [[place] 1 tablet PO Q6H PRN #30 02/12/16 08/15/16 Rx 10-325] Albuterol/Ipratropium Neb [Duoneb] 3 ml RESP TX RT Q4H 05/29/16 08/15/16 Rx Ranolazine [Ranexa] 500 mg PO BID #60 tablet 07/15/16 08/15/16 Rx Nitroglycerin Sl Tab [Nitrostat] 0.4 mg SL Q5M PRN 08/01/16 08/15/16 History Carvedilol [Coreg] 25 mg PO BID tablet 08/07/16 08/15/16 Rx Furosemide Tab [Lasix Tab] 40 mg PO DAILY #30 tablet 08/07/16 08/15/16 Rx Levofloxacin Tab [Levaquin Tab] 250 mg PO DAILY #6 tablet 08/07/16 08/15/16 Rx Magnesium Oxide 400 mg PO BID tablet 08/07/16 08/15/16 Rx Skin Healing Oint (Aquaphor) 1 applic TOP PRN PRN #0 applic 08/07/16 08/15/16 Rx [Aquaphor] Tamsulosin [Flomax] 0.4 mg PO DAILY capsule 08/07/16 08/15/16 Rx traZODone [Desyrel] 50 mg PO BEDTIME PRN #0 tablet 08/07/16 08/15/16 Rx Acetaminophen Tab [Tylenol Tab] 325 - 650 mg PO Q4H PRN 08/15/16 08/15/16 History Alum/Mag/Simeth Max Str Liquid 30 ml PO Q6H PRN 08/15/16 08/15/16 History [Mylanta Max Strength Liquid] Bisacodyl Supp [Dulcolax Supp] 10 mg RECTAL DAILY PRN 08/15/16 08/15/16 History Bisacodyl Tab [Dulcolax Tab] 10 mg PO DAILY 08/15/16 08/15/16 History Magnesium Hydroxide Susp [Milk of 30 ml PO BID PRN 08/15/16 08/15/16 History Magnesia] Nystatin Liquid [Mycostatin Oral 500,000 unit SWISH/SWAL QID 08/15/16 08/15/16 History Susp] Ondansetron Tab [Zofran Tab] 4 mg PO Q6H PRN 08/15/16 08/15/16 History Tramadol HCl [Tramadol Tab] 50 mg PO Q6H PRN 08/15/16 08/15/16 History Zaleplon 5 mg PO BEDTIME PRN 08/15/16 08/15/16 History guaiFENesin LIQUID [Robitussin] 10 ml PO Q4H PRN 08/15/16 08/15/16 History Review of System - Review of System 12 point system: reviewed and no additional remarkable complaints except as stated - Review of System Constitutional: Absent: diaphoresis, fever Respiratory: Absent: respiratory distress Cardiovascular: Present: chest pain Gastrointestinal: Present: nausea, vomiting Skin: Absent: rash Medical,Surgical,& Family Hx - Medical History Cardio: History of: CHF (EF 40% last month the cath), CAD (PCI of the LAD at [place] with diffuse small vessel disease and 417), Hypertension, [place], Cardiovascular Problems Psychological: No history of: Anxiety Disorders, Behavior Problems, Bipolar Disorder Neurology: History of: Migraine No history of: Brain Aneurysm, Cerebral Hemorrhage, Cerebrovascular Accident , Cerebral Palsy, Dementia, Seizures Endocrine: History of: Diabetes Mellitus (IDDM) No history of: Thyroid Disorder, Endocrine Problems Respiratory: History of: Pneumonia, Respiratory Problems (wears o2 at night) No history of: Obstructive Sleep Apnea, Pulmonary Embolism Renal: No history of: Renal (Kidney) Cancer, Dialysis, Renal Failure, Renal Problems Genitourinary: No history of: Bladder Problem, Kidney Stones, Prostate Problems, Recurring Urinary Tract Infections, Genitourinary Cancer, Problems Gastrointestinal: History of: GERD, Hemorrhoids Musculoskeletal: 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 Vinay Shipley), Back/ Neck Problems, Musculoskeletal Problems (weak and debilitated with osteoarthritis) Hematology: History of: Anemia No history of: Blood Transfusion Reaction - Surgical History Cardiac Surgeries: Sugical HX of: Cardiac Catheterization (07/[address] Weiss) Thoracic Surgeries: Patient denies;: Kidney (Renal Surgery), Lithotripsy, Nephrectomy, Organ Transplant, Lobectomy Neurologic Surgeries: Surgical HX of: Neurologic Surgery Patient denies: Brain Aneurysm, Cerebral Hemorrhage HEENT Surgeries: Patient denies: Eye Surgery, Thyroid Surgery, Tonsilectomy & Adenoidectomy Abdominal Surgeries: Surgical HX of: Abdominal Surgery, Appendectomy, Hernia Repair Patient denies: Colonoscopy, Gastric Bypass Surgery, EGD Reproductive Surgeries: Patient denies;: Cystoscopy, Genitourinary Surgery, Prostate Surgery - Family History Family History: Reports;: Family Diabetes (mom) - Social History Smoking Status: Never smoker Frequency of Alcohol Use: None Type of Drug Use: None Exam Vital Signs: Vital Signs Temperature 97.6 F 08/15/16 10:12 Pulse Rate 73 08/15/16 10:12 Respiratory Rate 16 08/15/16 10:15 Blood Pressure 153/89 08/15/16 10:12 O2 Sat by Pulse Oximetry 99 08/15/16 10:12 GENERAL: This is a chronically ill-appearing black male in no apparent distress. VITAL SIGNS: Reviewed HEENT: Head is atraumatic and normocephalic. Pupils are equal round react to light. Extraocular movements are intact. Oropharynx is benign with moist mucous membranes. NECK: Neck is soft and supple without tenderness. There are no masses. There is no lymphadenopathy. LUNGS: Lungs are clear to auscultation. Chest rises symmetrically. There is no chest wall tenderness. CV: Heart is regular rate and rhythm without murmurs rubs or gallops. ABDOMEN: Abdomen is soft, nontender to palpation. There are no abdominal abnormal masses palpated. There is no organomegaly. Bowel sounds are present and active. SKIN: Skin is warm and dry. No rash. EXTREMITIES: Right midfoot amputation. There is no pedal edema. NEUROLOGIC: Awake alert and oriented 4. Cranial nerves II through XII are grossly intact. Motor is 4 over 5 in all extremities bilaterally. Course - Consultations Consultation #1: Discussed with hospitalist. Patient will be admitted to their service. Time: 12:05 Results - Labs CBC & BMP: 08/15/16 10:49 08/15/16 10:49 Lab Results: I have reviewed the patients labs - EKG EKG results: interpreted by ERMD - Impressions EKG: Normal sinus rhythm with rate of 74, old inferior ND. Nonspecific ST-T wave changes. Normal axis. - Diagnostic Findings Procedure: Chest x-ray: image reviewed by me (Increased pulmonary markings bilaterally.) Disposition Clinical Impression: Chest pain, Diabetes mellitus, Coronary artery disease Case discussed with: patient Disposition: Still a Patient Condition: Stable
--- NOTE | 2016-08-15 10:30 | XRay Report ---
XR chest 1V portable Indication: Chest pain. Comparison: Chest x-ray 08/04/2016 Technique: Portable AP chest was performed. Findings: Heart size is enlarged, stable. Central vascular prominence and interval increase in bilateral mid and lower lung interstitial and airspace opacities is most suggestive of congestive heart failure with vascular congestion and pulmonary edema. Bones and soft tissues demonstrate no significant abnormalities. Impression: 1. Interval development of congestive heart failure and/or pulmonary edema is suggested. 08/15/2016 10:26 AM PROCEDURE INTERPRETED AT [facility] DEPARTMENT OF RADIOLOGY Final Report Signed by: Dr. Ramesh Calderon
[2016-08-15 11:11] LABS: Basophils % 0.2 % (0.0-0.8); Eosinophils # 0.1 10*3/uL (0.0-0.87); Eosinophils % 1.2 % (0.00-10.9); Hematocrit 30.8 VOL% (42.0-52.0); Hemoglobin 9.9 GM/DL (14.0-18.0); Immature Granulocytes % 0.5 %; Immature Granulocytes Absolute 0.03 #; Lymphocytes # 1.5 10*3/uL (1.4-4.0); Lymphocytes % 25.5 % (21.2-54.2); Mean Corpuscular HGB Conc 32.1 GM/DL (32-36); Mean Corpuscular Hemoglobin 27 PG (27-34); Mean Corpuscular Volume 82.4 FL (87-102); Mean Platelet Volume 10.1 FL (9.6-12.0); Monocytes # 0.5 10*3/uL (0.11-0.8); Monocytes % 7.7 % (1.7-12.7); Neutrophils # 3.9 10*3/uL (1.4-7.4); Neutrophils % 64.9 % (38.7-73.9); Platelet Count 176 T/CUMM (130-400); Red Blood Count 3.74 MC/CUMM (3.8-5.5); Red Cell Distribution Width 16.5 % (9.3-17.3)
[2016-08-15 11:24] LABS: INR 1.1; PT Patient Result 11.8 SECS; Partial Thromboplastin Time 30.3 SECS (0-40)
[2016-08-15 11:47] LABS: Bilirubin,Total 0.5 MG/DL (0.2-1.0); Calcium 7.9 MG/DL (8.5-10.1); Potassium 5.1 MMOL/L (3.5-5.1)
--- NOTE | 2016-08-15 12:37 | Hospitalist History & Physical ---
Assessment and Plan - Time spent with patient Time spent with patient: Less than 30 minutes (1) Chest pain Status: Acute Assessment and plan: Patient has atypical chest pain but has known coronary artery disease and multiple risk factors with minimal elevation of troponin. We will place him in observation for serial cardiac biomarkers and EKGs, optimize medical therapy and ask cardiology to assist. Current Visit: Yes (2) Coronary artery disease Status: Chronic Assessment and plan: As noted above. Current Visit: Yes (3) Diabetes mellitus Status: Chronic Assessment and plan: We will continue his current regimen with Accu-Cheks and sliding scale insulin. Current Visit: Yes Qualifiers: Diabetes mellitus type: type 2 (4) CHF (congestive heart failure) Status: Acute Assessment and plan: Patient has evidence of mild congestive heart failure with a known ejection fraction of 35-40%. Will gently diurese and optimize his medical therapy. Current Visit: No Qualifiers: Congestive heart failure type: systolic Congestive heart failure chronicity : acute on chronic Qualified Code(s): I50.23 - Acute on chronic systolic ( congestive) heart failure (5) CKD (chronic kidney disease) Status: Chronic Assessment and plan: Patient has chronic kidney disease stage III. Creatinine today is 1.7. Will avoid any potential nephrotoxic insults or injury. Current Visit: No Qualifiers: Chronic kidney disease stage: stage 3 (moderate) Qualified Code(s): N18.3 - Chronic kidney disease, stage 3 (moderate) (6) Dyslipidemia Status: Chronic Assessment and plan: Continue current medical management. Current Visit: No (7) Hypertension Status: Chronic Assessment and plan: Currently stable. Continue current medical management. Current Visit: No Qualifiers: Hypertension type: essential hypertension Qualified Code(s): I10 - Essential (primary) hypertension History of Present Illness Chief complaint: Chest pain, nausea, vomiting History of present illness: Mr. Marcial is a 76 year old -Citizen Of [place] male with known history of coronary artery disease status post stenting of the mid LAD, multiple risk factors who is currently at the swing bed at [facility] states he had left anterior chest pressure sometime between 7 and 8 AM this morning followed by nausea and vomiting. He denied any shortness of breath or diaphoresis. There is no radiation of the pain. He states he did get some relief with medication given in the emergency room however is persistent. He denies any fever, chills, abdominal pain, diarrhea, constipation, melena, hematochezia, hematemesis, dysuria, hematuria, urinary frequency urgency or incontinence, seizures, syncope , focal motor weakness or paresthesias. He has had a mild cough productive of white phlegm. He states he does wear O2 at the swing bed. His primary care provider is Dr. Russell Francis and his bird keeper is Dr. Teodora Petersen. He did have stenting of his right anterior tibial artery by Dr. David Weiss on August 03, 2016. He also had cardiac catheterization on July 13, 2016 which noted a normal left main and widely patent mid LAD stenting otherwise normal in significant mild to moderate coronary artery disease and a right dominant system. Ejection fraction noted to be 35-40%. Home Medications Medication Instructions Recorded Confirmed Type Clopidogrel Bisulfate [Clopidogrel] 75 mg PO DAILY 02/07/16 08/15/16 History Pantoprazole Tab [Protonix Tab] 40 mg PO DAILY 02/07/16 08/15/16 History Aspirin EC Tab 81 mg PO DAILY tablet 02/12/16 08/15/16 Rx Atorvastatin [Lipitor] 40 mg PO DAILY #0 02/12/16 08/15/16 Rx HYDROcodone/ACETAMIN 10-325 [[place] 1 tablet PO Q6H PRN #30 02/12/16 08/15/16 Rx 10-325] Albuterol/Ipratropium Neb [Duoneb] 3 ml RESP TX RT Q4H 05/29/16 08/15/16 Rx Ranolazine [Ranexa] 500 mg PO BID #60 tablet 07/15/16 08/15/16 Rx Nitroglycerin Sl Tab [Nitrostat] 0.4 mg SL Q5M PRN 08/01/16 08/15/16 History Carvedilol [Coreg] 25 mg PO BID tablet 08/07/16 08/15/16 Rx Furosemide Tab [Lasix Tab] 40 mg PO DAILY #30 tablet 08/07/16 08/15/16 Rx Levofloxacin Tab [Levaquin Tab] 250 mg PO DAILY #6 tablet 08/07/16 08/15/16 Rx Magnesium Oxide 400 mg PO BID tablet 08/07/16 08/15/16 Rx Skin Healing Oint (Aquaphor) 1 applic TOP PRN PRN #0 applic 08/07/16 08/15/16 Rx [Aquaphor] Tamsulosin [Flomax] 0.4 mg PO DAILY capsule 08/07/16 08/15/16 Rx traZODone [Desyrel] 50 mg PO BEDTIME PRN #0 tablet 08/07/16 08/15/16 Rx Acetaminophen Tab [Tylenol Tab] 325 - 650 mg PO Q4H PRN 08/15/16 08/15/16 History Alum/Mag/Simeth Max Str Liquid 30 ml PO Q6H PRN 08/15/16 08/15/16 History [Mylanta Max Strength Liquid] Bisacodyl Supp [Dulcolax Supp] 10 mg RECTAL DAILY PRN 08/15/16 08/15/16 History Bisacodyl Tab [Dulcolax Tab] 10 mg PO DAILY 08/15/16 08/15/16 History Magnesium Hydroxide Susp [Milk of 30 ml PO BID PRN 08/15/16 08/15/16 History Magnesia] Nystatin Liquid [Mycostatin Oral 500,000 unit SWISH/SWAL QID 08/15/16 08/15/16 History Susp] Ondansetron Tab [Zofran Tab] 4 mg PO Q6H PRN 08/15/16 08/15/16 History Tramadol HCl [Tramadol Tab] 50 mg PO Q6H PRN 08/15/16 08/15/16 History Zaleplon 5 mg PO BEDTIME PRN 08/15/16 08/15/16 History guaiFENesin LIQUID [Robitussin] 10 ml PO Q4H PRN 08/15/16 08/15/16 History Allergies Allergy/AdvReac Type Severity Reaction Status Date / Time Sulfa (Sulfonamide Allergy HIVES Verified 08/01/16 14:58 Antibiotics) Medical,Surgical,& Family Hx - Medical History Cardio: History of: CHF (EF 40% last month the cath), CAD (PCI of the LAD at [place] with diffuse small vessel disease and 417), Hypertension, [place], Cardiovascular Problems Psychological: No history of: Anxiety Disorders, Behavior Problems, Bipolar Disorder Neurology: History of: Migraine No history of: Brain Aneurysm, Cerebral Hemorrhage, Cerebrovascular Accident , Cerebral Palsy, Dementia, Seizures Endocrine: History of: Diabetes Mellitus (IDDM) No history of: Thyroid Disorder, Endocrine Problems Respiratory: History of: Pneumonia, Respiratory Problems (wears o2 at night) No history of: Obstructive Sleep Apnea, Pulmonary Embolism Renal: No history of: Renal (Kidney) Cancer, Dialysis, Renal Failure, Renal Problems Genitourinary: No history of: Bladder Problem, Kidney Stones, Prostate Problems, Recurring Urinary Tract Infections, Genitourinary Cancer, Problems Gastrointestinal: History of: GERD, Hemorrhoids Musculoskeletal: 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 Vinay Shipley), Back/ Neck Problems, Musculoskeletal Problems (weak and debilitated with osteoarthritis) Hematology: History of: Anemia No history of: Blood Transfusion Reaction - Surgical History Cardiac Surgeries: Sugical HX of: Cardiac Catheterization (07/[address] Weiss) Thoracic Surgeries: Patient denies;: Kidney (Renal Surgery), Lithotripsy, Nephrectomy, Organ Transplant, Lobectomy Neurologic Surgeries: Surgical HX of: Neurologic Surgery Patient denies: Brain Aneurysm, Cerebral Hemorrhage HEENT Surgeries: Patient denies: Eye Surgery, Thyroid Surgery, Tonsilectomy & Adenoidectomy Abdominal Surgeries: Surgical HX of: Abdominal Surgery, Appendectomy, Hernia Repair Patient denies: Colonoscopy, Gastric Bypass Surgery, EGD Reproductive Surgeries: Patient denies;: Cystoscopy, Genitourinary Surgery, Prostate Surgery - Family History Family History: Reports;: Family Diabetes (mom) - Social History Smoking Status: Never smoker Frequency of Alcohol Use: None Type of Drug Use: None 12 point system: reviewed and no additional remarkable complaints except as stated Exam - Constitutional General appearance: no acute distress - Head Head exam: Present: normocephalic, atraumatic - Eye Eye exam: Present: EOMI Pupils: Present: FUNMILAYO - ENT ENT exam: Present: normal exam - Neck Neck exam: Present: normal inspection - Respiratory Respiratory exam: Present: clear to auscultation bilaterally. Absent: rales, rhonchi, wheezes - Cardiovascular Cardiovascular exam: Present: regular rate and rhythm. Absent: gallop, JVD, systolic murmur, tachycardia - GI/Abdominal GI/Abdominal exam: Present: normal bowel sounds, soft. Absent: distended, tenderness, rebound - Extremities Exam Extremities exam: Present: other (Chronic skin changes of lower extremities, transmetatarsal amputation right foot with dressings intact). Absent: calf tenderness, edema - Back Exam Back exam: Present: normal inspection - Neurological Exam Neurological exam: Present: alert, oriented X3, CN II-XII intact. Absent: motor sensory deficit - Psychiatric Psychiatric exam: Present: normal affect, normal mood. Absent: agitated, anxious - Skin Skin exam: Present: warm, dry Results - Labs CBC & BMP: 08/15/16 10:49 08/15/16 10:49 Lab Results: I have reviewed the past 24 hour labs - EKG EKG results: no acute changes EKG shows: sinus rhythm - Diagnostic Findings Procedure: Chest x-ray: report reviewed by me
[2016-08-15] MEDS ORDERED: traZODone 50 MG TABLET PO PRN (12:43)
[2016-08-15] MEDS ORDERED: ZALEPLON 5 MG CAPSULE PO PRN (12:43)
[2016-08-15] MEDS ORDERED: SKIN HEALING OINT (AQUAPHOR) 50 GM TUBE TOP PRN (12:43)
[2016-08-15] MEDS ORDERED: ONDANSETRON 4 MG TABLET PO PRN (12:43)
[2016-08-15] MEDS ORDERED: BISACODYL 10 MG SUPP RECTAL PRN (12:43)
[2016-08-15] MEDS ORDERED: traMADol 50 MG TABLET PO PRN (12:43)
[2016-08-15] MEDS ORDERED: NITROGLYCERIN SL 0.4 MG TABLET SL PRN (12:43)
[2016-08-15] MEDS ORDERED: ALUMINUM/MAGNES/SIMETH MAX STR 30 ML UDCUP PO PRN (12:43)
[2016-08-15] MEDS ORDERED: MAGNESIUM HYDROXIDE SUSP 30 ML UDCUP PO PRN (12:43)
[2016-08-15] MEDS ORDERED: guaiFENesin 200 MG/10 ML UDCUP PO PRN (12:43)
[2016-08-15] MEDS ORDERED: ACETAMINOPHEN 325 MG TABLET PO PRN (12:47)
[2016-08-15] MEDS ORDERED: DEXTROSE 50% 25 GM/50 ML VIAL IV PRN (12:47)
[2016-08-15] MEDS ORDERED: GLUCAGON 1 MG VIAL IM PRN (12:47)
[2016-08-15] MEDS ORDERED: FUROSEMIDE 40 MG/4 ML VIAL IV ONE (12:53)
[2016-08-15] MEDS: ENOXAPARIN 40 MG/0.4 ML SYRINGE SUBCUT SCH (14:16)
[2016-08-15] MEDS: NYSTATIN 500,000 UNIT/5 ML UDCUP SWISH/SWAL SCH ×3 (14:17→21:15)
[2016-08-15] MEDS: ASPIRIN EC 81 MG TABLET PO SCH (14:17)
[2016-08-15] MEDS: hydrALAZINE 10 MG TABLET PO SCH ×2 (14:17→21:15)
--- NOTE | 2016-08-15 14:23 | EKG Report ---
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
[2016-08-15] MEDS: ALBUTEROL/IPRATROPIUM 3 ML NEB RESP TX SCH ×2 (14:45→19:31)
--- NOTE | 2016-08-15 14:59 | EKG Report ---
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
[2016-08-15] MEDS: INSULIN LISPRO 100 UNIT/ML SUBCUT SCH ×2 (17:06→20:24)
[2016-08-15] MEDS: NITROGLYCERIN 2% OINT 1 INCH/GM PACK TOP SCH ×2 (17:18→23:50)
[2016-08-15] MEDS: CARVEDILOL 25 MG TABLET PO SCH (21:15)
[2016-08-15] MEDS: MAGNESIUM OXIDE 400 MG TABLET PO SCH (21:15)
[2016-08-15] MEDS: RANOLAZINE 500 MG TABLET PO SCH (21:15)
[2016-08-16] MEDS: ALBUTEROL/IPRATROPIUM 3 ML NEB RESP TX SCH ×6 (00:27→19:22)
[2016-08-16] MEDS: NITROGLYCERIN 2% OINT 1 INCH/GM PACK TOP SCH ×3 (05:01→17:02)
[2016-08-16 05:13] LABS: Basophils % 0.4 % (0.0-0.8); Eosinophils # 0.1 10*3/uL (0.0-0.87); Eosinophils % 2.6 % (0.00-10.9); Hematocrit 30.1 VOL% (42.0-52.0); Hemoglobin 9.5 GM/DL (14.0-18.0); Immature Granulocytes % 0.4 %; Immature Granulocytes Absolute 0.02 #; Lymphocytes # 1.8 10*3/uL (1.4-4.0); Lymphocytes % 33.5 % (21.2-54.2); Mean Corpuscular HGB Conc 31.6 GM/DL (32-36); Mean Corpuscular Hemoglobin 26 PG (27-34); Mean Corpuscular Volume 81.6 FL (87-102); Mean Platelet Volume 9.5 FL (9.6-12.0); Monocytes # 0.4 10*3/uL (0.11-0.8); Monocytes % 7.4 % (1.7-12.7); Neutrophils % 55.7 % (38.7-73.9); Platelet Count 163 T/CUMM (130-400); Red Blood Count 3.69 MC/CUMM (3.8-5.5); Red Cell Distribution Width 16.1 % (9.3-17.3); White Blood Count 5.4 T/CUMM (4-12)
[2016-08-16 05:44] LABS: Calcium 7.6 MG/DL (8.5-10.1); Osmolality,Calculated 277.7 MOS/KG (273-304); Potassium 4.6 MMOL/L (3.5-5.1)
[2016-08-16] MEDS: INSULIN LISPRO 100 UNIT/ML SUBCUT SCH ×4 (08:15→21:06)
[2016-08-16] MEDS: NYSTATIN 500,000 UNIT/5 ML UDCUP SWISH/SWAL SCH ×4 (09:11→21:06)
[2016-08-16] MEDS: ATORVASTATIN 10 MG TABLET PO SCH (09:12)
[2016-08-16] MEDS: MAGNESIUM OXIDE 400 MG TABLET PO SCH ×2 (09:12→21:05)
[2016-08-16] MEDS: BISACODYL 5 MG TABLET PO SCH (09:12)
[2016-08-16] MEDS: FUROSEMIDE 40 MG TABLET PO SCH (09:13)
[2016-08-16] MEDS: CARVEDILOL 25 MG TABLET PO SCH ×2 (09:13→21:05)
[2016-08-16] MEDS: LEVOFLOXACIN 250 MG TABLET PO SCH (09:13)
[2016-08-16] MEDS: RANOLAZINE 500 MG TABLET PO SCH ×2 (09:13→21:06)
[2016-08-16] MEDS: TAMSULOSIN 0.4 MG CAPSULE PO SCH (09:13)
[2016-08-16] MEDS: ASPIRIN EC 81 MG TABLET PO SCH (09:13)
[2016-08-16] MEDS: PANTOPRAZOLE 40 MG TABLET PO SCH (09:13)
[2016-08-16] MEDS: CLOPIDOGREL 75 MG TABLET PO SCH (09:13)
[2016-08-16] MEDS: hydrALAZINE 10 MG TABLET PO SCH ×3 (09:13→21:06)
--- NOTE | 2016-08-16 09:36 | EKG Report ---
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
--- NOTE | 2016-08-16 10:58 | Cardiology Consult Note ---
Assessment and Plan (1) Coronary artery disease Status: Chronic Assessment and plan: Patient has known coronary disease and had no evidence of significant restenosis at cath done 1 month ago. His symptoms are somewhat atypical and his troponin elevations can be explained by his renal insufficiency. I would be inclined to want to reevaluate this with the noninvasive testing. We will review the echocardiography this admission. Current Visit: Yes (2) Diabetes mellitus Status: Chronic Current Visit: Yes Qualifiers: Diabetes mellitus type: type 2 (3) Acute renal insufficiency Status: Acute Current Visit: No (4) S/P PCI LAD with OLIVIA Status: Chronic Current Visit: No (5) Congestive heart failure Status: Resolved Assessment and plan: The patient clinically does not appear to be in congestive heart failure. We are going to increase his activity and continue his current medications. Current Visit: No Qualifiers: Congestive heart failure type: systolic Congestive heart failure chronicity : acute on chronic Qualified Code(s): I50.23 - Acute on chronic systolic ( congestive) heart failure History of Present Illness - Data of Consult Patient: known to practice within the last 3 years - Consult Narrative Reason for consult: Chest discomfort elevated troponin History of present illness: Mr. Marcial is a 76 year old male who is admitted now with chest discomfort which he says is lasted for several days. He has been admitted on several occasions in the last month. He underwent cardiac catheterization roughly 1 month ago which showed open epicardial coronaries with distal LAD disease which was diffuse in nature and felt to be optimally treated with medications. He has had PCI of the posterior tibial Dr. Weiss. He has had stenting of his LAD done about 6 months ago. He is a difficult historian but does not have what sounds like exertional anginal chest pain. He says his chest feels full as if he has fluid. The pain has been fairly constant. He does have renal insufficiency and his troponins are mildly elevated. They are in the 0.05 range. His EKG does not show any diagnostic change. He does have T-wave changes suspicious for anterior ischemia but this is unchanged from prior EKGs done months ago. He is admitted now to rule out myocardial infarction and likely will need screening exercise treadmill testing at some point although I do not feel it has to be done this admission at least based on her current information. CC: Luz Duggan - Home Medications and Allergies Home Medications: Home Medications Medication Instructions Recorded Confirmed Type Clopidogrel Bisulfate [Clopidogrel] 75 mg PO DAILY 02/07/16 08/15/16 History Pantoprazole Tab [Protonix Tab] 40 mg PO DAILY 02/07/16 08/15/16 History Aspirin EC Tab 81 mg PO DAILY tablet 02/12/16 08/15/16 Rx Atorvastatin [Lipitor] 40 mg PO DAILY #0 02/12/16 08/15/16 Rx HYDROcodone/ACETAMIN 10-325 [[place] 1 tablet PO Q6H PRN #30 02/12/16 08/15/16 Rx 10-325] Albuterol/Ipratropium Neb [Duoneb] 3 ml RESP TX RT Q4H 05/29/16 08/15/16 Rx Ranolazine [Ranexa] 500 mg PO BID #60 tablet 07/15/16 08/15/16 Rx Nitroglycerin Sl Tab [Nitrostat] 0.4 mg SL Q5M PRN 08/01/16 08/15/16 History Carvedilol [Coreg] 25 mg PO BID tablet 08/07/16 08/15/16 Rx Furosemide Tab [Lasix Tab] 40 mg PO DAILY #30 tablet 08/07/16 08/15/16 Rx Levofloxacin Tab [Levaquin Tab] 250 mg PO DAILY #6 tablet 08/07/16 08/15/16 Rx Magnesium Oxide 400 mg PO BID tablet 08/07/16 08/15/16 Rx Skin Healing Oint (Aquaphor) 1 applic TOP PRN PRN #0 applic 08/07/16 08/15/16 Rx [Aquaphor] Tamsulosin [Flomax] 0.4 mg PO DAILY capsule 08/07/16 08/15/16 Rx traZODone [Desyrel] 50 mg PO BEDTIME PRN #0 tablet 08/07/16 08/15/16 Rx Acetaminophen Tab [Tylenol Tab] 325 - 650 mg PO Q4H PRN 08/15/16 08/15/16 History Alum/Mag/Simeth Max Str Liquid 30 ml PO Q6H PRN 08/15/16 08/15/16 History [Mylanta Max Strength Liquid] Bisacodyl Supp [Dulcolax Supp] 10 mg RECTAL DAILY PRN 08/15/16 08/15/16 History Bisacodyl Tab [Dulcolax Tab] 10 mg PO DAILY 08/15/16 08/15/16 History Magnesium Hydroxide Susp [Milk of 30 ml PO BID PRN 08/15/16 08/15/16 History Magnesia] Nystatin Liquid [Mycostatin Oral 500,000 unit SWISH/SWAL QID 08/15/16 08/15/16 History Susp] Ondansetron Tab [Zofran Tab] 4 mg PO Q6H PRN 08/15/16 08/15/16 History Tramadol HCl [Tramadol Tab] 50 mg PO Q6H PRN 08/15/16 08/15/16 History Zaleplon 5 mg PO BEDTIME PRN 08/15/16 08/15/16 History guaiFENesin LIQUID [Robitussin] 10 ml PO Q4H PRN 08/15/16 08/15/16 History Allergies/Adverse Reactions: Allergies Allergy/AdvReac Type Severity Reaction Status Date / Time Sulfa (Sulfonamide Allergy HIVES Verified 08/01/16 14:58 Antibiotics) Medical,Surgical,& Family Hx - Medical History Cardio: History of: CHF (EF 40% last month the cath), CAD (PCI of the LAD at [place] with diffuse small vessel disease and 417), Hypertension, [place], Cardiovascular Problems Psychological: No history of: Anxiety Disorders, Behavior Problems, Bipolar Disorder Neurology: History of: Migraine No history of: Brain Aneurysm, Cerebral Hemorrhage, Cerebrovascular Accident , Cerebral Palsy, Dementia, Seizures Endocrine: History of: Diabetes Mellitus (IDDM) No history of: Thyroid Disorder, Endocrine Problems Respiratory: History of: Pneumonia, Respiratory Problems (wears o2 at night) No history of: Obstructive Sleep Apnea, Pulmonary Embolism Renal: No history of: Renal (Kidney) Cancer, Dialysis, Renal Failure, Renal Problems Genitourinary: No history of: Bladder Problem, Kidney Stones, Prostate Problems, Recurring Urinary Tract Infections, Genitourinary Cancer, Problems Gastrointestinal: History of: GERD, Hemorrhoids Musculoskeletal: 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 Vinay Shipley), Back/ Neck Problems, Musculoskeletal Problems (weak and debilitated with osteoarthritis) Hematology: History of: Anemia No history of: Blood Transfusion Reaction - Surgical History Cardiac Surgeries: Sugical HX of: Cardiac Catheterization (07/[address] Weiss) Thoracic Surgeries: Patient denies;: Kidney (Renal Surgery), Lithotripsy, Nephrectomy, Organ Transplant, Lobectomy Neurologic Surgeries: Surgical HX of: Neurologic Surgery Patient denies: Brain Aneurysm, Cerebral Hemorrhage HEENT Surgeries: Patient denies: Eye Surgery, Thyroid Surgery, Tonsilectomy & Adenoidectomy Abdominal Surgeries: Surgical HX of: Abdominal Surgery, Appendectomy, Hernia Repair Patient denies: Colonoscopy, Gastric Bypass Surgery, EGD Reproductive Surgeries: Patient denies;: Cystoscopy, Genitourinary Surgery, Prostate Surgery - Family History Family History: Reports;: Family Diabetes (mom) - Social History Smoking Status: Never smoker Frequency of Alcohol Use: None Type of Drug Use: None Physical Examination Vital Signs Temp Pulse Resp BP Pulse Ox 97.2 F L 76 18 135/90 91 L 08/15/16 09:46 08/15/16 09:46 08/15/16 09:46 08/15/16 09:46 08/15/16 09:46 Result/EKG - Labs CBC & BMP: 08/16/16 05:01 08/16/16 05:01 Labs: Laboratory Results - last 24 hr 08/15/16 08/15/16 08/15/16 13:43 15:48 16:11 WBC RBC Hgb Hct MCV MCH MCHC RDW Plt Count MPV Neut % (Auto) Lymph % (Auto) [place] % (Auto) Eos % (Auto) Baso % (Auto) Neut # (Auto) Lymph # (Auto) [place] # (Auto) Eos # (Auto) Baso # (Auto) Immature Gran % Nucleated RBC % Immature Gran # Nucleated RBCs # Sodium Potassium Chloride Carbon Dioxide Anion Gap BUN Creatinine GFR Calculation BUN/Creatinine Ratio Glucose POC Glucose 156 H Calculated Osmolality Calcium Troponin I 0.060 H 0.056 H 08/15/16 08/16/16 08/16/16 19:03 05:01 05:01 WBC 5.4 RBC 3.69 L Hgb 9.5 L Hct 30.1 L MCV 81.6 L MCH 26 L MCHC 31.6 L RDW 16.1 Plt Count 163 MPV 9.5 L Neut % (Auto) 55.7 Lymph % (Auto) 33.5 [place] % (Auto) 7.4 Eos % (Auto) 2.6 Baso % (Auto) 0.4 Neut # (Auto) 3.0 Lymph # (Auto) 1.8 [place] # (Auto) 0.4 Eos # (Auto) 0.1 Baso # (Auto) 0.0 Immature Gran % 0.4 Nucleated RBC % 0.0 Immature Gran # 0.02 Nucleated RBCs # 0.00 Sodium 138 Potassium 4.6 Chloride 102 Carbon Dioxide 31 Anion Gap 9.6 BUN 22 H Creatinine 1.70 H GFR Calculation 55 BUN/Creatinine Ratio 12.00 Glucose 104 POC Glucose 156 H Calculated Osmolality 277.7 Calcium 7.6 L Troponin I - EKG EKG results: interpreted by me (Sinus rhythm with ST-T change suspicious for anterior ischemia unchanged from an EKG done 3 weeks ago.) Quality Measures - Stroke Symptom Onset Unknown: No
--- NOTE | 2016-08-16 11:22 | Hospitalist Progress Note ---
Assessment and Plan - Time spent with patient Time spent with patient: Less than 30 minutes (1) Chest pain Status: Acute Assessment and plan: Patient has atypical chest pain but has known coronary artery disease and multiple risk factors with minimal elevation of troponin. We will place him in observation for serial cardiac biomarkers and EKGs, optimize medical therapy and ask cardiology to assist. 08/16/16. Continuing to optimize medical therapy. We will continue to monitor over the next 24 hours and reassess for possible inpatient versus outpatient noninvasive stress testing. Current Visit: Yes (2) Coronary artery disease Status: Chronic Assessment and plan: As noted above. Current Visit: Yes (3) Diabetes mellitus Status: Chronic Assessment and plan: We will continue his current regimen with Accu-Cheks and sliding scale insulin. Current Visit: Yes Qualifiers: Diabetes mellitus type: type 2 (4) CHF (congestive heart failure) Status: Acute Assessment and plan: Patient has evidence of mild congestive heart failure with a known ejection fraction of 35-40%. Will gently diurese and optimize his medical therapy. Current Visit: No Qualifiers: Congestive heart failure type: systolic Congestive heart failure chronicity : acute on chronic Qualified Code(s): I50.23 - Acute on chronic systolic ( congestive) heart failure (5) CKD (chronic kidney disease) Status: Chronic Assessment and plan: Patient has chronic kidney disease stage III. Creatinine today is 1.7. Will avoid any potential nephrotoxic insults or injury. Current Visit: No Qualifiers: Chronic kidney disease stage: stage 3 (moderate) Qualified Code(s): N18.3 - Chronic kidney disease, stage 3 (moderate) (6) Dyslipidemia Status: Chronic Assessment and plan: Continue current medical management. Current Visit: No (7) Hypertension Status: Chronic Assessment and plan: Currently stable. Continue current medical management. Current Visit: No Qualifiers: Hypertension type: essential hypertension Qualified Code(s): I10 - Essential (primary) hypertension Hospitalist: Subjective Interval history: Mr. Marcial continues to complain of some intermittent chest fullness. He has been seen by Dr. Ortega this morning I discussed with them. At this time he feels like we should continue monitoring for another 24 hours and reassess in the a.m. for possible exercise treadmill testing which at this point he believes can be done on an outpatient basis. Exam - Constitutional Vitals: Period Temp Pulse Resp BP Sys/Zapien Pulse Ox Last 24 Hr 96.5 F-98.6 F 68-79 16-20 91-161/55-95 92-100 General appearance: no acute distress - Head Head exam: Present: normocephalic, atraumatic - Eye Eye exam: Present: EOMI Pupils: Present: FUNMILAYO - ENT ENT exam: Present: normal exam - Neck Neck exam: Present: normal inspection - Respiratory Respiratory exam: Present: clear to auscultation bilaterally. Absent: rales, rhonchi, wheezes - Cardiovascular Cardiovascular exam: Present: regular rate and rhythm - GI/Abdominal GI/Abdominal exam: Present: normal bowel sounds, soft. Absent: mass, tenderness - Extremities Exam Extremities exam: Absent: calf tenderness, edema - Back Exam Back exam: Present: normal inspection - Neurological Exam Neurological exam: Present: alert, oriented X3, CN II-XII intact. Absent: motor sensory deficit - Psychiatric Psychiatric exam: Present: normal affect, normal mood. Absent: agitated, anxious - Skin Skin exam: Present: warm, dry. Absent: erythema, rash Results - Labs CBC & BMP: 08/16/16 05:01 08/16/16 05:01 Lab Results: I have reviewed the past 24 hour labs - EKG EKG shows: sinus rhythm Quality Measures - Stroke Symptom Onset Unknown: No
[2016-08-16] MEDS: ENOXAPARIN 40 MG/0.4 ML SYRINGE SUBCUT SCH (13:23)
[2016-08-17] MEDS: NITROGLYCERIN 2% OINT 1 INCH/GM PACK TOP SCH ×3 (00:33→13:14)
[2016-08-17] MEDS: ALBUTEROL/IPRATROPIUM 3 ML NEB RESP TX SCH ×3 (00:35→07:17)
--- NOTE | 2016-08-17 06:58 | EKG Report ---
Stationary ECG Study [facility] Test Date: 08/17/2016 6:57:03 AM Pat Name: DAGMAR PURCELL Department: Room: 281 Gender: M [employer] Professional: SANTO : 1940 Requested by: Rusty Gutierres Order Number: [id number] Reading MD: LAVELL PACHECO Intervals [place] Rate: 71 P: 86 IA: 143 QRS: 62 QRSD: 97 T: 79 QT: 404 QTc: 427 Interpretive Statements SINUS RHYTHM POSSIBLE INFERIOR MYOCARDIAL INFARCTION, PROBABLY OLD MODERATE T-WAVE ABNORMALITY, CONSIDER ANTERIOR ISCHEMIA Electronically Signed On 08-17-16 07:05:29 CDT by LAVELL PACHECO [email or web address]
--- NOTE | 2016-08-17 08:24 | Discharge Summary ---
Hospital Course - Hospital Course Hospital Course: 76-year-old -[place] male with a history of coronary artery disease in renal failure presents from [facility] with complaints of chest pain today. Patient was over at [facility] getting rehab. Patient had a recent cardiac cath July 13, 2016 which showed widely patent LAD. His EF at that time was 35%. He has congestive heart failure and stage III renal disease with a creatinine of 1.7. His blood pressure is controlled. Serial cardiac enzymes were serial troponins were mildly elevated. Cardiology has seen him and does not plan further workup at this time. Patient's blood sugars are stable. Return him to [facility] today. - Time spent with patient Time with patient DS: Less than 30 minutes (25 min) Specialty Discharge - Follow Up or Referrals Discharge Plan - Discharge Data Disposition: Disch To Home/Self Care Condition at Discharge: Stable Discharge Diet: diabetic diet, heart healthy Activity: resume usual activities as tolerated Hygiene: no restrictions Weight Bearing at Discharge: full weight bearing - Discharge Medications New Acetaminophen Tab [Tylenol Tab] 325 mg PO Q4H PRN #0 tablet PRN Reason: fever, headache/body aches Insulin Lispro [HumaLOG] See Protocol SUBCUT ACHS unit hydrALAZINE TAB [Apresoline Tab] 10 mg PO TID tablet Dextrose 50% [D50] 25 gm IV PRN PRN #0 vial PRN Reason: Hypoglycemia with IV access Continue Clopidogrel Bisulfate [Clopidogrel] 75 mg PO DAILY Pantoprazole Tab [Protonix Tab] 40 mg PO DAILY Aspirin EC Tab 81 mg PO DAILY tablet Atorvastatin [Lipitor] 40 mg PO DAILY #0 Albuterol/Ipratropium Neb [Duoneb] 3 ml RESP TX RT Q4H Ranolazine [Ranexa] 500 mg PO BID #60 tablet Magnesium Oxide 400 mg PO BID tablet Skin Healing Oint (Aquaphor) [Aquaphor] 1 applic TOP PRN PRN #0 applic PRN Reason: Dry Skin traZODone [Desyrel] 50 mg PO BEDTIME PRN #0 tablet PRN Reason: Insomnia Tramadol HCl [Tramadol Tab] 50 mg PO Q6H PRN PRN Reason: Pain Ondansetron Tab [Zofran Tab] 4 mg PO Q6H PRN PRN Reason: Nausea/Vomiting Nystatin Liquid [Mycostatin Oral Susp] 500,000 unit SWISH/SWAL QID guaiFENesin LIQUID [Robitussin] 10 ml PO Q4H PRN PRN Reason: Cough Bisacodyl Tab [Dulcolax Tab] 10 mg PO DAILY Bisacodyl Supp [Dulcolax Supp] 10 mg RECTAL DAILY PRN PRN Reason: Constipation Alum/Mag/Simeth Max Str Liquid [Mylanta Max Strength Liquid] 30 ml PO Q6H PRN PRN Reason: Indigestion Nitroglycerin Sl Tab [Nitrostat] 0.4 mg SL Q5M PRN PRN Reason: Chest Pain Carvedilol [Coreg] 25 mg PO BID tablet Furosemide Tab [Lasix Tab] 40 mg PO DAILY #30 tablet Levofloxacin Tab [Levaquin Tab] 250 mg PO DAILY #6 tablet Tamsulosin [Flomax] 0.4 mg PO DAILY capsule Magnesium Hydroxide Susp [Milk of Magnesia] 30 ml PO BID PRN PRN Reason: Indigestion Zaleplon 5 mg PO BEDTIME PRN PRN Reason: Insomnia HYDROcodone/ACETAMIN 10-325 [[place] 10-325] 1 tablet PO Q6H PRN #30 PRN Reason: Pain Discontinued Acetaminophen Tab [Tylenol Tab] 325 - 650 mg PO Q4H PRN PRN Reason: fever, headache/body aches - Follow Up or Referral - Forms/Instructions Instructions: Coronary Artery Disease (GEN), Heart Healthy Diet (GEN) Exam - Constitutional Vitals: Period Temp Pulse Resp BP Sys/Zapien Pulse Ox Last 24 Hr 97.3 F-98.1 F 63-76 16-20 108-140/62-77 93-100 General appearance: normal weight, no acute distress - Respiratory Respiratory exam: Present: clear to auscultation bilaterally. Absent: rales, wheezes - Cardiovascular Cardiovascular exam: Present: regular rate and rhythm. Absent: systolic murmur Discharge Results Labs on day of discharge: Labs from last 24 hours 08/17/16 08/16/16 08/16/16 04:44 18:57 15:55 POC Glucose 150 H 119 H Troponin I 0.039 08/16/16 11:04 POC Glucose 152 H Troponin I DS: Provider Date of admission: 08/15/16 12:12 Primary care physician: . No PCP Attending physician on admission: Luz Duggan Consults: 08/15/16 12:47 Consult to Cardiac Rehabilitation [CONS] Routine Reason for Cardiac Rehabilitation: Risk Factor Modification Consult to Physician [CONS] Routine Comment: Consulting Provider: Cardiology - [facility] Discharging clinician: Viola Stanley MD
[2016-08-17] MEDS: TAMSULOSIN 0.4 MG CAPSULE PO SCH (08:29)
[2016-08-17] MEDS: ASPIRIN EC 81 MG TABLET PO SCH (08:29)
[2016-08-17] MEDS: CARVEDILOL 25 MG TABLET PO SCH (08:30)
[2016-08-17] MEDS: FUROSEMIDE 40 MG TABLET PO SCH (08:30)
[2016-08-17] MEDS: ATORVASTATIN 10 MG TABLET PO SCH (08:30)
[2016-08-17] MEDS: RANOLAZINE 500 MG TABLET PO SCH (08:30)
[2016-08-17] MEDS: hydrALAZINE 10 MG TABLET PO SCH (08:30)
[2016-08-17] MEDS: LEVOFLOXACIN 250 MG TABLET PO SCH (08:30)
[2016-08-17] MEDS: PANTOPRAZOLE 40 MG TABLET PO SCH (08:30)
[2016-08-17] MEDS: CLOPIDOGREL 75 MG TABLET PO SCH (08:30)
[2016-08-17] MEDS: NYSTATIN 500,000 UNIT/5 ML UDCUP SWISH/SWAL SCH (08:30)
[2016-08-17] MEDS: MAGNESIUM OXIDE 400 MG TABLET PO SCH (08:30)
[2016-08-17] MEDS: INSULIN LISPRO 100 UNIT/ML SUBCUT SCH ×2 (08:33→13:14)
[2016-08-17] MEDS: BISACODYL 5 MG TABLET PO SCH (08:33)
[2016-08-17 13:32] VITALS: BP 98/53
== END 2016-08-17 13:44 ==
LOC: EDUNIT# → EDBD → N.ED 09:45 → SUATTDRO 12:12 → N.EDINP 12:12 → INTOOBSV 12:12 → N.TELEN 12:34
PROVIDERS: ADMIT Hospitalist; ATTEND Internal Medicine

== ENCOUNTER 2016-09-24 22:48 | Inpatient (IN) ==
[2016-09-24] MEDS ORDERED: PANTOPRAZOLE 40 MG VIAL IV STA (23:06)
[2016-09-24] MEDS ORDERED: SODIUM CHLORIDE 0.9% 1,000 ML IV STA (23:06)
[2016-09-24] MEDS ORDERED: ONDANSETRON 4 MG/2 ML VIAL IV STA (23:06)
[2016-09-24] MEDS ORDERED: METOCLOPRAMIDE 10 MG/2 ML VIAL IV STA (23:06)
--- NOTE | 2016-09-24 23:11 | Emergency Department Note ---
Arrival - Arrival Chief Complaint: Abdominal / Flank Pain Stated Complaint: stomach pain ED Nursing Triage Note: C/O Generalized abd pain. Onset 1100 today. +nausea/ vomiting Last BM 0900 this morning-normal. Denies fever. Denies urinary s/s Mode of Arrival: Wheelchair Limitations: No Limitations Source: Patient Time Seen by Provider: 09/24/16 23:06 - History of Present Illness HPI Narrative: This 76-year-old black male presents with complaints of abrupt onset of nausea, vomiting, and abdominal cramping approximately 12 hours ago. He denies chills, fever, dysuria, urgency, heartburn, belching, family members at home with same, or intake of tainted food or beverage. Currently presents holding an emesis bag nauseated but in no acute medical distress. Onset (ago): hour(s) (Patient presents 12 hours post onset of symptoms) Allergies/Adverse Reactions: Allergies Allergy/AdvReac Type Severity Reaction Status Date / Time Sulfa (Sulfonamide Allergy HIVES Verified 08/01/16 14:58 Antibiotics) Home Medications: Home Medications Medication Instructions Recorded Confirmed Type Clopidogrel Bisulfate [Clopidogrel] 75 mg PO DAILY 02/07/16 08/17/16 History Pantoprazole Tab [Protonix Tab] 40 mg PO DAILY 02/07/16 08/17/16 History Ranolazine [Ranexa] 500 mg PO BID #60 tablet 07/15/16 08/17/16 Rx Skin Healing Oint (Aquaphor) 1 applic TOP PRN PRN #0 applic 08/07/16 08/17/16 Rx [Aquaphor] Tamsulosin [Flomax] 0.4 mg PO DAILY capsule 08/07/16 08/17/16 Rx traZODone [Desyrel] 50 mg PO BEDTIME PRN #0 tablet 08/07/16 08/17/16 Rx Nystatin Liquid [Mycostatin Oral 500,000 unit SWISH/SWAL QID 08/15/16 08/17/16 History Susp] Tramadol HCl [Tramadol Tab] 50 mg PO Q6H PRN 08/15/16 08/17/16 History Aspirin EC Tab 81 mg PO DAILY 08/17/16 08/17/16 History Atorvastatin [Lipitor] 40 mg PO DAILY 08/17/16 08/17/16 History Carvedilol [Coreg] 25 mg PO BID 08/17/16 08/17/16 History Furosemide Tab [Lasix Tab] 40 mg PO DAILY 08/17/16 08/17/16 History HYDROcodone/ACETAMIN 10-325 [[place] 1 tablet PO Q6H PRN #30 08/17/16 08/17/16 Rx 10-325] Magnesium Oxide 400 mg PO BID 08/17/16 08/17/16 History hydrALAZINE TAB [Apresoline Tab] 10 mg PO TID 08/17/16 08/17/16 History Metoclopramide Tab [Reglan Tab] 5 mg PO ACHS #20 tablet 09/25/16 Rx Promethazine Tab [Phenergan Tab] 25 mg PO Q6H #12 tablet 09/25/16 Rx Review of System - Review of System 12 point system: reviewed and no additional remarkable complaints except as stated - Review of System Constitutional: Present: as per HPI Gastrointestinal: Present: as per HPI Genitourinary male: Present: as per HPI Medical,Surgical,& Family Hx - Medical History Cardio: History of: CHF (EF 40% last month the cath), CAD (PCI of the LAD at [place] with diffuse small vessel disease and 417), Hypertension, [place], Cardiovascular Problems Psychological: No history of: Anxiety Disorders, Behavior Problems, Bipolar Disorder Neurology: History of: Migraine No history of: Brain Aneurysm, Cerebral Hemorrhage, Cerebrovascular Accident , Cerebral Palsy, Dementia, Seizures Endocrine: History of: Diabetes Mellitus (IDDM) No history of: Thyroid Disorder, Endocrine Problems Respiratory: History of: Pneumonia, Respiratory Problems (wears o2 at night) No history of: Obstructive Sleep Apnea, Pulmonary Embolism Renal: No history of: Renal (Kidney) Cancer, Dialysis, Renal Failure, Renal Problems Genitourinary: No history of: Bladder Problem, Kidney Stones, Prostate Problems, Recurring Urinary Tract Infections, Genitourinary Cancer, Problems Gastrointestinal: History of: GERD, Hemorrhoids Musculoskeletal: 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 Vinay Shipley), Back/ Neck Problems, Musculoskeletal Problems (weak and debilitated with osteoarthritis) Hematology: History of: Anemia No history of: Blood Transfusion Reaction - Surgical History Cardiac Surgeries: Sugical HX of: Cardiac Catheterization (07/[address] Weiss) Thoracic Surgeries: Patient denies;: Kidney (Renal Surgery), Lithotripsy, Nephrectomy, Organ Transplant, Lobectomy Neurologic Surgeries: Surgical HX of: Neurologic Surgery Patient denies: Brain Aneurysm, Cerebral Hemorrhage HEENT Surgeries: Patient denies: Eye Surgery, Thyroid Surgery, Tonsilectomy & Adenoidectomy Abdominal Surgeries: Surgical HX of: Abdominal Surgery, Appendectomy, Hernia Repair Patient denies: Colonoscopy, Gastric Bypass Surgery, EGD Reproductive Surgeries: Patient denies;: Cystoscopy, Genitourinary Surgery, Prostate Surgery - Family History Family History: Reports;: Family Diabetes (mom) - Social History Smoking Status: Former smoker Frequency of Alcohol Use: None Type of Drug Use: None Exam Physical Examination: GENERAL: Thin elderly black male in no acute distress. HEENT: Normocephalic. No trauma. Moist mucous membranes. EOMI. PERRLA. ENT NML NECK: Supple. No adenopathy. CARDIAC: Regular. No murmurs. Heart rate 78 CHEST: Clear to auscultation. No respiratory distress. O2 sat 99% ABDOMEN: Soft. Diffusely tender with hyperactive bowel sounds. EXTREMITIES: No trauma. Normal ROM. No pedal edema. SKIN: No diaphoresis. No rash. NEURO: Alert. No focal deficits. Vital Signs: Vital Signs Temperature 98.5 F 09/24/16 23:00 Pulse Rate 78 09/24/16 23:00 Respiratory Rate 18 09/24/16 23:00 Blood Pressure 169/96 09/24/16 23:00 O2 Sat by Pulse Oximetry 99 09/24/16 22:52 Course - Reevaluation(s) Reevaluation #1: Discussed with patient, no significant pathologic findings noted. Have advised him he has a viral gastroenteritis. We will treat accordingly. Results - Labs CBC & BMP: 09/24/16 23:33 09/24/16 23:33 - Impressions EKG: Sinus rhythm at 76 with normal HI interval and QRS duration. Old inferior [place]. Nonspecific ST changes. No acute injury pattern noted. - Diagnostic Findings Procedure: Abdominal x-ray: image reviewed by me, report reviewed by me ( Nonspecific gas and feces), Chest x-ray: image reviewed by me, report reviewed by me (Evidence of COPD with scarring and interval improvement since previous chest x-ray) Disposition Clinical Impression: Gastroenteritis Case discussed with: patient Disposition: Disch To Home/Self Care Condition: Stable Instructions: Gastroenteritis (ED) Additional Instructions: Clear liquids only for the next 24 hours. This would include soup, cereal, pudding, and Jell-O. Take prescriptions per instructions. Prescriptions: Metoclopramide Tab [Reglan Tab] 5 mg PO ACHS #20 tablet Promethazine Tab [Phenergan Tab] 25 mg PO Q6H #12 tablet Time of Disposition: 01:08
[2016-09-24 23:44] LABS: Basophils % 0.3 % (0.0-0.8); Hematocrit 41.2 VOL% (42.0-52.0); Hemoglobin 12.8 GM/DL (14.0-18.0); Immature Granulocytes % 0.3 %; Immature Granulocytes Absolute 0.01 #; Lymphocytes % 24.9 % (21.2-54.2); Mean Corpuscular HGB Conc 31.1 GM/DL (32-36); Mean Corpuscular Hemoglobin 26 PG (27-34); Mean Corpuscular Volume 84.6 FL (87-102); Mean Platelet Volume 9.8 FL (9.6-12.0); Monocytes # 0.2 10*3/uL (0.11-0.8); Monocytes % 5.8 % (1.7-12.7); NRBC # 0.02 10*3/uL; Neutrophils # 2.7 10*3/uL (1.4-7.4); Neutrophils % 67.7 % (38.7-73.9); Platelet Count 150 T/CUMM (130-400); Red Blood Count 4.87 MC/CUMM (3.8-5.5); Red Cell Distribution Width 19.9 % (9.3-17.3)
[2016-09-24] MEDS ORDERED: PANTOPRAZOLE 40 MG VIAL IV ONE (23:48)
[2016-09-24] MEDS ORDERED: METOCLOPRAMIDE 10 MG/2 ML VIAL ONE (23:49)
[2016-09-24] MEDS ORDERED: ONDANSETRON 4 MG/2 ML VIAL ONE (23:49)
[2016-09-25 00:07] LABS: Albumin 2.2 G/DL (3.4-5.0); Bilirubin,Total 0.7 MG/DL (0.2-1.0); Calcium 8.1 MG/DL (8.5-10.1); Osmolality,Calculated 293.8 MOS/KG (273-304); Potassium 3.8 MMOL/L (3.5-5.1); Total Protein 7.5 G/DL (6.4-8.3)
[2016-09-25 00:09] LABS: Lactic Acid 1.9 MMOL/L (0.4-2.0)
[2016-09-25 00:49] LABS: Platelet Estimate Normal; Polychromasia Few
[2016-09-25] MEDS ORDERED: traZODone 50 MG TABLET PO PRN (02:38)
[2016-09-25] MEDS ORDERED: SKIN HEALING OINT (AQUAPHOR) 50 GM TUBE TOP PRN (02:38)
[2016-09-25] MEDS ORDERED: ACETAMINOPHEN 325 MG TABLET PO PRN (02:40)
[2016-09-25] MEDS ORDERED: BISACODYL 5 MG TABLET PO PRN (02:40)
--- NOTE | 2016-09-25 02:54 | Hospitalist History & Physical ---
Assessment and Plan - Time spent with patient Time spent with patient: Greater than 30 minutes (1) Intractable nausea and vomiting Status: Acute Assessment and plan: Admit to hospitalist service. Follow-up CT abdomen and pelvis to rule out stone. Antiemetics and IV fluids ordered. Sliding scale insulin with Accu-Cheks. Etiology is unclear at this time. Current Visit: Yes (2) Hypertension Status: Chronic Assessment and plan: Continue home medications. Hold diuretics Current Visit: Yes Qualifiers: Hypertension type: essential hypertension Qualified Code(s): I10 - Essential (primary) hypertension (3) Diabetes mellitus Status: Chronic Assessment and plan: Sliding scale insulin and Accu-Cheks. Check hemoglobin A1c Current Visit: Yes Qualifiers: Diabetes mellitus type: type 2 Diabetes mellitus complication status: with circulatory complication Diabetes mellitus complication detail: with other circulatory complications Diabetes mellitus usp insulin use: with usp use Qualified Code(s): E11.59 - Type 2 diabetes mellitus with other circulatory complications; Z79.4 - detention (current) use of insulin History of Present Illness Chief complaint: Nausea, vomiting, abdominal cramping History of present illness: Mr. Marcial is a 76 year old male with complaints of abrupt onset of nausea, vomiting, and abdominal cramping approximately 12 hours ago. He denies chills, fever, dysuria, urgency, heartburn, belching, family members at home with same, or intake of tainted food or beverage. Currently presents holding an emesis bag nauseated but in no acute medical distress. He feels weak and is uncomfortable. He reports lower abdominal pain. Normal BM yesterday. No blood in vomit or stool. Denies diarrhea. He is unable to keep anything down. He is being admitted for IVF and ant-emetics as well as follow up with GI. a CT abd/ pelvis w/o contrast is pending. Home Medications Medication Instructions Recorded Confirmed Type Clopidogrel Bisulfate [Clopidogrel] 75 mg PO DAILY 02/07/16 08/17/16 History Pantoprazole Tab [Protonix Tab] 40 mg PO DAILY 02/07/16 08/17/16 History Ranolazine [Ranexa] 500 mg PO BID #60 tablet 07/15/16 08/17/16 Rx Skin Healing Oint (Aquaphor) 1 applic TOP PRN PRN #0 applic 08/07/16 08/17/16 Rx [Aquaphor] Tamsulosin [Flomax] 0.4 mg PO DAILY capsule 08/07/16 08/17/16 Rx traZODone [Desyrel] 50 mg PO BEDTIME PRN #0 tablet 08/07/16 08/17/16 Rx Nystatin Liquid [Mycostatin Oral 500,000 unit SWISH/SWAL QID 08/15/16 08/17/16 History Susp] Tramadol HCl [Tramadol Tab] 50 mg PO Q6H PRN 08/15/16 08/17/16 History Aspirin EC Tab 81 mg PO DAILY 08/17/16 08/17/16 History Atorvastatin [Lipitor] 40 mg PO DAILY 08/17/16 08/17/16 History Carvedilol [Coreg] 25 mg PO BID 08/17/16 08/17/16 History Furosemide Tab [Lasix Tab] 40 mg PO DAILY 08/17/16 08/17/16 History HYDROcodone/ACETAMIN 10-325 [[place] 1 tablet PO Q6H PRN #30 08/17/16 08/17/16 Rx 10-325] Magnesium Oxide 400 mg PO BID 08/17/16 08/17/16 History hydrALAZINE TAB [Apresoline Tab] 10 mg PO TID 08/17/16 08/17/16 History Metoclopramide Tab [Reglan Tab] 5 mg PO ACHS #20 tablet 09/25/16 Rx Promethazine Tab [Phenergan Tab] 25 mg PO Q6H #12 tablet 09/25/16 Rx Allergies Allergy/AdvReac Type Severity Reaction Status Date / Time Sulfa (Sulfonamide Allergy HIVES Verified 08/01/16 14:58 Antibiotics) Medical,Surgical,& Family Hx - Medical History Cardio: History of: CHF (EF 40% last month the cath), CAD (PCI of the LAD at [place] with diffuse small vessel disease and 417), Hypertension, GA, Cardiovascular Problems Psychological: No history of: Anxiety Disorders, Behavior Problems, Bipolar Disorder Neurology: History of: Migraine No history of: Brain Aneurysm, Cerebral Hemorrhage, Cerebrovascular Accident , Cerebral Palsy, Dementia, Seizures Endocrine: History of: Diabetes Mellitus (IDDM) No history of: Thyroid Disorder, Endocrine Problems Respiratory: History of: Pneumonia, Respiratory Problems (wears o2 at night) No history of: Obstructive Sleep Apnea, Pulmonary Embolism Renal: No history of: Renal (Kidney) Cancer, Dialysis, Renal Failure, Renal Problems Genitourinary: No history of: Bladder Problem, Kidney Stones, Prostate Problems, Recurring Urinary Tract Infections, Genitourinary Cancer, Problems Gastrointestinal: History of: GERD, Hemorrhoids Musculoskeletal: 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 Vinay Shipley), Back/ Neck Problems, Musculoskeletal Problems (weak and debilitated with osteoarthritis) Hematology: History of: Anemia No history of: Blood Transfusion Reaction - Surgical History Cardiac Surgeries: Sugical HX of: Cardiac Catheterization (07/[address] Weiss) Thoracic Surgeries: Patient denies;: Kidney (Renal Surgery), Lithotripsy, Nephrectomy, Organ Transplant, Lobectomy Neurologic Surgeries: Surgical HX of: Neurologic Surgery Patient denies: Brain Aneurysm, Cerebral Hemorrhage HEENT Surgeries: Patient denies: Eye Surgery, Thyroid Surgery, Tonsilectomy & Adenoidectomy Abdominal Surgeries: Surgical HX of: Abdominal Surgery, Appendectomy, Hernia Repair Patient denies: Colonoscopy, Gastric Bypass Surgery, EGD Reproductive Surgeries: Patient denies;: Cystoscopy, Genitourinary Surgery, Prostate Surgery - Family History Family History: Reports;: Family Diabetes (mom), Family Hypertension - Social History Smoking Status: Former smoker Have you smoked in the last 12 months: No Frequency of Alcohol Use: None Type of Drug Use: None Marital Status: Single Lives With:: Alone Functional capacity: uses cane/walker 12 point system: reviewed and no additional remarkable complaints except as stated - Gastrointestinal Gastrointestinal: Present: dyspepsia, nausea, vomiting Exam - Constitutional Vitals: Period Temp Pulse Resp BP Sys/Zapien Pulse Ox Last 24 Hr 98.5 F-98.5 F 78-78 18-18 169-169/96-96 99 Exam: Constitutional System: Mild distress. No tremulousness. Ill-appearing. Elderly and frail. Head: Normocephalic, atraumatic. Ears, Nose and Throat System: No pain or tenderness. No epistaxis or discharge Eyes System: Pupils equal, round, and reactive. Extraocular muscles intact. Neck: Supple, without adenopathy, No jugular venous distention. No thyromegaly, neck mass, or prior surgery apparent. Respiratory System: Chest clear to auscultation. Cardiovascular System: Heart with regular rate and rhythm. No murmur. GI System: Abdomen soft, mildly tender in the lower part of the abdomen. Normo active bowel sounds present. Musculoskeletal System: limbs with no pedal edema. Chronic stasis changes noted in bilateral lower extremities. 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 Chronic wound noted. Neurological System: No discernable sensory deficit. No aphasia Psychiatric System: Conversation is rational Results - Labs CBC & BMP: 09/24/16 23:33 09/24/16 23:33 Lab Results: I have reviewed the past 24 hour labs - Diagnostic Findings Procedure: Chest x-ray: image reviewed by me, KUB x-ray: image reviewed by me
[2016-09-25] MEDS ORDERED: hydrALAZINE 20 MG/1 ML VIAL ONE (03:26)
[2016-09-25] MEDS ORDERED: hydrALAZINE 20 MG/1 ML VIAL IV STA (03:27)
[2016-09-25] MEDS ORDERED: hydrALAZINE 20 MG/1 ML VIAL IV PRN (03:32)
[2016-09-25 03:33] LABS: Apearance,Urine CLEAR (Clear); Bacteria,Urine Few /HPF (Few); Bilirubin,Urine Negative (Negative); Blood, Urine Moderate mg/dL (Negative); Glucose,Urine (UA) Negative (Negative); Granular Casts,Urine 10 /LPF (0-1); Hyaline Casts,Urine 14 /LPF (0-3); Ketones,Urine 5 mg/dL (Negative); Mucus,Urine Occasional /LPF (Occasional); Nitrite,Urine Negative (Negative); Protein,Urine >=500 MG/DL; RBC,Urine <1 /HPF (0-4); Squamous Epithelial Cell,Urine Occasional /HPF (0-10); Urine Color Yellow (Yellow); Urine Specific Gravity 1.018 (1.001-1.035); Urine Urobilinogen < 2.0 EU/DL (0.2-1.0)
[2016-09-25] MEDS ORDERED: DEXTROSE 50% 25 GM/50 ML VIAL IV PRN (03:41)
[2016-09-25] MEDS ORDERED: GLUCAGON 1 MG VIAL IM PRN (03:41)
[2016-09-25] MEDS: LEVOFLOXACIN INJ 500 MG in PREMIX 1 EACH IV SCH (04:43)
[2016-09-25] MEDS: PROMETHAZINE 25 MG/1 ML VIAL IM PRN ×2 (04:44→11:10)
--- NOTE | 2016-09-25 06:03 | XRay Report ---
Exam: XR abdomen 2V Date: 09/24/2016 11:07 PM Comparison: None Indication: Abdominal pain Findings: Lung bases demonstrate with minimal scarring present. The liver reveals some hepatic granuloma changes. Less prominent findings are present over the spleen. Renal contours are partially obscured The bony structures are intact No obvious pneumoperitoneum Nonspecific GI pattern. Scattered fecal debris in the left colon. Impression: 1. Hepatic granuloma changes 2. Nonspecific GI pattern. PROCEDURE INTERPRETED AT [facility] DEPARTMENT OF RADIOLOGY Final Report Signed by: Dr. Kevin Rick
--- NOTE | 2016-09-25 06:04 | XRay Report ---
Exam: XR chest 1V portable Date: 09/24/2016 11:07 PM Indication: Abdominal pain Comparison: 08/15/2016 Technical: AP portable Findings: Cardiomegaly is present with low volume effusions. Mild interstitial thickening there is improved aeration when compared to the previous exam bilaterally however some mild residual alveolar densities and low volume effusions are present. External cardiac leads are present. Mediastinum is intact. Impression: 1. Overall improved aeration however a component of mild CHF is suspected with underlying cardiomegaly and low volume effusions PROCEDURE INTERPRETED AT [facility] DEPARTMENT OF RADIOLOGY Final Report Signed by: Dr. Kevin Rick
--- NOTE | 2016-09-25 06:28 | CT Report ---
Exam: CT abdomen pelvis wo con Date: 09/25/2016 2:47 AM Comparison: None Indication: Pain lower abdominal pain Total DLP: 439.1 mGy*cm Technical: Images were obtained from the lung bases to the iliac crest continuation through the pelvis without intravenous contrast with 350 with axial sagittal coronal imaging available for review. Dose reduction was performed with decreasing kv and mA and automated exposure Findings: The study was initially reviewed by [facility]. Lung bases: Bilateral pleural effusions and compressive atelectatic changes are present. Mild cardiac enlargement is noted. Liver and Spleen: Hepatic granuloma changes present. Spleen is unremarkable Gallbladder and Pancreas: Gallbladder is contracted partially. The pancreas is unremarkable. Adrenals: Unremarkable Kidneys: The kidneys reveal no obvious obstruction or stones or mass in the noncontrast study. Stomach: Incomplete distended with air-fluid and debris Retroperitoneum: No enlarged lymph nodes. Aorta and IVC: Vascular plaque in aorta iliac vessels. Aorta and IVC without contrast or not otherwise evaluated. Bowel and Mesentery: Moderate fecal debris present. Some mild stranding in the mesentery without pneumoperitoneum or free fluid present. Pelvis: Bladder: Incompletely distended without contrast Fluid: No free fluid identified. Lymph nodes: Small nodes in the inguinal regions. Pelvic organs: Prostate gland is mildly prominent Osseous structures: No suspicious appearing osseous abnormalities noted. Impression: 1. Bilateral basal pleural effusions and component of CHF suspected. 2. No acute intra-abdominal pathology present. PROCEDURE INTERPRETED AT [facility] DEPARTMENT OF RADIOLOGY Final Report Signed by: Dr. Kevin Rick
--- NOTE | 2016-09-25 07:35 | EKG Report ---
Stationary ECG Study [facility] ER Test Date: 09/25/2016 12:07:59 AM Pat Name: DAGMAR PURCELL Department: Room: 227 Gender: M Hydropulper: : 1940 Requested by: Maninder Ojeda Order Number: [id number] Reading MD: GARCÍA STEIN Intervals [place] Rate: 76 P: 81 TX: 127 QRS: 49 QRSD: 95 T: 92 QT: 424 QTc: 455 Interpretive Statements SINUS RHYTHM LOW QRS VOLTAGE IN PRECORDIAL LEADS POSSIBLE INFERIOR MYOCARDIAL INFARCTION, PROBABLY OLD MODERATE T-WAVE ABNORMALITY, CONSIDER ANTERIOR ISCHEMIA Electronically Signed On 09-25-16 12:04:05 CDT by GARCÍA STEIN [email or web address]
[2016-09-25] MEDS: ONDANSETRON 4 MG/2 ML VIAL IV PRN (08:03)
[2016-09-25] MEDS: ENOXAPARIN 40 MG/0.4 ML SYRINGE SUBCUT SCH (09:20)
[2016-09-25] MEDS: hydrALAZINE 10 MG TABLET PO SCH ×3 (09:20→20:42)
[2016-09-25] MEDS: CARVEDILOL 25 MG TABLET PO SCH ×2 (09:20→20:41)
[2016-09-25] MEDS: TAMSULOSIN 0.4 MG CAPSULE PO SCH (09:20)
[2016-09-25] MEDS: RANOLAZINE 500 MG TABLET PO SCH ×2 (09:20→20:42)
[2016-09-25] MEDS: INSULIN LISPRO 100 UNIT/ML SUBCUT SCH ×4 (09:20→23:43)
[2016-09-25] MEDS: ATORVASTATIN 40 MG TABLET PO SCH (09:20)
[2016-09-25] MEDS: PANTOPRAZOLE 40 MG TABLET PO SCH (09:21)
[2016-09-25] MEDS: CLOPIDOGREL 75 MG TABLET PO SCH (09:21)
[2016-09-25] MEDS: MAGNESIUM OXIDE 400 MG TABLET PO SCH ×2 (09:21→20:42)
[2016-09-25] MEDS: ASPIRIN EC 81 MG TABLET PO SCH (09:21)
--- NOTE | 2016-09-25 09:29 | Hospitalist Progress Note ---
Assessment and Plan (1) Intractable nausea and vomiting Status: Acute Assessment and plan: Impression: 1. Nausea and vomiting, likely gastroenteritis 2. Type II DM 3. Coronary disease with chronic systolic congestive heart failure Plan: Symptomatic treatment including IV fluids and GI rest. Reconcile home medications. Hope to discharge home once his symptoms improve. I do not see any need for surgical or GI evaluation at this time, as I suspect that this is going to be a self-limited illness. This note was completed using [employer] voice recognition software. There may be highway engineering technician errors as a result. Current Visit: Yes Qualifiers: Vomiting type: unspecified Qualified Code(s): R11.2 - Nausea with vomiting , unspecified Hospitalist: Subjective Interval history: Follow-up nausea and vomiting. The patient says that he is still sick. He continues with nausea. He has not had any lower GI symptoms. He has not had any GI bleeding from above or below. CT scan did not show any pathology or etiology of the symptoms. Exam - Constitutional Vitals: Period Temp Pulse Resp BP Sys/Zapien Pulse Ox Last 24 Hr 97.2 F-98.5 F 78-83 18-22 159-174/72-96 95-100 Vital signs are noted above. Heart is regular with tones and no murmur. Lungs are clear with no rales or wheezes. Abdomen is soft with some moderate tenderness to palpation and positive bowel sounds. He is awake and alert, but appears ill. Results - Labs CBC & BMP: 09/24/16 23:33 09/24/16 23:33 Lab Results: I have reviewed the past 24 hour labs Specialty Discharge - Follow Up or Referrals
[2016-09-25] MEDS: NITROGLYCERIN SL 0.4 MG TABLET SL PRN (10:51)
[2016-09-25] MEDS ORDERED: NITROGLYCERIN SL 0.4 MG TABLET SL ONE (10:53)
--- NOTE | 2016-09-25 10:58 | EKG Report ---
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
[2016-09-25] MEDS: traMADol 50 MG TABLET PO PRN (11:09)
[2016-09-25] MEDS: DESITIN 4OZ/NYSTATIN 15 GRAM MIXTURE PASTE TOP SCH ×2 (11:10→20:42)
[2016-09-25] MEDS ORDERED: FUROSEMIDE 40 MG/4 ML VIAL IV ONE (11:40)
[2016-09-26] MEDS ORDERED: FUROSEMIDE 40 MG/4 ML VIAL IV ONE (02:00)
--- NOTE | 2016-09-26 02:05 | Event Note ---
I was called by the patient's nurse for complaints of shortness of breath. The chart was reviewed. The patient received a dose of Lasix earlier today and had approximately 2100 cc of urine output. His BNP was markedly elevated. He has a history of congestive heart failure, systolic type with an ejection fraction of 35% documented on an echo from January 2016. Repeat chest x-ray tonight shows bilateral pulmonary congestion and evidence of acute pulmonary edema. An additional dose of 40 mg of IV Lasix has been ordered and his daily oral Lasix dose has been resumed to start tomorrow morning. The patient is not hypoxic but is symptomatic. He will be monitored closely. He is not receiving any IV fluids at this time. His nausea and vomiting have resolved. Vital signs reviewed. No fever. Heart rate controlled. Oxygen saturation 98% . The chest x-ray is an expiratory film. However it is significantly different than the film obtained 24 hours ago.
[2016-09-26 02:46] LABS: Hematocrit 27.7 VOL% (42.0-52.0); Hemoglobin 8.8 GM/DL (14.0-18.0); Immature Granulocytes % 1.1 %; Immature Granulocytes Absolute 0.07 #; Lymphocytes % 14.8 % (21.2-54.2); Mean Corpuscular HGB Conc 31.8 GM/DL (32-36); Mean Corpuscular Hemoglobin 27 PG (27-34); Mean Corpuscular Volume 83.9 FL (87-102); Mean Platelet Volume 10.1 FL (9.6-12.0); Monocytes # 0.4 10*3/uL (0.11-0.8); Monocytes % 5.6 % (1.7-12.7); NRBC # 0.03 10*3/uL; Neutrophils % 78.5 % (38.7-73.9); Platelet Count 201 T/CUMM (130-400); Red Cell Distribution Width 19.7 % (9.3-17.3); White Blood Count 6.4 T/CUMM (4-12)
[2016-09-26 03:15] LABS: Magnesium 1.9 MG/DL (1.8-2.4); Osmolality,Calculated 291.8 MOS/KG (273-304)
[2016-09-26] MEDS ORDERED: ASPIRIN CHEW 81 MG TABLET PO ONE (05:26)
[2016-09-26] MEDS ORDERED: NITROGLYCERIN SL 0.4 MG TABLET SL PRN (05:26)
--- NOTE | 2016-09-26 05:30 | EKG Report ---
Stationary ECG Study 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
[2016-09-26] MEDS ORDERED: ASPIRIN 325 MG TABLET ONE (05:31)
[2016-09-26] MEDS: NITROGLYCERIN SL 0.4 MG TABLET SL PRN (05:35)
--- NOTE | 2016-09-26 08:36 | Hospitalist Progress Note ---
Assessment and Plan (1) Intractable nausea and vomiting Status: Acute Assessment and plan: Impression: 1. Acute on chronic systolic congestive heart failure. Ejection fraction was about 35% on an echo last year. Enzymes do not reveal any evidence of myocardial cell injury. 2. Nausea and vomiting, possible gastroenteritis; this appears to be improving 3. Type II DM 4. Anemia, etiology not certain. History is not consistent with a GI bleed. Plan: Advance diet. Recheck CBC including reticulocyte count. With the presenting symptoms of vomiting, he may need GI evaluation to see if he has a GI source of the anemia. Adjust medications for CHF; continue diuretics and repeat chest x- ray in the morning. This note was completed using [email or web address] voice recognition software. There may be incising machine operator errors as a result. Current Visit: Yes Qualifiers: Vomiting type: unspecified Qualified Code(s): R11.2 - Nausea with vomiting , unspecified Hospitalist: Subjective Interval history: Follow-up acute on chronic systolic congestive heart failure. Yesterday afternoon, the patient had an episode of some chest discomfort. We did an EKG that did not show any changes compared to prior tracings. He also complained of some dyspnea. We gave him some Lasix. Later on last night, he had an episode of dyspnea again. Chest x-ray showed pulmonary edema, and he was given more diuretics. This morning, he feels better. He says that his dyspnea has improved. He is on liquids, and would like to try some solid food. He has not had any chest pain. I note that his hemoglobin has dropped about 4 g. He is not aware of any bleeding from the GI or tract. He has not had any black stools. He has not had any significant abdominal pain. Exam - Constitutional Vitals: Period Temp Pulse Resp BP Sys/Zapien Pulse Ox Last 24 Hr 97.0 F-97.6 F 63-73 18-24 148-161/78-98 95-97 Vital signs are noted above. Heart is regular with extremely distant tones. I do not hear a gallop. He has a few rales in the chest, but is not moving much air. He does not have much in the way of any significant peripheral edema. He is awake and alert. Results - Labs CBC & BMP: 09/26/16 02:25 09/26/16 02:25 Lab Results: I have reviewed the past 24 hour labs (Hemoglobin has dropped 4 g.) - Diagnostic Findings Procedure: Chest x-ray: image reviewed by me (Pulmonary vascular congestion, worse than admission.) Specialty Discharge - Follow Up or Referrals
[2016-09-26] MEDS ORDERED: FUROSEMIDE 40 MG TABLET PO SCH (09:00)
[2016-09-26] MEDS: INSULIN LISPRO 100 UNIT/ML SUBCUT SCH ×4 (09:24→21:22)
[2016-09-26] MEDS: ATORVASTATIN 40 MG TABLET PO SCH (09:25)
[2016-09-26] MEDS: CARVEDILOL 25 MG TABLET PO SCH ×2 (09:25→21:22)
[2016-09-26] MEDS: TAMSULOSIN 0.4 MG CAPSULE PO SCH (09:25)
[2016-09-26] MEDS: RANOLAZINE 500 MG TABLET PO SCH ×2 (09:25→21:22)
[2016-09-26] MEDS: ASPIRIN EC 81 MG TABLET PO SCH (09:25)
[2016-09-26] MEDS: MAGNESIUM OXIDE 400 MG TABLET PO SCH ×2 (09:25→21:22)
[2016-09-26] MEDS: PANTOPRAZOLE 40 MG TABLET PO SCH (09:25)
[2016-09-26] MEDS: CLOPIDOGREL 75 MG TABLET PO SCH (09:25)
[2016-09-26] MEDS: hydrALAZINE 10 MG TABLET PO SCH ×3 (09:25→21:22)
[2016-09-26] MEDS: DESITIN 4OZ/NYSTATIN 15 GRAM MIXTURE PASTE TOP SCH ×2 (09:26→21:25)
[2016-09-26] MEDS: ENOXAPARIN 40 MG/0.4 ML SYRINGE SUBCUT SCH (09:26)
[2016-09-26] MEDS: LEVOFLOXACIN INJ 500 MG in PREMIX 1 EACH IV SCH (09:26)
--- NOTE | 2016-09-26 09:26 | XRay Report ---
History: Shortness of breath Date: 09/26/2016 Study: Chest x-ray AP portable Comparison exam: September 24, 2016 There is cardiomegaly and pulmonary vascular engorgement. The mediastinal contours are unchanged. There is patchy and hazy increasing pulmonary edema in either mid to lower lung compared to the previous study. There is mild to moderate right and mild left pleural effusion which is worsened. Osseous structures are unchanged. Impression: Cardiomegaly and evidence of worsening CHF with pulmonary edema and bilateral pleural effusion PROCEDURE INTERPRETED AT [facility] DEPARTMENT OF RADIOLOGY Final Report Signed by: Dr. Juliet Baltazar
[2016-09-26] MEDS ORDERED: SODIUM CHLORIDE 0.9% 500 ML IV ONE (14:54)
[2016-09-26 15:24] LABS: Hematocrit 26.9 VOL% (42.0-52.0); Hemoglobin 8.5 GM/DL (14.0-18.0)
--- NOTE | 2016-09-26 15:57 | Event Note ---
The patient became hypotensive this afternoon, after his diuretics were increased. I checked hemoglobin just to be sure that it was stable, and it was essentially the same as it was earlier today. He says that he feels okay, but is a little lightheaded. I am going to give him a bolus of saline, and will watch his blood pressure. We may need to adjust or discontinue some of his antihypertensives or CHF medications. Currently, he is awake and conversant. He denies any chest pain.
[2016-09-26] MEDS: ONDANSETRON 4 MG/2 ML VIAL IV PRN (18:20)
[2016-09-26] MEDS: FUROSEMIDE 40 MG TABLET PO SCH (18:53)
[2016-09-27] MEDS: PROMETHAZINE 25 MG TABLET PO PRN ×2 (03:04→22:51)
[2016-09-27 04:31] LABS: Eosinophils % 0.2 % (0.00-10.9); Hematocrit 26.7 VOL% (42.0-52.0); Hemoglobin 8.4 GM/DL (14.0-18.0); Immature Granulocytes % 0.5 %; Immature Granulocytes Absolute 0.03 #; Lymphocytes # 0.9 10*3/uL (1.4-4.0); Lymphocytes % 16.2 % (21.2-54.2); Mean Corpuscular HGB Conc 31.5 GM/DL (32-36); Mean Corpuscular Hemoglobin 27 PG (27-34); Mean Platelet Volume 10.5 FL (9.6-12.0); Monocytes # 0.5 10*3/uL (0.11-0.8); Monocytes % 8.1 % (1.7-12.7); NRBC # 0.04 10*3/uL; Neutrophils # 4.4 10*3/uL (1.4-7.4); Platelet Count 186 T/CUMM (130-400); Red Blood Count 3.14 MC/CUMM (3.8-5.5); Red Cell Distribution Width 20.1 % (9.3-17.3); White Blood Count 5.8 T/CUMM (4-12)
[2016-09-27 05:04] LABS: Calcium 8.3 MG/DL (8.5-10.1); Osmolality,Calculated 291.1 MOS/KG (273-304); Potassium 3.8 MMOL/L (3.5-5.1)
--- NOTE | 2016-09-27 08:58 | ECHO Report ---
AniketJagdeep Exam Date: 09/26/2016 15:14 Referring Physician: Technologist: Cathy Puga RDCS Age: 76 Ht (in): 74 Wt (lb): 190 Gender: M Exam Location: [facility] Echo Indications: Acute on chronic systolic (congestive) heart failure, BP: 98 / 56 HR: 58 Rhythm: Sinus Technical Quality: Fair IMPRESSIONS Moderate to severely reduced LV systolic function with regional wall motion as described below, ejection fraction 35%. Grade 2/4 diastolic dysfunction. Mild concentric left ventricular hypertrophy. Right-sided chamber enlargement. Mild to moderate mitral regurgitation. Moderate to severe tricuspid regurgitation. Mild pulmonic regurgitation. Trivial pericardial effusion. Severe pulmonary hypertension, pulmonary artery pressure estimated at 71 mmHg. A pleural effusion is incidentally noted. MEASUREMENTS (Male / Female) Normal Values 2D ECHO LV Diastolic Diameter PLAX 4.8 cm 4.2 - 5.9 / 3.9 - 5.3 cm LV Systolic Diameter PLAX 3.0 cm LV Fractional Shortening PLAX 38.3 % IVS Diastolic Thickness 1.3 cm 0.6 - 1.0 / 0.6 - 0.9 cm LVPW Diastolic Thickness 1.3 cm 0.6 - 1.0 / 0.6 - 0.9 cm RV Internal Dim ED PLAX 3.5 cm Aortic Root Diameter 3.3 cm LA Systolic Diameter LX 3.8 cm 3.0 - 4.0 / 2.7 - 3.8 cm DOPPLER TR Peak Velocity 389.0 cm/s TR Peak Gradient 60.5 mmHg FINDINGS Left Ventricle Normal left ventricular cavity size. Mild left ventricular hypertrophy. Left ventricular ejection fraction is estimated at 35 %. The apex, distal anterior, and mid to distal inferior murcia appear to be hypokinetic. There is grade 2/4 diastolic dysfunction consistent with elevated LV filling pressures. Right Ventricle The right ventricle is dilated. Right Atrium Moderately increased right atrial size. Left Atrium Normal left atrial size. Mitral Valve Mildly thickened mitral valve. Mild-moderate mitral valve regurgitation. Aortic Valve Morphologically normal aortic valve without significant sclerosis or stenosis. There is no aortic regurgitation. Tricuspid Valve Morphologically normal tricuspid valve. Moderate to severe tricuspid valve regurgitation. Tricuspid regurgitation velocities suggest a PAP of 71 mmHg. Pulmonic Valve Morphologically normal pulmonic valve. Mild pulmonary valve regurgitation. Pericardium Trivial pericardial effusion. Aorta Normal ascending aorta dimension. Teodora Petersen MD (Electronically Signed) Final Date: 27 September 2016 08:57
--- NOTE | 2016-09-27 09:33 | Hospitalist Progress Note ---
Assessment and Plan (1) Intractable nausea and vomiting Status: Acute Assessment and plan: Impression: 1. Acute on chronic systolic congestive heart failure, improving. 2. Abdominal pain with nausea and vomiting, possible gastroenteritis; this appears to be improving 3. Type II DM 4. Anemia, etiology not certain. History is not consistent with a GI bleed. Plan: Advance diet. Recheck CBC including reticulocyte count. With the presenting symptoms of vomiting, he may need GI evaluation to see if he has a GI source of the anemia. Continue current medical regimen for heart failure. This note was completed using [employer] voice recognition software. There may be professor of theology errors as a result. Current Visit: Yes Qualifiers: Vomiting type: unspecified Qualified Code(s): R11.2 - Nausea with vomiting , unspecified Hospitalist: Subjective Interval history: Follow-up acute on chronic systolic congestive heart failure. The patient continues to have some upper epigastric abdominal pain. He had an improvement in blood pressure with the 500 mL bolus of normal saline. He denies any dyspnea. He ate all of his breakfast. Exam - Constitutional Vitals: Period Temp Pulse Resp BP Sys/Zapien Pulse Ox Last 24 Hr 96.6 F-97.6 F 56-65 14-22 83-159/46-84 91-100 Vital signs are noted above. Heart is regular with distant tones. I do not hear murmur today. He is moving air fairly well. Abdomen shows some minimal tenderness in the midepigastrium with good bowel sounds. He does not have any significant peripheral edema. He is awake and alert Results - Labs CBC & BMP: 09/27/16 04:08 09/27/16 04:08 - Diagnostic Findings Procedure: Chest x-ray: image reviewed by me (Chest x-ray shows clearing of pulmonary vascular congestion compared to yesterday's film.) Specialty Discharge - Follow Up or Referrals
[2016-09-27] MEDS: INSULIN LISPRO 100 UNIT/ML SUBCUT SCH ×4 (09:38→21:53)
[2016-09-27] MEDS: MAGNESIUM OXIDE 400 MG TABLET PO SCH ×2 (09:39→20:36)
[2016-09-27] MEDS: ENOXAPARIN 40 MG/0.4 ML SYRINGE SUBCUT SCH (09:39)
[2016-09-27] MEDS: FUROSEMIDE 40 MG TABLET PO SCH ×2 (09:39→16:23)
[2016-09-27] MEDS: hydrALAZINE 10 MG TABLET PO SCH ×3 (09:39→20:42)
[2016-09-27] MEDS: CARVEDILOL 25 MG TABLET PO SCH ×2 (09:39→20:42)
[2016-09-27] MEDS: RANOLAZINE 500 MG TABLET PO SCH ×2 (09:40→20:42)
[2016-09-27] MEDS: traMADol 50 MG TABLET PO PRN (09:40)
[2016-09-27] MEDS: ATORVASTATIN 40 MG TABLET PO SCH (09:40)
[2016-09-27] MEDS: PANTOPRAZOLE 40 MG TABLET PO SCH (09:40)
[2016-09-27] MEDS: ASPIRIN EC 81 MG TABLET PO SCH (09:40)
[2016-09-27] MEDS: CLOPIDOGREL 75 MG TABLET PO SCH (09:40)
[2016-09-27] MEDS: TAMSULOSIN 0.4 MG CAPSULE PO SCH (09:40)
[2016-09-27] MEDS: LEVOFLOXACIN INJ 500 MG in PREMIX 1 EACH IV SCH (09:41)
[2016-09-27] MEDS: DESITIN 4OZ/NYSTATIN 15 GRAM MIXTURE PASTE TOP SCH ×2 (09:41→20:43)
--- NOTE | 2016-09-27 10:00 | XRay Report ---
History: Congestive heart failure Date: 09/27/2016 Study: Chest x-ray PA and lateral Comparison exam: 09/26/2016 There is mild cardiomegaly. The mediastinal contours are stable. There is improving pulmonary venous hypertension. There is considerably improved pulmonary edema. There is still some residual patchy and hazy edema in the lower lungs, right greater than left. There is mild bilateral pleural effusion, though this is also improved. The osseous structures are unchanged. Impression: Continued CHF, though there has been considerable improvement since the previous day PROCEDURE INTERPRETED AT [facility] DEPARTMENT OF RADIOLOGY Final Report Signed by: Dr. Juliet Baltazar
[2016-09-27] MEDS: NITROGLYCERIN SL 0.4 MG TABLET SL PRN (22:54)
[2016-09-27] MEDS ORDERED: AMPICILLIN 500 MG CAPSULE PO ONE (23:00)
[2016-09-28 05:59] LABS: Albumin 2.1 G/DL (3.4-5.0); Calcium 7.8 MG/DL (8.5-10.1); Osmolality,Calculated 289.1 MOS/KG (273-304); Phosphorous 3.2 MG/DL (2.5-4.9); Potassium 3.9 MMOL/L (3.5-5.1)
[2016-09-28] MEDS: INSULIN LISPRO 100 UNIT/ML SUBCUT SCH ×4 (08:00→20:58)
[2016-09-28] MEDS: RANOLAZINE 500 MG TABLET PO SCH ×2 (10:01→20:02)
[2016-09-28] MEDS: ENOXAPARIN 40 MG/0.4 ML SYRINGE SUBCUT SCH (10:01)
[2016-09-28] MEDS: ATORVASTATIN 40 MG TABLET PO SCH (10:02)
[2016-09-28] MEDS: CLOPIDOGREL 75 MG TABLET PO SCH (10:02)
[2016-09-28] MEDS: TAMSULOSIN 0.4 MG CAPSULE PO SCH (10:02)
[2016-09-28] MEDS: AMPICILLIN 500 MG CAPSULE PO SCH ×4 (10:02→20:02)
[2016-09-28] MEDS: PANTOPRAZOLE 40 MG TABLET PO SCH (10:02)
[2016-09-28] MEDS: hydrALAZINE 10 MG TABLET PO SCH ×3 (10:02→20:02)
[2016-09-28] MEDS: ASPIRIN EC 81 MG TABLET PO SCH (10:04)
[2016-09-28] MEDS: CARVEDILOL 25 MG TABLET PO SCH ×2 (10:04→20:02)
[2016-09-28] MEDS: FUROSEMIDE 40 MG TABLET PO SCH ×2 (10:04→16:39)
[2016-09-28] MEDS: MAGNESIUM OXIDE 400 MG TABLET PO SCH ×2 (10:04→20:02)
[2016-09-28] MEDS: DESITIN 4OZ/NYSTATIN 15 GRAM MIXTURE PASTE TOP SCH ×2 (10:14→20:04)
--- NOTE | 2016-09-28 10:53 | Physician Query Form ---
CLICK EDIT DOCUMENT TO SELECT QUERY ANSWER --> OK --> SIGN Padmini Calderon RN, CCDS Certified Clinical [employer] W) [phone] (f) [phone] [email or web address] PROVIDERS: Make your selection(s) from the choices in EACH section by typing an "x" and enter comments in the comment section. Please use your independent medical judgment in providing your response. This request does not imply that any particular answer is desired or expected. CLINICAL INDICATORS: (Providers should not edit this section) The medical record indicates that the patient was admitted with gastroenteritis , CHF, creatinine of 1.10 on the 1st that has increased to 1.60 on the 2nd, GFR of 93# that has dropped to 59 and the patient was given a bolus of IVF's. Clarify which of the following most accurately represents the patient's renal status: ( X ) Acute kidney injury (non-traumatic) ( ) Acute renal failure ( ) Acute renal failure with underlying Chronic Kidney Disease (CKD) - please provide stage below ( ) Acute renal failure with pathological renal lesion ( ) Acute renal failure with necrosis ( ) tubular ( ) medullary ( ) cortical ( ) CKD - please provide stage below ( ) End Stage Renal Disease ( ) Acute interstitial nephritis ( ) Hepatorenal syndrome ( ) Other, please specify: ( ) Clinically unable to determine Chronic Kidney Disease Stages Source: National Kidney Disease Foundation ( ) Stage I (eGFR > or = 90) ( ) Stage II (eGFR 60 - 89) ( ) Stage III (eGFR 30 - 59) ( ) Stage IV (eGFR 15 - 29) ( ) Stage V (eGFR < 15 or dialysis) COMMENTS: PLEASE ALSO DOCUMENT RESPONSE IN PROGRESS NOTES AND/OR DISCHARGE SUMMARY Use of terms such as suspected, likely, or probable (associated with a specific diagnosis that is being evaluated, monitored, or treated as if it exists) are acceptable and can be restated in the discharge summary if not ruled out. MTDD
--- NOTE | 2016-09-28 14:49 | Hospitalist Progress Note ---
Hospitalist: Subjective Interval history: Mr. Marcial is a 76 y/o male with a history of CAD, MO, DM, and CHF that was admitted for acute on chronic systolic CHF. Patient was on hospice prior to admission and would like to go back on hospice at discharge. Patient reports feeling better but is not back to baseline. Exam - Constitutional Vitals: Period Temp Pulse Resp BP Sys/Zapien Pulse Ox Last 24 Hr 97.3 F-97.7 F 62-94 16-24 92-172/55-94 95-100 General appearance: normal weight, other (ill appearing; wearing oxygen) - Head Head exam: Present: normal inspection - Eye Eye exam: Present: EOMI - Respiratory Respiratory exam: Present: decreased breath sounds, rales (bases) - Cardiovascular Cardiovascular exam: Present: regular rate and rhythm - GI/Abdominal GI/Abdominal exam: Present: normal bowel sounds, soft. 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
[2016-09-28] MEDS: PROMETHAZINE 25 MG TABLET PO PRN (20:02)
[2016-09-29] MEDS: INSULIN LISPRO 100 UNIT/ML SUBCUT SCH ×3 (07:30→17:45)
[2016-09-29] MEDS: ASPIRIN EC 81 MG TABLET PO SCH (09:33)
[2016-09-29] MEDS: TAMSULOSIN 0.4 MG CAPSULE PO SCH (09:33)
[2016-09-29] MEDS: MAGNESIUM OXIDE 400 MG TABLET PO SCH (09:33)
[2016-09-29] MEDS: CLOPIDOGREL 75 MG TABLET PO SCH (09:33)
[2016-09-29] MEDS: AMPICILLIN 500 MG CAPSULE PO SCH ×3 (09:37→17:35)
[2016-09-29] MEDS: FUROSEMIDE 40 MG TABLET PO SCH ×2 (09:37→17:46)
[2016-09-29] MEDS: RANOLAZINE 500 MG TABLET PO SCH (09:37)
[2016-09-29] MEDS: PANTOPRAZOLE 40 MG TABLET PO SCH (09:38)
[2016-09-29] MEDS: hydrALAZINE 10 MG TABLET PO SCH ×2 (09:38→14:06)
[2016-09-29] MEDS: ENOXAPARIN 40 MG/0.4 ML SYRINGE SUBCUT SCH (09:38)
[2016-09-29] MEDS: DESITIN 4OZ/NYSTATIN 15 GRAM MIXTURE PASTE TOP SCH (09:38)
[2016-09-29] MEDS: CARVEDILOL 25 MG TABLET PO SCH (09:38)
[2016-09-29] MEDS: ATORVASTATIN 40 MG TABLET PO SCH (09:40)
[2016-09-29] MEDS ORDERED: ALUMINUM/MAGNES/SIMETH MAX STR 30 ML UDCUP PO SCH (10:30)
--- NOTE | 2016-09-29 16:10 | Discharge Summary ---
<JoleneBlake - Last Filed: 09/29/16 16:53> Hospital Course - Hospital Course Hospital Course: Mr. Marcial is a 76 yr old black male patient with a history of gerd, htn, chf, cad, mi, and dm that presented to the ED on 09/25 with complaints of an abrupt onset of n/v and abdominal cramping. Pt. was admitted for further evaluation and treatment. Pt. was treated with IVF, anti-emetics, and GI rest. On 09/26 pt became short of breath. He was noted to have an elevated BNP and had received lasix. CXR was performed and was significantly different from previous film. It revealed bilateral pulmonary congestion and acute pulmonary edema. Pt. was treated with additional dosage of lasix. He improved slightly but became hypotensive later. Pt. was closely monitored. Issues with hypotension and abdominal pain resolved. Pt. is stable today with no complaints and can be discharged. Pt. to follow up with PCP. I, Juan Lowe MD, personally saw the patient and agree with the assessment and plan. Specialty Discharge - Follow Up or Referrals Discharge Plan - Discharge Data Disposition: Disch To Home/Self Care - Discharge Medications New Metoclopramide Tab [Reglan Tab] 5 mg PO ACHS #20 tablet Amoxicillin 500 mg PO TID #30 tablet Promethazine Tab [Phenergan Tab] 25 mg PO Q6H #12 tablet Doxycycline Hyclate Cap [Vibramycin Cap] 100 mg PO BID #20 capsule Continue Clopidogrel Bisulfate [Clopidogrel] 75 mg PO DAILY Pantoprazole Tab [Protonix Tab] 40 mg PO DAILY Ranolazine [Ranexa] 500 mg PO BID #60 tablet Skin Healing Oint (Aquaphor) [Aquaphor] 1 applic TOP PRN PRN #0 applic PRN Reason: Dry Skin traZODone [Desyrel] 50 mg PO BEDTIME PRN #0 tablet PRN Reason: Insomnia Tramadol HCl [Tramadol Tab] 50 mg PO Q6H PRN PRN Reason: Pain Nystatin Liquid [Mycostatin Oral Susp] 500,000 unit SWISH/SWAL QID Tamsulosin [Flomax] 0.4 mg PO DAILY capsule HYDROcodone/ACETAMIN 10-325 [[place] 10-325] 1 tablet PO Q6H PRN #30 PRN Reason: Pain hydrALAZINE TAB [Apresoline Tab] 10 mg PO TID Furosemide Tab [Lasix Tab] 40 mg PO DAILY Carvedilol [Coreg] 25 mg PO BID Aspirin EC Tab 81 mg PO DAILY Atorvastatin [Lipitor] 40 mg PO DAILY Magnesium Oxide 400 mg PO BID - Follow Up or Referral - Forms/Instructions Instructions: Metoclopramide (By mouth), Promethazine (By mouth), Gastroenteritis (ED) Exam - Constitutional Vitals: Period Temp Pulse Resp BP Sys/Zapien Pulse Ox Last 24 Hr 96.8 F-98.7 F 63-78 18-20 122-181/72-89 90-97 Discharge Results Procedures and tests throughout hospitalization: Pending Orders 09/24/16 00:00 Blood Culture Stat Labs on day of discharge: Labs from last 24 hours 09/29/16 09/29/16 09/29/16 16:36 11:37 06:39 POC Glucose 181 H 141 H 136 H 09/28/16 18:55 POC Glucose 141 H Preliminary micro results at discharge 09/24/16 00:00 Blood Culture - Preliminary Blood No growth at 3 days 09/24/16 00:00 Blood Culture - Preliminary Blood No growth at 3 days DS: Provider Date of admission: 09/26/16 08:43 Primary care physician: . No PCP Attending physician on admission: Denis Hopkins MD Discharging clinician: Blake Fernández NP <Juan Lowe - Last Filed: 10/15/16 18:54> Diagnosis - Discharge Diagnosis (1) Enterococcus UTI Status: Acute (2) Pleural effusion, left Status: Acute (3) UTI (urinary tract infection) Status: Acute (4) Acute exacerbation of CHF (congestive heart failure) Status: Resolved Discharge Plan - Discharge Data Condition at Discharge: Stable Discharge Diet: heart healthy Activity: resume usual activities as tolerated Hygiene: no restrictions Driving: no restrictions
[2016-09-29 17:13] VITALS: BP 138/75
--- NOTE | 2016-10-08 07:37 | Physician Query Form ---
CLICK EDIT DOCUMENT TO SELECT QUERY ANSWER --> OK --> SIGN Padmini Calderon RN, CCDS Certified Clinical Creative Developer W) [phone] (f) [phone] [email or web address] PROVIDERS: Make your selection(s) from the choices in EACH section by typing an "x" and enter comments in the comment section. Please use your independent medical judgment in providing your response. This request does not imply that any particular answer is desired or expected. CLINICAL INDICATORS: (Providers should not edit this section) The below diagnosis was documented in the record, but is not consistently noted in subsequent documentation. The medical record indicates that the patient was admitted with gastroenteritis , +Nausea, +Vomiting, +abd cramping, DORIE, "IVF, anti-emetics, and GI rest". Diagnosis: Gastroenteritis Please clarify the following: (X ) The above diagnosis was monitored, evaluated, and/or treated and is a confirmed diagnosis ( ) The above diagnosis was ruled out ( ) The above diagnosis is still a likely, suspected, probable diagnosis ( ) Other, please specify: ( ) Clinically unable to determine COMMENTS: PLEASE ALSO DOCUMENT RESPONSE IN PROGRESS NOTES AND/OR DISCHARGE SUMMARY Use of terms such as suspected, likely, or probable (associated with a specific diagnosis that is being evaluated, monitored, or treated as if it exists) are acceptable and can be restated in the discharge summary if not ruled out. MTDD
== END 2016-09-29 18:40 | disposition home or self-care (01) | DRG 391 ==
LOC: N.ED 22:48 → N.EDINP 22:48 → SUATTDRO 09-25 02:13 → N.2E 09-25 03:06
PROVIDERS: ADMIT Family Medicine; ATTEND Family Medicine

== ENCOUNTER 2016-12-13 07:16 | Inpatient (IN) ==
--- NOTE | 2016-12-13 07:38 | EKG Report ---
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
[2016-12-13 08:09] LABS: Basophils % 0.2 % (0.0-0.8); Eosinophils % 0.6 % (0.00-10.9); Hematocrit 33.8 VOL% (42.0-52.0); Hemoglobin 10.6 GM/DL (14.0-18.0); Immature Granulocytes % 0.4 %; Immature Granulocytes Absolute 0.02 #; Lymphocytes # 1.3 10*3/uL (1.4-4.0); Lymphocytes % 28.9 % (21.2-54.2); Mean Corpuscular HGB Conc 31.4 GM/DL (32-36); Mean Corpuscular Hemoglobin 28 PG (27-34); Mean Corpuscular Volume 88.9 FL (87-102); Mean Platelet Volume 9.8 FL (9.6-12.0); Monocytes # 0.4 10*3/uL (0.11-0.8); Monocytes % 9.5 % (1.7-12.7); Neutrophils # 2.8 10*3/uL (1.4-7.4); Neutrophils % 60.4 % (38.7-73.9); Platelet Count 217 T/CUMM (130-400); White Blood Count 4.6 T/CUMM (4-12)
[2016-12-13] MEDS ORDERED: ALUM/MAG/SIMETH/LIDO VISC 1:1 30 ML BOTTLE PO STA (08:17)
[2016-12-13] MEDS ORDERED: ONDANSETRON 4 MG/2 ML VIAL IV PRN (08:17)
[2016-12-13] MEDS ORDERED: NITROGLYCERIN SL 0.4 MG TABLET SL PRN (08:17)
[2016-12-13] MEDS ORDERED: ASPIRIN 325 MG TABLET PO STA (08:17)
[2016-12-13] MEDS ORDERED: METOPROLOL TARTRATE 5 MG/5 ML VIAL IV STA (08:17)
[2016-12-13] MEDS ORDERED: NITROGLYCERIN 2% OINT 1 INCH/GM PACK TOP STA (08:17)
[2016-12-13] MEDS ORDERED: MORPHINE 2 MG/1 ML SYRINGE IV PRN (08:17)
[2016-12-13] MEDS ORDERED: ENOXAPARIN 100 MG/ML SYRINGE SUBCUT STA (08:17)
--- NOTE | 2016-12-13 08:32 | Emergency Department Note ---
Minerva Castellanos Mantricia, am scribing for, and in the presence of, Piotr Martinez MD 07:49. Michelle Castellanos James D, MD, personally performed the services described in this documentation, ascribed by Sofi Palma in my presence, and it is both accurate and complete 831 . Arrival - Arrival Chief Complaint: Chest Pain Stated Complaint: chest pain,SOB ED Nursing Triage Note: chest pain sob that started last night when he was laying down Mode of Arrival: Wheelchair Limitations: No Limitations Source: Patient - History of Present Illness HPI Narrative: Pt is a 76 y/o black male arriving to ED via wheel chair with c/o chest pain that onset 1999 yesterday. Pt states that the pain is waxing and waning directly on the left side of his chest. He states that he was laying down when he initially became SOB and diaphoretic and the chest pain shortly followed. Pt denies N/V or any radiation of the pain. Pt reports that he wears home oxygen nightly. He states that he has not experienced the pain since being in ED. He confirms that he takes ASA PO daily. At time of exam, pt's heart rate is 79 with a blood pressure of 170/99. Pt has a PMHx of IDDM, HTN, CHF, CAD, CO with stent placements, respiratory problems, and pneumonia. No other complaints were reported to ED. Onset (ago): hour(s) Consistency: constant Severity: moderate Allergies/Adverse Reactions: Allergies Allergy/AdvReac Type Severity Reaction Status Date / Time Sulfa (Sulfonamide Allergy HIVES Verified 08/01/16 14:58 Antibiotics) Home Medications: Home Medications Medication Instructions Recorded Confirmed Type Clopidogrel Bisulfate [Clopidogrel] 75 mg PO DAILY 02/07/16 12/13/16 History Pantoprazole Tab [Protonix Tab] 40 mg PO DAILY 02/07/16 12/13/16 History Ranolazine [Ranexa] 500 mg PO BID #60 tablet 07/15/16 12/13/16 Rx Skin Healing Oint (Aquaphor) 1 applic TOP PRN PRN #0 applic 08/07/16 12/13/16 Rx [Aquaphor] Tamsulosin [Flomax] 0.4 mg PO DAILY capsule 08/07/16 12/13/16 Rx Nystatin Liquid [Mycostatin Oral 500,000 unit SWISH/SWAL QID 08/15/16 12/13/16 History Susp] Aspirin EC Tab 81 mg PO DAILY 08/17/16 12/13/16 History Atorvastatin [Lipitor] 40 mg PO DAILY 08/17/16 12/13/16 History Carvedilol [Coreg] 25 mg PO BID 08/17/16 12/13/16 History Furosemide Tab [Lasix Tab] 40 mg PO DAILY 08/17/16 12/13/16 History HYDROcodone/ACETAMIN 10-325 [[place] 1 tablet PO Q6H PRN #30 08/17/16 12/13/16 Rx 10-325] Magnesium Oxide 400 mg PO BID 08/17/16 12/13/16 History hydrALAZINE TAB [Apresoline Tab] 10 mg PO TID 08/17/16 12/13/16 History Metoclopramide Tab [Reglan Tab] 5 mg PO ACHS #20 tablet 09/25/16 12/13/16 Rx Promethazine Tab [Phenergan Tab] 25 mg PO Q6H #12 tablet 09/25/16 12/13/16 Rx Amoxicillin 500 mg PO TID #30 tablet 09/29/16 12/13/16 Rx Doxycycline Hyclate Cap 100 mg PO BID #20 capsule 09/29/16 12/13/16 Rx [Vibramycin Cap] Lisinopril [Zestril] 10 mg PO QAM 12/13/16 12/13/16 History Review of System - Review of System 12 point system: reviewed and no additional remarkable complaints except as stated - Review of System Constitutional: Absent: chills, diaphoresis, fever Head/Ears/Nose/Throat: Absent: earache Respiratory: Present: other (SOB). Absent: cough Cardiovascular: Present: chest pain Gastrointestinal: Absent: abdominal pain, nausea, vomiting, diarrhea Musculoskeletal: Absent: arm pain, back pain, leg pain, neck pain Neurological: Absent: headache, weakness Medical,Surgical,& Family Hx - Medical History Cardio: History of: CHF (EF 40% last month the cath), CAD (PCI of the LAD at [place] with diffuse small vessel disease and 417), Hypertension, CO, Cardiovascular Problems Psychological: No history of: Anxiety Disorders, Behavior Problems, Bipolar Disorder Neurology: History of: Migraine No history of: Brain Aneurysm, Cerebral Hemorrhage, Cerebrovascular Accident , Cerebral Palsy, Dementia, Seizures Endocrine: History of: Diabetes Mellitus (IDDM) No history of: Thyroid Disorder, Endocrine Problems Respiratory: History of: Pneumonia, Respiratory Problems (wears o2 at night) No history of: Obstructive Sleep Apnea, Pulmonary Embolism Renal: No history of: Renal (Kidney) Cancer, Dialysis, Renal Failure, Renal Problems Genitourinary: No history of: Bladder Problem, Kidney Stones, Prostate Problems, Recurring Urinary Tract Infections, Genitourinary Cancer, Problems Gastrointestinal: History of: GERD, Hemorrhoids Musculoskeletal: 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 Vinay Shipley), Back/ Neck Problems, Musculoskeletal Problems (weak and debilitated with osteoarthritis) Hematology: History of: Anemia No history of: Blood Transfusion Reaction - Surgical History Cardiac Surgeries: Sugical HX of: Cardiac Catheterization (07/[address] Weiss) Thoracic Surgeries: Patient denies;: Kidney (Renal Surgery), Lithotripsy, Nephrectomy, Organ Transplant, Lobectomy Neurologic Surgeries: Surgical HX of: Neurologic Surgery Patient denies: Brain Aneurysm, Cerebral Hemorrhage HEENT Surgeries: Patient denies: Eye Surgery, Thyroid Surgery, Tonsilectomy & Adenoidectomy Abdominal Surgeries: Surgical HX of: Abdominal Surgery, Appendectomy, Hernia Repair Patient denies: Colonoscopy, Gastric Bypass Surgery, EGD Reproductive Surgeries: Patient denies;: Cystoscopy, Genitourinary Surgery, Prostate Surgery - Family History Family History: Reports;: Family Diabetes (mom), Family Hypertension - Social History Smoking Status: Former smoker Exam Vital Signs: Vital Signs Temperature 98.1 F 12/13/16 07:19 Pulse Rate 81 12/13/16 07:32 Respiratory Rate 20 12/13/16 07:32 Blood Pressure 164/103 12/13/16 07:19 O2 Sat by Pulse Oximetry 93 L 12/13/16 07:19 GENERAL: This is a well-nourished well-developed black male, chronically ill- appearing in no apparent distress. VITAL SIGNS: Reviewed HEENT: Head is atraumatic and normocephalic. Pupils are equal round react to light. Extraocular movements are intact. Oropharynx is benign with moist mucous membranes. NECK: Neck is soft and supple without tenderness. There are no masses. There is no lymphadenopathy. LUNGS: Lungs are clear to auscultation. Chest rises symmetrically. There is no chest wall tenderness. CV: Heart is regular rate and rhythm without murmurs rubs or gallops. ABDOMEN: Abdomen is soft, nontender to palpation. There are no abdominal abnormal masses palpated. There is no organomegaly. Bowel sounds are present and active. SKIN: Skin is warm and dry. No rash. EXTREMITIES: Amputation of the right midfoot. There is no pedal edema. NEUROLOGIC: Awake alert and oriented 4. Cranial nerves II through XII are grossly intact. Motor is 5 over 5 in all extremities bilaterally. Course - Consultations Consultation #1: Discussed with hospitalist. Patient will be admitted to their service. Time: 09:55 Results - Labs CBC & BMP: 12/13/16 07:58 12/13/16 07:58 Lab Results: I have reviewed the patients labs Labs: Laboratory Tests 08/15/16 12/13/16 10:49 07:58 Troponin I 0.064 H 0.038 - EKG EKG results: interpreted by ERMD - Impressions EKG: Normal sinus rhythm with short LA interval, rate 82, low voltage QRS, old anterior CO. - Diagnostic Findings Procedure: Chest x-ray: image reviewed by me (Increased pulmonary markings bilaterally. Left pleural effusion.) Disposition Clinical Impression: Chest pain, Coronary artery disease, Diabetes mellitus, Congestive heart failure Case discussed with: patient Disposition: Still a Patient Condition: Stable
[2016-12-13 08:35] LABS: INR 1.1; PT Patient Result 11.3 SECS
[2016-12-13 08:42] LABS: Alanine Aminotransferase 18 U/L (16-61); Albumin 1.9 G/DL (3.4-5.0); Alkaline Phosphatase 155 U/L (45-117); Aspartate Amino Transferase 21 U/L (0-37); Blood Urea Nitrogen 18 MG/DL (7-18); Calcium 7.6 MG/DL (8.5-10.1); Glucose 126 MG/DL (74-106); Osmolality,Calculated 289.8 MOS/KG (273-304); Potassium 3.1 MMOL/L (3.5-5.1); Sodium 144 MMOL/L (136-145); Total Protein 6.4 G/DL (6.4-8.3); Troponin I Only 0.038 NG/ML (0.00-0.045)
[2016-12-13] MEDS ORDERED: ALUM/MAG/SIMETH/LIDO VISC 1:1 30 ML BOTTLE PO ONE (09:01)
[2016-12-13] MEDS ORDERED: NITROGLYCERIN 2% OINT 1 INCH/GM PACK TOP ONE (09:01)
[2016-12-13] MEDS ORDERED: METOPROLOL TARTRATE 5 MG/5 ML VIAL IV ONE (09:01)
[2016-12-13] MEDS ORDERED: ENOXAPARIN 100 MG/ML SYRINGE SUBCUT ONE (09:01)
[2016-12-13] MEDS ORDERED: ASPIRIN 325 MG TABLET ONE (09:01)
--- NOTE | 2016-12-13 09:15 | XRay Report ---
2 view chest. Indication: Chest pain. Comparison: September 27, 2016. The heart is enlarged. The pulmonary vasculature is prominent. The interstitial lung markings are prominent. There is bilateral atelectasis, worse on the left. There may be some infiltrate present at the left base is well. There are bilateral pleural effusions. Stable osseous structures. Impression: Interval worsening. Congestive heart failure. Concurrent pneumonia at the left base cannot be excluded. PROCEDURE INTERPRETED AT [facility] DEPARTMENT OF RADIOLOGY Final Report Signed by: Dr. Amara Cavazos
[2016-12-13] MEDS ORDERED: FUROSEMIDE 40 MG/4 ML VIAL IV STA (09:54)
[2016-12-13] MEDS ORDERED: FUROSEMIDE 100 MG/10 ML VIAL ONE (10:12)
--- NOTE | 2016-12-13 12:17 | EKG Report ---
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
--- NOTE | 2016-12-13 12:18 | Hospitalist History & Physical ---
<Blake Fernández - Last Filed: 12/13/16 12:04> Assessment and Plan (1) Chest pain Status: Acute Assessment and plan: Admitted to telemetry. Serial EKGs and serial troponins. Supplemental O2. Echo results from 09/26/16 showed EF of 35%. Nitro as needed. Current Visit: Yes (2) Congestive heart failure Status: Acute Assessment and plan: Chest x-ray shows congestive heart failure. BNP is 2182. Recent echo shows EF 35%. Diuresis patient. Strict I's and O's. Cardiac diet. Reassess in a.m. Current Visit: Yes (3) Diabetes mellitus Status: Acute Assessment and plan: Accu-Cheks before meals at bedtime. Sliding-scale insulin Current Visit: Yes (4) Coronary artery disease Status: Chronic Current Visit: Yes History of Present Illness Chief complaint: Chest pain History of present illness: Mr. Marcial is a 76-year-old black male patient with a history of GERD, hypertension, CHF, CAD, MN with stents, chronic anemia, and diabetes with right toe amputation who presents to the ED today with complaints of chest pain. Pt. states that the chest pain had an onset of around 1999 last night. Pt. states that he was laying down when he began to feel the chest pain. He stated that the pain was intermittent and accompanied by shortness of breath. Pt. denied any radiation of the pain, nausea, vomiting, numbness or tingling. Pt. also reports that he wears home oxygen nightly. On evaluation in the ED, pt's cardiac enzymes were negative. Pt.'s CXR showed interval worsening, CHF, and possible pneumonia. Remarkable labs include K 3.1, BNP 2182. Patient's case has been discussed with ER physician and hospitalist Dr. Cardoso. The patient has been accepted to our service and will be admitted to telemetry for further evaluation and treatment of chest pain, CHF exacerbation, and hypokalemia. Home medications have been reviewed and reconciled. Home Medications Medication Instructions Recorded Confirmed Type Clopidogrel Bisulfate [Clopidogrel] 75 mg PO DAILY 02/07/16 12/13/16 History Pantoprazole Tab [Protonix Tab] 40 mg PO DAILY 02/07/16 12/13/16 History Skin Healing Oint (Aquaphor) 1 applic TOP PRN PRN #0 applic 08/07/16 12/13/16 Rx [Aquaphor] Tamsulosin [Flomax] 0.4 mg PO DAILY capsule 08/07/16 12/13/16 Rx Aspirin EC Tab 81 mg PO DAILY 08/17/16 12/13/16 History Atorvastatin [Lipitor] 40 mg PO DAILY 08/17/16 12/13/16 History Carvedilol [Coreg] 25 mg PO BID 08/17/16 12/13/16 History Furosemide Tab [Lasix Tab] 40 mg PO DAILY 08/17/16 12/13/16 History HYDROcodone/ACETAMIN 10-325 [[place] 1 tablet PO Q6H PRN #30 08/17/16 12/13/16 Rx 10-325] Magnesium Oxide 400 mg PO BID 08/17/16 12/13/16 History Lisinopril [Zestril] 10 mg PO QAM 12/13/16 12/13/16 History Allergies Allergy/AdvReac Type Severity Reaction Status Date / Time Sulfa (Sulfonamide Allergy HIVES Verified 08/01/16 14:58 Antibiotics) Medical,Surgical,& Family Hx - Medical History Cardio: History of: CHF (EF 40% last month the cath), CAD (PCI of the LAD at [place] with diffuse small vessel disease and 417), Hypertension, MN, Cardiovascular Problems Psychological: No history of: Anxiety Disorders, Behavior Problems, Bipolar Disorder Neurology: History of: Migraine No history of: Brain Aneurysm, Cerebral Hemorrhage, Cerebrovascular Accident , Cerebral Palsy, Dementia, Seizures Endocrine: History of: Diabetes Mellitus (IDDM) No history of: Thyroid Disorder, Endocrine Problems Respiratory: History of: Pneumonia, Respiratory Problems (wears o2 at night) No history of: Obstructive Sleep Apnea, Pulmonary Embolism Renal: No history of: Renal (Kidney) Cancer, Dialysis, Renal Failure, Renal Problems Genitourinary: No history of: Bladder Problem, Kidney Stones, Prostate Problems, Recurring Urinary Tract Infections, Genitourinary Cancer, Problems Gastrointestinal: History of: GERD, Hemorrhoids Musculoskeletal: 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 Vinay Shipley), Back/ Neck Problems, Musculoskeletal Problems (weak and debilitated with osteoarthritis) Hematology: History of: Anemia No history of: Blood Transfusion Reaction - Surgical History Cardiac Surgeries: Sugical HX of: Cardiac Catheterization (07/[address] Weiss) Thoracic Surgeries: Patient denies;: Kidney (Renal Surgery), Lithotripsy, Nephrectomy, Organ Transplant, Lobectomy Neurologic Surgeries: Surgical HX of: Neurologic Surgery Patient denies: Brain Aneurysm, Cerebral Hemorrhage HEENT Surgeries: Patient denies: Eye Surgery, Thyroid Surgery, Tonsilectomy & Adenoidectomy Abdominal Surgeries: Surgical HX of: Abdominal Surgery, Appendectomy, Hernia Repair Patient denies: Colonoscopy, Gastric Bypass Surgery, EGD Reproductive Surgeries: Patient denies;: Cystoscopy, Genitourinary Surgery, Prostate Surgery - Family History Family History: Reports;: Family Diabetes (mom), Family Hypertension - Social History Smoking Status: Former smoker Frequency of Alcohol Use: None Type of Drug Use: None Marital Status: Single Lives With:: Alone Functional capacity: uses cane/walker 12 point system: reviewed and no additional remarkable complaints except as stated - Cardiovascular Cardiovascular: Present: chest pain at rest, dyspnea on exertion. Absent: radiating jaw, neck or arm pain - Gastrointestinal Gastrointestinal: Absent: abdominal pain, nausea, vomiting Exam - Constitutional Vitals: Period Temp Pulse Resp BP Sys/Zapien Pulse Ox Last 24 Hr 97.5 F-98.1 F 66-83 14-20 143-170/84-107 92-99 General appearance: normal weight, no acute distress - Head Head exam: Present: normal inspection, normocephalic - Eye Eye exam: Present: EOMI Pupils: Present: FUNMILAYO - ENT ENT exam: Present: normal exam - Respiratory Respiratory exam: Present: other (coarse) - Cardiovascular Cardiovascular exam: Present: regular rate and rhythm - GI/Abdominal GI/Abdominal exam: Present: normal bowel sounds, soft. Absent: tenderness - Extremities Exam Extremities exam: Present: edema (mild) - Neurological Exam Neurological exam: Present: alert, oriented X3 - Psychiatric Psychiatric exam: Present: normal affect, normal mood - Skin Skin exam: Present: normal color, warm, dry Results - Labs CBC & BMP: 12/13/16 07:58 12/13/16 07:58 Lab Results: I have reviewed the past 24 hour labs <Ade Cardoso - Last Filed: 12/13/16 17:44> History of Present Illness History of present illness: Patient seen and examined independently of ROOM SERVICE FOOD SERVICE ATTENDANT Fernández, agree with history, assessment and plan as documented. Patient with history of CAD with stent placement. Troponins negative so far. Cardiology consulted. Treating with IV lasix for chf exacerbation. Exam - Constitutional Vitals: Period Temp Pulse Resp BP Sys/Zapien Pulse Ox Last 24 Hr 97.5 F-98.4 F 66-83 14-20 143-174/84-107 92-99 Results - Labs CBC & BMP: 12/13/16 07:58 12/13/16 07:58
[2016-12-13 13:50] LABS: Apearance,Urine CLEAR (Clear); Bacteria,Urine Occasional /HPF (Few); Bilirubin,Urine Negative (Negative); Blood, Urine Moderate mg/dL (Negative); Glucose,Urine (UA) Negative (Negative); Ketones,Urine Negative (Negative); Nitrite,Urine Negative (Negative); Protein,Urine 30 MG/DL; RBC,Urine 6 /HPF (0-4); Urine Color Colorless (Yellow); Urine Specific Gravity 1.004 (1.001-1.035); Urine Urobilinogen < 2.0 EU/DL (0.2-1.0)
--- NOTE | 2016-12-13 14:26 | EKG Report ---
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
--- NOTE | 2016-12-13 15:24 | Cardiology Consult Note ---
Assessment and Plan (1) Congestive heart failure Status: Resolved Assessment and plan: 76-year-old black male, ischemic cardiomyopathy, admitted with volume overload, CHF exacerbation, rest angina. Normal cardiac biomarkers, no significant EKG changes compared to his significantly abnormal baseline. -CHF, volume overload. Continue diuresis with IV Lasix, monitor renal function closely, had DORIE in the past -Continue aspirin, Plavix, beta-imelda, high-dose statin for ICM. There is no ACS -Recommend to recheck echo, once volume overload improves. History of severe pulmonary hypertension, if this persists despite euvolemia, will need pulmonary and sleep evaluation. History of ischemic cardiomyopathy, ejection fraction 35- 40%. If not recovering with medical management, he can be a candidate for ICD implant. no indication for FINGER COBBLER or pacing -Severe PAD. Recommend to discuss with vascular surgery, severe PAD was found by Dr. Weiss, which seemed to be amenable to revascularization. This was not pursued for some reason. There are no rest ischemic symptoms, this may wait , once recovers from CHF exacerbation -Keep on telemetry Current Visit: No Qualifiers: Congestive heart failure type: systolic Congestive heart failure chronicity : acute on chronic Qualified Code(s): I50.23 - Acute on chronic systolic ( congestive) heart failure (2) Peripheral edema Status: Chronic Current Visit: No History of Present Illness - Data of Consult Patient: known to practice within the last 3 years Consult date: 12/13/16 - Consult Narrative Reason for consult: cp History of present illness: Mr. Marcial is a 76 year old BM, who is a poor historian. He was seen by multiple salesperson flowers at [facility] and likely a thrush also. Reviewing his notes here and [facility], I could not who is his primary salesperson flowers. He was admitted with progressive edema, shortness of breath, just became worse and for several days. Last night, he also developed substernal chest pain, which lasted for hours, then resolved today medications in the emergency room. History of CAD, ischemic cardiomyopathy, ejection fraction 3540%. He had LAD PCI and recently, when he was admitted with chest pain, [facility] showed revascularized CAD, no active critical lesions. Recent echo showed ejection fraction in the similar range, severe pulmonary hypertension. I did not see prior pulmonary or sleep workup for this. On prior admissions, he also had acute kidney injuries, this seems to be better at this time. He is currently comfortable, unable to provide much history about medication compliance. He had his right toes amputated, is still bandaged secondary still active disease there. Dr. Weiss found critical tibial lesion on his evaluation last time, and suggested that this may be amenable to DIESEL LOCOMOTIVE FIRER/FIREMAN, which was not pursued since. Details are not available. EKG shows old anterior and inferior UT, no significant change compared to prior EKG. No significant arrhythmia on telemetry. CC: Ade Cardoso MD - Home Medications and Allergies Home Medications: Home Medications Medication Instructions Recorded Confirmed Type Clopidogrel Bisulfate [Clopidogrel] 75 mg PO DAILY 02/07/16 12/13/16 History Pantoprazole Tab [Protonix Tab] 40 mg PO DAILY 02/07/16 12/13/16 History Skin Healing Oint (Aquaphor) 1 applic TOP PRN PRN #0 applic 08/07/16 12/13/16 Rx [Aquaphor] Tamsulosin [Flomax] 0.4 mg PO DAILY capsule 08/07/16 12/13/16 Rx Aspirin EC Tab 81 mg PO DAILY 08/17/16 12/13/16 History Atorvastatin [Lipitor] 40 mg PO DAILY 08/17/16 12/13/16 History Carvedilol [Coreg] 25 mg PO BID 08/17/16 12/13/16 History Furosemide Tab [Lasix Tab] 40 mg PO DAILY 08/17/16 12/13/16 History HYDROcodone/ACETAMIN 10-325 [[place] 1 tablet PO Q6H PRN #30 08/17/16 12/13/16 Rx 10-325] Magnesium Oxide 400 mg PO BID 08/17/16 12/13/16 History Lisinopril [Zestril] 10 mg PO QAM 12/13/16 12/13/16 History Allergies/Adverse Reactions: Allergies Allergy/AdvReac Type Severity Reaction Status Date / Time Sulfa (Sulfonamide Allergy HIVES Verified 08/01/16 14:58 Antibiotics) 12 point system: reviewed and no additional remarkable complaints except as stated Medical,Surgical,& Family Hx - Medical History Cardio: History of: CHF (EF 40% last month the cath), CAD (PCI of the LAD at [place] with diffuse small vessel disease and 417), Hypertension, UT, Cardiovascular Problems Psychological: No history of: Anxiety Disorders, Behavior Problems, Bipolar Disorder Neurology: History of: Migraine No history of: Brain Aneurysm, Cerebral Hemorrhage, Cerebrovascular Accident , Cerebral Palsy, Dementia, Seizures Endocrine: History of: Diabetes Mellitus (IDDM) No history of: Thyroid Disorder, Endocrine Problems Respiratory: History of: Pneumonia, Respiratory Problems (wears o2 at night) No history of: Obstructive Sleep Apnea, Pulmonary Embolism Renal: No history of: Renal (Kidney) Cancer, Dialysis, Renal Failure, Renal Problems Genitourinary: No history of: Bladder Problem, Kidney Stones, Prostate Problems, Recurring Urinary Tract Infections, Genitourinary Cancer, Problems Gastrointestinal: History of: GERD, Hemorrhoids Musculoskeletal: 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 Vinay Shipley), Back/ Neck Problems, Musculoskeletal Problems (weak and debilitated with osteoarthritis) Hematology: History of: Anemia No history of: Blood Transfusion Reaction - Surgical History Cardiac Surgeries: Sugical HX of: Cardiac Catheterization (07/[address] Weiss) Thoracic Surgeries: Patient denies;: Kidney (Renal Surgery), Lithotripsy, Nephrectomy, Organ Transplant, Lobectomy Neurologic Surgeries: Surgical HX of: Neurologic Surgery Patient denies: Brain Aneurysm, Cerebral Hemorrhage HEENT Surgeries: Patient denies: Eye Surgery, Thyroid Surgery, Tonsilectomy & Adenoidectomy Abdominal Surgeries: Surgical HX of: Abdominal Surgery, Appendectomy, Hernia Repair Patient denies: Colonoscopy, Gastric Bypass Surgery, EGD Reproductive Surgeries: Patient denies;: Cystoscopy, Genitourinary Surgery, Prostate Surgery - Family History Family History: Reports;: Family Diabetes (mom), Family Hypertension - Social History Smoking Status: Former smoker Frequency of Alcohol Use: None Type of Drug Use: None Physical Examination Vital Signs Temp Pulse Resp BP Pulse Ox 98.1 F 82 20 164/103 93 L 12/13/16 07:19 12/13/16 07:19 12/13/16 07:19 12/13/16 07:19 12/13/16 07:19 General: Present: Appears Well, No Apparent Distress HEENT: Present: Normocephaly, Mucus Membranes Moist Neck: Present: No JVD/HJR, No Bruit, No Lymphadenopathy, No Thyromegaly Cardiac: Present: Regular Rate, Regular Rhythm, S1/S2, Systolic Murmur Lungs: Present: Rales - Left, Rales - Right. Absent: Wheezes Neuro: Present: Grossly Intact Abdomen: Present: Soft, Active Bowel Sounds Skin: Present: Clear, Black, Other (Right foot bandaged, status post toe amputation) Musculoskeletal: Present: No Pain Extremities: Present: No Cyanosis, +3 Edema Result/EKG - Labs CBC & BMP: 12/13/16 07:58 12/13/16 07:58 Lab Results: I have reviewed the past 24 hour labs Labs: Laboratory Results - last 24 hr 12/13/16 12/13/16 12/13/16 07:58 07:58 07:58 WBC 4.6 RBC 3.80 Hgb 10.6 L Hct 33.8 L MCV 88.9 MCH 28 MCHC 31.4 L RDW 15.0 Plt Count 217 MPV 9.8 Neut % (Auto) 60.4 Lymph % (Auto) 28.9 Spink % (Auto) 9.5 Eos % (Auto) 0.6 Baso % (Auto) 0.2 Neut # (Auto) 2.8 Lymph # (Auto) 1.3 L Spink # (Auto) 0.4 Eos # (Auto) 0.0 Baso # (Auto) 0.0 Immature Gran % 0.4 Nucleated RBC % 0.0 Immature Gran # 0.02 Nucleated RBCs # 0.00 Immature Plt Fraction 0.0 INR PT Patient/Control Mix Circ Anticoag PTT Sodium 144 Potassium 3.1 L Chloride 108 H Carbon Dioxide 32 Anion Gap 7.1 BUN 18 Creatinine 1.50 H GFR Calculation 66 BUN/Creatinine Ratio 12.00 Glucose 126 H Calculated Osmolality 289.8 Calcium 7.6 L Magnesium 2.0 Total Bilirubin 0.40 AST 21 ALT 18 Alkaline Phosphatase 155 H Total Creatine Kinase 260 CK-MB (CK-2) 1.2 Troponin I 0.038 B-Natriuretic Peptide 2182 H Total Protein 6.4 Albumin 1.9 L Globulin 4.5 H Albumin/Globulin Ratio 0.4 L Urine Color Urine Appearance Urine pH Ur Specific Brick Urine Protein Urine Glucose (UA) Urine Ketones Urine Blood Urine Nitrate Urine Bilirubin Urine Urobilinogen Urine Leukocytes Urine RBC Urine Bacteria Ur Culture Indicated? 12/13/16 12/13/16 12/13/16 07:58 12:04 13:40 WBC RBC Hgb Hct MCV MCH MCHC RDW Plt Count MPV Neut % (Auto) Lymph % (Auto) [place]ink % (Auto) Eos % (Auto) Baso % (Auto) Neut # (Auto) Lymph # (Auto) Spink # (Auto) Eos # (Auto) Baso # (Auto) Immature Gran % Nucleated RBC % Immature Gran # Nucleated RBCs # Immature Plt Fraction INR 1.1 PT Patient/Control Mix 11.3 Circ Anticoag PTT 28.0 Sodium Potassium Chloride Carbon Dioxide Anion Gap BUN Creatinine GFR Calculation BUN/Creatinine Ratio Glucose Calculated Osmolality Calcium Magnesium Total Bilirubin AST ALT Alkaline Phosphatase Total Creatine Kinase CK-MB (CK-2) Troponin I 0.035 B-Natriuretic Peptide Total Protein Albumin Globulin Albumin/Globulin Ratio Urine Color Colorless Urine Appearance Clear Urine pH 7.0 Ur Specific Brick 1.004 Urine Protein 30 Urine Glucose (UA) Negative Urine Ketones Negative Urine Blood Moderate Urine Nitrate Negative Urine Bilirubin Negative Urine Urobilinogen < 2.0 H Urine Leukocytes Negative Urine RBC 6 Urine Bacteria Occasional Ur Culture Indicated? Not indicated - EKG EKG results: interpreted by me
[2016-12-13] MEDS: hydrALAZINE 10 MG TABLET PO SCH ×2 (16:41→22:03)
[2016-12-13] MEDS: FUROSEMIDE 40 MG/4 ML VIAL IV SCH (17:50)
[2016-12-13] MEDS: ONDANSETRON 4 MG/2 ML VIAL IV PRN (20:50)
[2016-12-13] MEDS: POTASSIUM CHLORIDE 20 MEQ TABLET PO PRN (22:03)
[2016-12-13] MEDS: CARVEDILOL 25 MG TABLET PO SCH (22:03)
[2016-12-14] MEDS: POTASSIUM CHLORIDE 20 MEQ TABLET PO PRN ×3 (02:06→06:08)
--- NOTE | 2016-12-14 08:26 | EKG Report ---
Stationary ECG Study [facility] Test Date: 12/14/2016 7:21:20 AM Pat Name: DAGMAR PURCELL Department: Room: 283 Gender: M Anaesthesiologist: RU : 1940 Requested by: Blake Fernández Order Number: [id number] Reading MD: LUIS FITCH Intervals [place] Rate: 66 P: 52 NV: 108 QRS: 98 QRSD: 100 T: -32 QT: 473 QTc: 486 Interpretive Statements SINUS RHYTHM WITH SHORT NV INTERVAL INDETERMINATE AXIS LOW QRS VOLTAGE IN PRECORDIAL LEADS INFERIOR MYOCARDIAL INFARCTION, OLD Electronically Signed On 12-14-16 18:58:17 CDT by LUIS FITCH [email or web address]
[2016-12-14] MEDS: CARVEDILOL 25 MG TABLET PO SCH ×2 (08:56→22:28)
[2016-12-14] MEDS: ATORVASTATIN 10 MG TABLET PO SCH (08:56)
[2016-12-14] MEDS: TAMSULOSIN 0.4 MG CAPSULE PO SCH (08:56)
[2016-12-14] MEDS: hydrALAZINE 10 MG TABLET PO SCH ×3 (08:56→22:26)
[2016-12-14] MEDS: CLOPIDOGREL 75 MG TABLET PO SCH (08:56)
[2016-12-14] MEDS: ASPIRIN EC 81 MG TABLET PO SCH (08:56)
[2016-12-14] MEDS: PANTOPRAZOLE 40 MG TABLET PO SCH (08:56)
[2016-12-14] MEDS: FUROSEMIDE 40 MG/4 ML VIAL IV SCH ×2 (08:57→16:27)
[2016-12-14] MEDS: LISINOPRIL 10 MG TABLET PO SCH (09:40)
--- NOTE | 2016-12-14 12:43 | Hospitalist Progress Note ---
Assessment and Plan (1) Status post transmetatarsal amputation of right foot Problem details: Slow healing Partial right foot amputee Status: Chronic Assessment and plan: The patient will continue with wound dressing changes for his transmetatarsal amputation. The patient continues on IV diuretic to improve volume overload. We will recheck renal function and brain natruretic peptide in the morning. Current Visit: No (2) Peripheral edema Status: Chronic Current Visit: No (3) Diabetes mellitus Status: Chronic Current Visit: No Qualifiers: Diabetes mellitus type: type 2 Diabetes mellitus complication status: with circulatory complication Diabetes mellitus complication detail: with other circulatory complications Diabetes mellitus computer terminal operator insulin use: with computer terminal operator use Qualified Code(s): E11.59 - Type 2 diabetes mellitus with other circulatory complications; Z79.4 - nursing home (current) use of insulin Hospitalist: Subjective Interval history: Mr. Marcial is admitted to the hospital with volume overload. The patient has chronic wounds on his bilateral feet due to peripheral vascular disease. The patient has had amputation of toes on the right-hand side. The patient complains of leg pain today which improved after [place]. The patient continues on diuresis with twice daily IV Lasix. Exam - Constitutional Vitals: Period Temp Pulse Resp BP Sys/Zapien Pulse Ox Last 24 Hr 97.5 F-99 F 65-86 18-20 101-174/30-100 82-97 Exam: Constitutional System: Mild distress. No tremulousness. Some muscular wasting diffusely Head: Normocephalic, atraumatic. Ears, Nose and Throat System: No evidence of Otitis or Mastoiditis. No epistaxis or discharge Eyes System: Pupils equal, round, and reactive. Extraocular muscles intact. Neck: Supple, without adenopathy, No jugular venous distention. No thyromegaly , neck mass, or prior surgery apparent. Respiratory System: Chest clear to auscultation. Cardiovascular System: Heart with regular rate and rhythm. No murmur. GI System: Abdomen soft, nontender. Normo active bowel sounds present. Musculoskeletal System: limbs with no pedal edema. Reduced pedal pulses. Results - Labs CBC & BMP: 12/13/16 07:58 12/13/16 07:58 Lab Results: I have reviewed the past 24 hour labs
[2016-12-14 13:17] LABS: Calcium 7.3 MG/DL (8.5-10.1); Magnesium 1.9 MG/DL (1.8-2.4); Osmolality,Calculated 289.8 MOS/KG (273-304); Potassium 3.6 MMOL/L (3.5-5.1)
[2016-12-14] MEDS: ONDANSETRON 4 MG/2 ML VIAL IV PRN (14:31)
--- NOTE | 2016-12-14 15:34 | Cardiology Progress Note ---
Assessment and Plan (1) Congestive heart failure Status: Acute Current Visit: Yes Qualifiers: Congestive heart failure type: combined Congestive heart failure chronicity : acute on chronic Qualified Code(s): I50.43 - Acute on chronic combined systolic (congestive) and diastolic (congestive) heart failure (2) Diabetes mellitus Status: Chronic Current Visit: Yes (3) Coronary artery disease Status: Chronic Current Visit: Yes (4) Acute renal insufficiency Status: Chronic Current Visit: No (5) PAD (peripheral artery disease) Status: Chronic Current Visit: Yes (6) Edema Status: Acute Current Visit: Yes (7) Pulmonary hypertension Status: Chronic Current Visit: Yes Cardiology - PN: Subj Interval history: GREEN MEAT PACKER: Dr. Petersen SUMMARY Mr. Marcial, 76-year-old BM with a history of ischemic cardiomyopathy (most recent EF 35-40%), CAD (PCI to LAD December 2015), PAD (status post stent to right anterior tibial artery (July 2016), recent amputation of toes to right foot , severe pulmonary hypertension and acute kidney injury. He was admitted to [facility] with progressive edema, shortness of breath and substernal chest pain. Ruled out for myocardial infarction. EKG shows old anterior and inferior NV, no significant change compared to prior EKG. 2016: Patient seen and examined on the telemetry unit. He has slightly improved overnight. He continues to be dyspneic. Complains of dyspnea on exertion orthopnea. BNP rising. Spironolactone will be added to his medication regimen. Hemodynamically stable. Daily BMP. Further plan and addendum to follow per Dr. Goodman. IMPRESSION AND PLAN: 1. ACUTE ON CHRONIC CONGESTIVE HEART FAILURE, COMBINED SYSTOLIC AND DIASTOLIC DYSFUNCTION- Continues his to be dyspneic. Echocardiogram performed September 2016 revealed EF 35-40% with grade 2 diastolic dysfunction. BNP is rising. Today 3163. Spironolactone has been added to patient's medication regimen. Will monitor daily BMP. Continue to diurese with IV Lasix. Monitor renal function is he has history of DORIE. Monitor strict daily weights and I's and O's. 2. History of ischemic cardiomyopathy - Continue aspirin, Plavix, beta-imelda , high-dose statin and DEBO inhibitor for ICM. There is no ACS. Recent LHC showed revascularized CAD, no active critical lesions. 3. SEVERE PULMONARY HYPERTENSION-consider pulmonary or sleep study workup. 4. BILATERAL LOWER EXTREMITY EDEMA -continue IV diuresis. Venous Dopplers. 5. PAD, STATUS POST AMPUTATION OF RIGHT TOES - Stable. Dressing clean dry and intact. 6. History of CAD -no ACS. Exam (Progress Note) - Constitutional Vitals: Period Temp Pulse Resp BP Sys/Zapien Pulse Ox Last 24 Hr 97.5 F-99 F 65-86 18-20 101-174/30-100 82-97 Exam: General: Appears well with no apparent distress. Pleasant and cooperative. Appears comfortable. HEENT: PERRL, normocephalic, atraumatic. Mucous membranes moist. No jaundice noted. Conjunctiva moist and clear, sclerae anicteric Neck: No JVD/HJR, no thyromegaly or lymphadenopathy noted. No carotid bruit appreciated Cardiac: Regular rate and rhythm. No murmur rub or gallop. Lungs: Clear to auscultation without accessory muscle use to assist the respiratory pattern. Decreased lung sounds in bases. Intermittent oxygen. Abdomen: Soft, bowel sounds normoactive. Nontender and nondistended. No abdominal bruit or thrill noted. No masses noted. Extremities: No clubbing, cyanosis noted. 2+ pitting edema bilaterally. Upper extremity pulses 2+. Capillary refill less than 3 seconds. Dressing to right foot clean dry and intact. Recent amputation of right toes. Skin: No unusual lesions or rashes. No skin breakdown appreciated. Neuro: Awake, alert and oriented 3. Moves all extremities well without hemiparesis or paralysis. No essential tremor is appreciated. Result/EKG - Labs CBC & BMP: 12/13/16 07:58 12/14/16 12:19 Lab Results: I have reviewed the past 24 hour labs Labs: Laboratory Results - last 24 hr 12/14/16 12/14/16 12/14/16 05:42 07:39 11:56 Sodium Potassium Chloride Carbon Dioxide Anion Gap BUN Creatinine GFR Calculation BUN/Creatinine Ratio Glucose POC Glucose 136 H 160 H Calculated Osmolality Calcium Magnesium B-Natriuretic Peptide 3163 H 12/14/16 12/14/16 12:19 12:19 Sodium 144 Potassium 3.6 3.6 Chloride 107 Carbon Dioxide 33 H Anion Gap 7.6 BUN 18 Creatinine 1.50 H GFR Calculation 65 BUN/Creatinine Ratio 12.00 Glucose 131 H POC Glucose Calculated Osmolality 289.8 Calcium 7.3 L Magnesium 1.9 B-Natriuretic Peptide
[2016-12-14] MEDS: SPIRONOLACTONE 25 MG TABLET PO SCH (16:28)
--- NOTE | 2016-12-14 17:33 | Ultrasound Report ---
Bilateral lower extremity venous Doppler with bhandari scale, Spectral Doppler and color-flow analysis performed and interpreted. Indication: Edema Scanning over both common femoral veins, superficial femoral veins, greater saphenous veins and popliteal veins demonstrates normal compressibility, color flow, and augmentation. Impression: No evidence of DVT seen in either lower extremity. The Ultrasound images were captured and stored. PROCEDURE INTERPRETED AT [facility] DEPARTMENT OF RADIOLOGY Final Report Signed by: Dr. Amara Cavazos
[2016-12-15 05:47] LABS: Basophils % 0.3 % (0.0-0.8); Eosinophils # 0.1 10*3/uL (0.0-0.87); Eosinophils % 2.3 % (0.00-10.9); Hematocrit 30.2 VOL% (42.0-52.0); Hemoglobin 9.4 GM/DL (14.0-18.0); Immature Granulocytes % 0.3 %; Immature Granulocytes Absolute 0.01 #; Lymphocytes # 1.2 10*3/uL (1.4-4.0); Lymphocytes % 34.2 % (21.2-54.2); Mean Corpuscular HGB Conc 31.1 GM/DL (32-36); Mean Corpuscular Hemoglobin 28 PG (27-34); Mean Corpuscular Volume 89.3 FL (87-102); Mean Platelet Volume 10.1 FL (9.6-12.0); Monocytes # 0.3 10*3/uL (0.11-0.8); Monocytes % 8.5 % (1.7-12.7); Neutrophils # 1.9 10*3/uL (1.4-7.4); Neutrophils % 54.4 % (38.7-73.9); Platelet Count 186 T/CUMM (130-400); Red Blood Count 3.38 MC/CUMM (3.8-5.5); Red Cell Distribution Width 15.1 % (9.3-17.3); White Blood Count 3.5 T/CUMM (4-12)
[2016-12-15 06:17] LABS: Calcium 7.4 MG/DL (8.5-10.1); Magnesium 1.9 MG/DL (1.8-2.4); Potassium 3.7 MMOL/L (3.5-5.1)
[2016-12-15] MEDS: FUROSEMIDE 40 MG/4 ML VIAL IV SCH (08:21)
[2016-12-15] MEDS: CLOPIDOGREL 75 MG TABLET PO SCH (08:22)
[2016-12-15] MEDS: ASPIRIN EC 81 MG TABLET PO SCH (08:22)
[2016-12-15] MEDS: TAMSULOSIN 0.4 MG CAPSULE PO SCH (08:23)
[2016-12-15] MEDS: ATORVASTATIN 10 MG TABLET PO SCH (08:23)
[2016-12-15] MEDS: hydrALAZINE 10 MG TABLET PO SCH ×3 (08:23→21:31)
[2016-12-15] MEDS: PANTOPRAZOLE 40 MG TABLET PO SCH (08:23)
[2016-12-15] MEDS: CARVEDILOL 25 MG TABLET PO SCH ×2 (08:23→21:31)
[2016-12-15] MEDS: SPIRONOLACTONE 25 MG TABLET PO SCH (08:23)
[2016-12-15] MEDS: LISINOPRIL 10 MG TABLET PO SCH (09:35)
--- NOTE | 2016-12-15 12:10 | Cardiology Progress Note ---
Assessment and Plan (1) Congestive heart failure Status: Acute Current Visit: Yes Qualifiers: Congestive heart failure type: combined Congestive heart failure chronicity : acute on chronic Qualified Code(s): I50.43 - Acute on chronic combined systolic (congestive) and diastolic (congestive) heart failure (2) Diabetes mellitus Status: Chronic Current Visit: Yes (3) Coronary artery disease Status: Chronic Current Visit: Yes (4) Acute renal insufficiency Status: Chronic Current Visit: No (5) PAD (peripheral artery disease) Status: Chronic Current Visit: Yes (6) Edema Status: Acute Current Visit: Yes (7) Pulmonary hypertension Status: Chronic Current Visit: Yes (8) Renal insufficiency Status: Chronic Assessment and plan: SEE PLAN OF CARE LISTED BELOW. Current Visit: Yes Cardiology - PN: Subj Interval history: POKER IN: Dr. Petersen SUMMARY Mr. Marcial, 76-year-old BM with a history of ischemic cardiomyopathy (most recent EF 35-40%), CAD (PCI to LAD December 2015), PAD (status post stent to right anterior tibial artery (July 2016), recent amputation of toes to right foot , severe pulmonary hypertension and acute kidney injury. He was admitted to [facility] with progressive edema, shortness of breath and substernal chest pain. Ruled out for myocardial infarction. EKG shows old anterior and inferior NM, no significant change compared to prior EKG. 2016: Patient seen and examined on the telemetry unit. He was sitting up in bed no acute distress. Not requiring oxygen. He continues to complain of dyspnea. He does report it has improved. Continue orthopnea. He is unable to ambulate as he does not have his walker in his room. Labs have been reviewed. His BNP is improving. However, renal function is worsening. Creatinine today is 1.8 with BUN of 25. Daily weights demonstrates increase in weight. At this point, I think we will continue with our current plan of care. We will recheck BMP in the morning as well as an x-ray. If creatinine continues to rise can consider holding DEBO inhibitor. Hemodynamically stable. I will further discuss with Dr. Weiss and await his additional recommendations. IMPRESSION AND PLAN: 1. ACUTE ON CHRONIC CONGESTIVE HEART FAILURE, COMBINED SYSTOLIC AND DIASTOLIC DYSFUNCTION- Echocardiogram performed September 2016 revealed EF 35-40% with grade 2 diastolic dysfunction. Continued orthopnea and dyspnea. Although this is improving. His BNP is improving. However, renal function is worsening. Creatinine today is 1.8 with BUN of 25. At this point, I think we will continue with our current plan of care. We will recheck BMP in the morning as well as an x-ray. If creatinine continues to rise can consider holding DEBO inhibitor. Daily BMP. I will further discuss with her joints and await his additional recommendations. Daily weights and strict I's and O's. 2. HISTORY OF ISCHEMIC CARDIOMYOPATHY - Echo September 2016, EF 35-40%. Continue aspirin, Plavix, beta-imelda, high-dose statin and DEBO inhibitor for ICM. There is no ACS. LHC June 2016 demonstrated patent stent to LAD, no active critical lesions. 3. SEVERE PULMONARY HYPERTENSION- Consider pulmonary or sleep study workup. 4. BILATERAL LOWER EXTREMITY EDEMA - Continue IV diuresis. Venous Dopplers negative for DVT. 5. PAD, STATUS POST AMPUTATION OF RIGHT TOES - Stable. Dressing clean dry and intact. 6. HISTORY OF CAD - No ACS. Continue dual antiplatelet therapy, beta blockade and lipid-lowering agent. 7. RENAL INSUFFICIENCY, CHRONIC, STAGE 3 - Creatinine today is up 1.8. Daily BMP. Consider holding DEBO inhibitor if creatinine continues to rise. Patient does have history of acute kidney injury. Exam (Progress Note) - Constitutional Vitals: Period Temp Pulse Resp BP Sys/Zapien Pulse Ox Last 24 Hr 97.2 F-98.3 F 60-65 16-20 101-128/57-95 82-100 Exam: General: Appears well with no apparent distress. Pleasant and cooperative. Appears comfortable. HEENT: PERRL, normocephalic, atraumatic. Mucous membranes moist. No jaundice noted. Conjunctiva moist and clear, sclerae anicteric Neck: No JVD/HJR, no thyromegaly or lymphadenopathy noted. No carotid bruit appreciated Cardiac: Regular rate and rhythm. No murmur rub or gallop. Lungs: Clear to auscultation without accessory muscle use to assist the respiratory pattern. Decreased lung sounds in bases. Not requiring oxygen Abdomen: Soft, bowel sounds normoactive. Nontender and nondistended. No abdominal bruit or thrill noted. No masses noted. Extremities: No clubbing, cyanosis noted. 2+ pitting edema bilaterally. Upper extremity pulses 2+. Capillary refill less than 3 seconds. Dressing to right foot clean dry and intact. Amputation of right toes. Skin: No unusual lesions or rashes. No skin breakdown appreciated. Neuro: Awake, alert and oriented 3. Moves all extremities well without hemiparesis or paralysis. No essential tremor is appreciated. Result/EKG - Labs CBC & BMP: 12/15/16 05:30 12/15/16 05:30 Lab Results: I have reviewed the past 24 hour labs Labs: Laboratory Results - last 24 hr 12/14/16 12/14/16 12/14/16 11:56 12:19 12:19 WBC RBC Hgb Hct MCV MCH MCHC RDW Plt Count MPV Neut % (Auto) Lymph % (Auto) Crowley % (Auto) Eos % (Auto) Baso % (Auto) Neut # (Auto) Lymph # (Auto) Crowley # (Auto) Eos # (Auto) Baso # (Auto) Immature Gran % Nucleated RBC % Immature Gran # Nucleated RBCs # Immature Plt Fraction D-Dimer, Quantitative Sodium 144 Potassium 3.6 3.6 Chloride 107 Carbon Dioxide 33 H Anion Gap 7.6 BUN 18 Creatinine 1.50 H GFR Calculation 65 BUN/Creatinine Ratio 12.00 Glucose 131 H POC Glucose 160 H Calculated Osmolality 289.8 Calcium 7.3 L Magnesium 1.9 B-Natriuretic Peptide 12/14/16 12/14/16 12/15/16 17:43 22:40 05:30 WBC 3.5 L RBC 3.38 L Hgb 9.4 L Hct 30.2 L MCV 89.3 MCH 28 MCHC 31.1 L RDW 15.1 Plt Count 186 MPV 10.1 Neut % (Auto) 54.4 Lymph % (Auto) 34.2 Crowley % (Auto) 8.5 Eos % (Auto) 2.3 Baso % (Auto) 0.3 Neut # (Auto) 1.9 Lymph # (Auto) 1.2 L Crowley # (Auto) 0.3 Eos # (Auto) 0.1 Baso # (Auto) 0.0 Immature Gran % 0.3 Nucleated RBC % 0.0 Immature Gran # 0.01 Nucleated RBCs # 0.00 Immature Plt Fraction 0.0 D-Dimer, Quantitative 1.6 Sodium Potassium Chloride Carbon Dioxide Anion Gap BUN Creatinine GFR Calculation BUN/Creatinine Ratio Glucose POC Glucose 190 H Calculated Osmolality Calcium Magnesium B-Natriuretic Peptide 12/15/16 12/15/16 12/15/16 05:30 05:30 07:39 WBC RBC Hgb Hct MCV MCH MCHC RDW Plt Count MPV Neut % (Auto) Lymph % (Auto) Crowley % (Auto) Eos % (Auto) Baso % (Auto) Neut # (Auto) Lymph # (Auto) Crowley # (Auto) Eos # (Auto) Baso # (Auto) Immature Gran % Nucleated RBC % Immature Gran # Nucleated RBCs # Immature Plt Fraction D-Dimer, Quantitative Sodium 143 Potassium 3.7 Chloride 106 Carbon Dioxide 33 H Anion Gap 7.7 BUN 25 H Creatinine 1.80 H GFR Calculation 52 BUN/Creatinine Ratio 13.00 Glucose 170 H POC Glucose 157 H Calculated Osmolality 292.0 Calcium 7.4 L Magnesium 1.9 B-Natriuretic Peptide 1290 H
[2016-12-15] MEDS ORDERED: DEXTROSE 50% 25 GM/50 ML SYRINGE IV PRN (16:00)
[2016-12-15] MEDS ORDERED: GLUCAGON 1 MG VIAL IM PRN (16:00)
[2016-12-15] MEDS: INSULIN LISPRO 100 UNIT/ML SUBCUT SCH ×2 (17:19→21:57)
--- NOTE | 2016-12-15 17:19 | Hospitalist Progress Note ---
Assessment and Plan (1) Status post transmetatarsal amputation of right foot Problem details: Slow healing Partial right foot amputee Status: Chronic Assessment and plan: The patient will continue with wound dressing changes for his transmetatarsal amputation. The patient will transition to oral diuretic today. Will recheck renal function in the morning. Current Visit: No (2) Peripheral edema Status: Chronic Current Visit: No (3) Diabetes mellitus Status: Chronic Current Visit: No Qualifiers: Diabetes mellitus type: type 2 Diabetes mellitus complication status: with circulatory complication Diabetes mellitus complication detail: with other circulatory complications Diabetes mellitus mcc insulin use: with terminal manager use Qualified Code(s): E11.59 - Type 2 diabetes mellitus with other circulatory complications; Z79.4 - detention (current) use of insulin Hospitalist: Subjective Interval history: Mr. Marcial has less shortness of breath. The patient remains with 1+ pedal edema and chronic wounds of the lower extremities. Renal function has begin to show azotemia and I am transitioning his diuretic from IV to oral medication. Exam - Constitutional Vitals: Period Temp Pulse Resp BP Sys/Zapien Pulse Ox Last 24 Hr 97.4 F-98.3 F 60-65 16-20 105-128/61-95 93-100 Exam: Constitutional System: Mild distress. No tremulousness. Some muscular wasting diffusely Head: Normocephalic, atraumatic. Ears, Nose and Throat System: No evidence of Otitis or Mastoiditis. No epistaxis or discharge Eyes System: Pupils equal, round, and reactive. Extraocular muscles intact. Neck: Supple, without adenopathy, No jugular venous distention. No thyromegaly , neck mass, or prior surgery apparent. Respiratory System: Chest clear to auscultation. Cardiovascular System: Heart with regular rate and rhythm. No murmur. GI System: Abdomen soft, nontender. Normo active bowel sounds present. Musculoskeletal System: limbs with no pedal edema. Reduced pedal pulses. Results - Labs CBC & BMP: 12/15/16 05:30 12/15/16 05:30 Lab Results: I have reviewed the past 24 hour labs
[2016-12-16 06:07] LABS: Basophils % 0.2 % (0.0-0.8); Eosinophils # 0.1 10*3/uL (0.0-0.87); Eosinophils % 1.2 % (0.00-10.9); Hematocrit 30.1 VOL% (42.0-52.0); Hemoglobin 9.3 GM/DL (14.0-18.0); Immature Granulocytes % 0.5 %; Immature Granulocytes Absolute 0.02 #; Lymphocytes # 1.3 10*3/uL (1.4-4.0); Lymphocytes % 30.6 % (21.2-54.2); Mean Corpuscular HGB Conc 30.9 GM/DL (32-36); Mean Corpuscular Hemoglobin 28 PG (27-34); Mean Corpuscular Volume 89.1 FL (87-102); Mean Platelet Volume 10.2 FL (9.6-12.0); Monocytes # 0.4 10*3/uL (0.11-0.8); Monocytes % 10.2 % (1.7-12.7); Neutrophils # 2.4 10*3/uL (1.4-7.4); Neutrophils % 57.3 % (38.7-73.9); Platelet Count 177 T/CUMM (130-400); Red Blood Count 3.38 MC/CUMM (3.8-5.5); Red Cell Distribution Width 15.1 % (9.3-17.3); White Blood Count 4.2 T/CUMM (4-12)
[2016-12-16 06:30] LABS: Calcium 7.7 MG/DL (8.5-10.1); Magnesium 1.9 MG/DL (1.8-2.4); Osmolality,Calculated 289.1 MOS/KG (273-304); Potassium 3.9 MMOL/L (3.5-5.1)
[2016-12-16] MEDS: INSULIN LISPRO 100 UNIT/ML SUBCUT SCH ×4 (08:24→21:36)
--- NOTE | 2016-12-16 08:57 | XRay Report ---
XR chest 1V portable Indication: Shortness of breath Comparison: 13 December 2016 Findings: The heart and mediastinum are stable in size and configuration. The pulmonary vascularity is increased with bilateral increased interstitial lung density slightly increased from previous. No other lung infiltrates, effusions, pneumothorax or other abnormality is demonstrated. Impression: Findings suggest slightly increasing cardiac decompensation. PROCEDURE INTERPRETED AT [facility] DEPARTMENT OF RADIOLOGY Final Report Signed by: Dr. Shaayn Paulino
[2016-12-16] MEDS: CARVEDILOL 25 MG TABLET PO SCH ×2 (09:51→20:37)
[2016-12-16] MEDS: TAMSULOSIN 0.4 MG CAPSULE PO SCH (09:51)
[2016-12-16] MEDS: ATORVASTATIN 10 MG TABLET PO SCH (09:51)
[2016-12-16] MEDS: ASPIRIN EC 81 MG TABLET PO SCH (09:51)
[2016-12-16] MEDS: FUROSEMIDE 80 MG TABLET PO SCH (09:51)
[2016-12-16] MEDS: SPIRONOLACTONE 25 MG TABLET PO SCH (09:52)
[2016-12-16] MEDS: hydrALAZINE 10 MG TABLET PO SCH ×2 (09:52→14:48)
[2016-12-16] MEDS: LISINOPRIL 10 MG TABLET PO SCH (09:52)
[2016-12-16] MEDS: CLOPIDOGREL 75 MG TABLET PO SCH (09:52)
[2016-12-16] MEDS: PANTOPRAZOLE 40 MG TABLET PO SCH (09:52)
--- NOTE | 2016-12-16 11:52 | Cardiology Progress Note ---
Assessment and Plan (1) Congestive heart failure Status: Acute Current Visit: Yes Qualifiers: Congestive heart failure type: combined Congestive heart failure chronicity : acute on chronic Qualified Code(s): I50.43 - Acute on chronic combined systolic (congestive) and diastolic (congestive) heart failure (2) Diabetes mellitus Status: Chronic Current Visit: Yes (3) Coronary artery disease Status: Chronic Current Visit: Yes (4) Acute renal insufficiency Status: Chronic Current Visit: No (5) PAD (peripheral artery disease) Status: Chronic Current Visit: Yes (6) Edema Status: Acute Current Visit: Yes (7) Pulmonary hypertension Status: Chronic Current Visit: Yes (8) Renal insufficiency Status: Chronic Assessment and plan: SEE PLAN OF CARE LISTED BELOW. Current Visit: Yes Cardiology - PN: Subj Interval history: ONCOLOGY PATIENT NAVIGATOR: Dr. Petersen SUMMARY Mr. Marcial, 76-year-old BM with a history of ischemic cardiomyopathy (most recent EF 35-40%), CAD (PCI to LAD December 2015), PAD (status post stent to right anterior tibial artery (July 2016), recent amputation of toes to right foot , severe pulmonary hypertension and acute kidney injury. He was admitted to [facility] with progressive edema, shortness of breath and substernal chest pain. Ruled out for myocardial infarction. EKG shows old anterior and inferior IN, no significant change compared to prior EKG. 2016: Patient seen and examined on the telemetry unit. He continues to report improvement in his breathing. He is continuing to have orthopnea. Has to sleep with his head of bed elevated. Chest x-ray this morning demonstrates gradual improvement. However, his net weight loss is only 1 pound since admission. He continues to be very edematous. Lasix has been titrated up to 80 mg IV daily per attending. We will monitor his renal function closely with daily BMP. Creatinine this morning is unchanged from yesterday at 1.8. Patient does have history of acute kidney injury and this will need to be monitored closely. Patient is hemodynamically stable. No further recommendations. I will discuss with Dr. Weiss and await his additional recommendations. IMPRESSION AND PLAN: 1. ACUTE ON CHRONIC CONGESTIVE HEART FAILURE, COMBINED SYSTOLIC AND DIASTOLIC DYSFUNCTION- Echocardiogram 09/2016, EF 35-40% with grade 2 diastolic dysfunction. This is gradually improving. Chest x-ray this morning demonstrates slow improvement. Net weight loss only 1 pound. Continues to be edematous. Lasix has been titrated up to 80 mg daily. Will monitor patient's renal function closely. Creatinine this morning is unchanged from yesterday at 1.8. Patient does have history of acute kidney injury and this will need to be monitored closely. 2. HISTORY OF ISCHEMIC CARDIOMYOPATHY - Echo September 2016, EF 35-40%. Continue aspirin, Plavix, beta-imelda, high-dose statin and DEBO inhibitor for ICM. There is no ACS. Ruled out IN. [facility] June 2016 demonstrated patent stent to LAD , no active critical lesions. 3. SEVERE PULMONARY HYPERTENSION- Consider pulmonary or sleep study workup. 4. BILATERAL LOWER EXTREMITY EDEMA - Continue IV diuresis. Venous Dopplers negative for DVT. 5. PAD, STATUS POST AMPUTATION OF RIGHT TOES - Stable. Dressing clean dry and intact. 6. HISTORY OF CAD - No ACS. Continue dual antiplatelet therapy, beta blockade and lipid-lowering agent. 7. RENAL INSUFFICIENCY, CHRONIC, STAGE 3 - Creatinine today is unchanged 1.8. Daily BMP. Consider holding DEBO inhibitor if creatinine continues to rise. Patient does have history of acute kidney injury. Exam (Progress Note) - Constitutional Vitals: Period Temp Pulse Resp BP Sys/Zapien Pulse Ox Last 24 Hr 96.1 F-98.8 F 64-70 16-18 99-143/50-75 92-97 Exam: General: Appears well with no apparent distress. Pleasant and cooperative. Appears comfortable. HEENT: PERRL, normocephalic, atraumatic. Mucous membranes moist. No jaundice noted. Conjunctiva moist and clear, sclerae anicteric Neck: No JVD/HJR, no thyromegaly or lymphadenopathy noted. No carotid bruit appreciated Cardiac: Regular rate and rhythm. No murmur rub or gallop. Lungs: Clear to auscultation without accessory muscle use to assist the respiratory pattern. Decreased lung sounds in bases. Not requiring oxygen Abdomen: Soft, bowel sounds normoactive. Nontender and nondistended. No abdominal bruit or thrill noted. No masses noted. Extremities: No clubbing, cyanosis noted. 2+ pitting edema bilaterally. Upper extremity pulses 2+. Capillary refill less than 3 seconds. Dressing to right foot clean dry and intact. Amputation of right toes. Skin: No unusual lesions or rashes. No skin breakdown appreciated. Neuro: Awake, alert and oriented 3. Moves all extremities well without hemiparesis or paralysis. No essential tremor is appreciated. Result/EKG - Labs CBC & BMP: 12/16/16 05:40 12/16/16 05:40 Lab Results: I have reviewed the past 24 hour labs Labs: Laboratory Results - last 24 hr 12/15/16 12/15/16 12/15/16 12:10 15:36 17:05 WBC RBC Hgb Hct MCV MCH MCHC RDW Plt Count MPV Neut % (Auto) Lymph % (Auto) Archer % (Auto) Eos % (Auto) Baso % (Auto) Neut # (Auto) Lymph # (Auto) Archer # (Auto) Eos # (Auto) Baso # (Auto) Immature Gran % Nucleated RBC % Immature Gran # Nucleated RBCs # Immature Plt Fraction Sodium Potassium Chloride Carbon Dioxide Anion Gap BUN Creatinine GFR Calculation BUN/Creatinine Ratio Glucose POC Glucose 170 H 152 H 137 H Calculated Osmolality Calcium Magnesium 12/15/16 12/16/16 12/16/16 21:35 05:40 05:40 WBC 4.2 RBC 3.38 L Hgb 9.3 L Hct 30.1 L MCV 89.1 MCH 28 MCHC 30.9 L RDW 15.1 Plt Count 177 MPV 10.2 Neut % (Auto) 57.3 Lymph % (Auto) 30.6 Archer % (Auto) 10.2 Eos % (Auto) 1.2 Baso % (Auto) 0.2 Neut # (Auto) 2.4 Lymph # (Auto) 1.3 L Archer # (Auto) 0.4 Eos # (Auto) 0.1 Baso # (Auto) 0.0 Immature Gran % 0.5 Nucleated RBC % 0.0 Immature Gran # 0.02 Nucleated RBCs # 0.00 Immature Plt Fraction 0.0 Sodium 142 Potassium 3.9 Chloride 106 Carbon Dioxide 32 Anion Gap 7.9 BUN 29 H Creatinine 1.80 H GFR Calculation 53 BUN/Creatinine Ratio 16.00 Glucose 108 H POC Glucose 171 H Calculated Osmolality 289.1 Calcium 7.7 L Magnesium 1.9 12/16/16 12/16/16 07:54 10:52 WBC RBC Hgb Hct MCV MCH MCHC RDW Plt Count MPV Neut % (Auto) Lymph % (Auto) Archer % (Auto) Eos % (Auto) Baso % (Auto) Neut # (Auto) Lymph # (Auto) Archer # (Auto) Eos # (Auto) Baso # (Auto) Immature Gran % Nucleated RBC % Immature Gran # Nucleated RBCs # Immature Plt Fraction Sodium Potassium Chloride Carbon Dioxide Anion Gap BUN Creatinine GFR Calculation BUN/Creatinine Ratio Glucose POC Glucose 114 H 170 H Calculated Osmolality Calcium Magnesium
--- NOTE | 2016-12-16 14:38 | Hospitalist Progress Note ---
Assessment and Plan (1) Status post transmetatarsal amputation of right foot Problem details: Slow healing Partial right foot amputee Status: Chronic Assessment and plan: The patient will continue with wound dressing changes for his transmetatarsal amputation. We will continue oral diuretic medication and arrange for discharge home tomorrow morning. Current Visit: No (2) Peripheral edema Status: Chronic Current Visit: No (3) Diabetes mellitus Status: Chronic Current Visit: No Qualifiers: Diabetes mellitus type: type 2 Diabetes mellitus complication status: with circulatory complication Diabetes mellitus complication detail: with other circulatory complications Diabetes mellitus guard captain insulin use: with guard captain use Qualified Code(s): E11.59 - Type 2 diabetes mellitus with other circulatory complications; Z79.4 - microsoft dynamics ax developer (current) use of insulin Hospitalist: Subjective Interval history: Mr. Marcial is sitting on the side of the bed today and says that he has improved strength. The patient has less shortness of breath. I updated his sister who is also in the room. She states that he has home health and home oxygen. Our goal is for discharge home tomorrow morning. Exam - Constitutional Vitals: Period Temp Pulse Resp BP Sys/Zapien Pulse Ox Last 24 Hr 96.1 F-98.8 F 64-70 16-20 99-143/50-75 92-97 Exam: Constitutional System: Minimal distress. No tremulousness. Some muscular wasting diffusely Head: Normocephalic, atraumatic. Ears, Nose and Throat System: No evidence of Otitis or Mastoiditis. No epistaxis or discharge Eyes System: Pupils equal, round, and reactive. Extraocular muscles intact. Neck: Supple, without adenopathy, No jugular venous distention. No thyromegaly , neck mass, or prior surgery apparent. Respiratory System: Chest clear to auscultation. Cardiovascular System: Heart with regular rate and rhythm. No murmur. GI System: Abdomen soft, nontender. Normo active bowel sounds present. Musculoskeletal System: limbs with no pedal edema. Reduced pedal pulses. Results - Labs CBC & BMP: 12/16/16 05:40 12/16/16 05:40 Lab Results: I have reviewed the past 24 hour labs
[2016-12-16] MEDS: ISOSORBIDE DINITRATE 20 MG TABLET PO SCH (20:36)
[2016-12-16] MEDS: hydrALAZINE 25 MG TABLET PO SCH (20:37)
[2016-12-17 05:57] LABS: Basophils % 0.5 % (0.0-0.8); Eosinophils # 0.1 10*3/uL (0.0-0.87); Eosinophils % 1.9 % (0.00-10.9); Hemoglobin 9.2 GM/DL (14.0-18.0); Immature Granulocytes % 0.2 %; Immature Granulocytes Absolute 0.01 #; Lymphocytes # 1.3 10*3/uL (1.4-4.0); Lymphocytes % 31.7 % (21.2-54.2); Mean Corpuscular HGB Conc 30.7 GM/DL (32-36); Mean Corpuscular Hemoglobin 28 PG (27-34); Mean Corpuscular Volume 89.6 FL (87-102); Mean Platelet Volume 10.2 FL (9.6-12.0); Monocytes # 0.4 10*3/uL (0.11-0.8); Monocytes % 8.4 % (1.7-12.7); Neutrophils # 2.4 10*3/uL (1.4-7.4); Neutrophils % 57.3 % (38.7-73.9); Platelet Count 182 T/CUMM (130-400); Red Blood Count 3.35 MC/CUMM (3.8-5.5); White Blood Count 4.2 T/CUMM (4-12)
[2016-12-17 06:30] LABS: Calcium 7.8 MG/DL (8.5-10.1); Magnesium 1.9 MG/DL (1.8-2.4); Osmolality,Calculated 293.8 MOS/KG (273-304); Potassium 4.2 MMOL/L (3.5-5.1)
[2016-12-17] MEDS: INSULIN LISPRO 100 UNIT/ML SUBCUT SCH (08:37)
[2016-12-17] MEDS: ATORVASTATIN 10 MG TABLET PO SCH (08:48)
[2016-12-17] MEDS: CARVEDILOL 25 MG TABLET PO SCH (08:49)
[2016-12-17] MEDS: CLOPIDOGREL 75 MG TABLET PO SCH (08:49)
[2016-12-17] MEDS: FUROSEMIDE 80 MG TABLET PO SCH (08:49)
[2016-12-17] MEDS: LISINOPRIL 10 MG TABLET PO SCH (08:49)
[2016-12-17] MEDS: ISOSORBIDE DINITRATE 20 MG TABLET PO SCH (08:49)
[2016-12-17] MEDS: TAMSULOSIN 0.4 MG CAPSULE PO SCH (08:49)
[2016-12-17] MEDS: ASPIRIN EC 81 MG TABLET PO SCH (08:49)
[2016-12-17] MEDS: SPIRONOLACTONE 25 MG TABLET PO SCH (08:50)
[2016-12-17] MEDS: hydrALAZINE 25 MG TABLET PO SCH (08:50)
--- NOTE | 2016-12-17 09:15 | Discharge Summary ---
Hospital Course - Hospital Course Hospital Course: Mr. Marcial was admitted to the hospital with shortness of breath, pulmonary edema , and worsening wounds on the lower extremities. The patient was treated for congestive heart failure with IV diuretic medication. Blood pressure medicines were adjusted. We had cardiology consultation with Dr. Nagy. The patient shortness of breath improved, his strength got better, and the patient was sitting up on the side of the bed independently and making transfer to the chair. The patient's sister helps him care for himself at home. She is ready to receive him back home and continue dressing changes daily as prescribed. On the date of discharge, the chest is clear and heart has regular rate and rhythm. Abdomen is soft. Patient medications were reconciled upon admission, and again at the time of discharge. The patient was screened for tobacco use and found to be a [occasional smoker]. The patient was given 4 minutes of tobacco avoidance education. The patient's medical decsion maker is [themself], and when asked, they asked to be [Full code]. Discharge Time was 31 minutes, including final examination, evaluation and planning, education, reconciliation of medications, writing prescriptions, coordinating care with case sealer, and preparing discharge documentation. 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 (2) Peripheral edema Status: Chronic (3) Diabetes mellitus Status: Chronic Discharge Plan - Discharge Data Disposition: Disch To Home/Self Care Condition at Discharge: Stable Discharge Diet: diabetic diet Activity: resume usual activities as tolerated - Discharge Medications New Furosemide Tab [Lasix Tab] 80 mg PO DAILY #60 tablet Isosorbide Dinitrate [Isordil] 20 mg PO TID #100 tablet Spironolactone [Aldactone] 25 mg PO DAILY #60 tablet Continue Clopidogrel Bisulfate [Clopidogrel] 75 mg PO DAILY Pantoprazole Tab [Protonix Tab] 40 mg PO DAILY Skin Healing Oint (Aquaphor) [Aquaphor] 1 applic TOP PRN PRN #0 applic PRN Reason: Dry Skin Tamsulosin [Flomax] 0.4 mg PO DAILY capsule HYDROcodone/ACETAMIN 10-325 [[place] 10-325] 1 tablet PO Q6H PRN #30 PRN Reason: Pain Lisinopril [Zestril] 10 mg PO QAM Carvedilol [Coreg] 25 mg PO BID Aspirin EC Tab 81 mg PO DAILY Atorvastatin [Lipitor] 40 mg PO DAILY Magnesium Oxide 400 mg PO BID Discontinued Furosemide Tab [Lasix Tab] 40 mg PO DAILY - Follow Up or Referral - Forms/Instructions Exam - Constitutional Vitals: Period Temp Pulse Resp BP Sys/Zapien Pulse Ox Last 24 Hr 96.1 F-98.8 F 60-64 14-20 108-152/57-76 91-98 Discharge Results Procedures and tests throughout hospitalization: Pending Orders 12/18/16 04:00 BMP w/ Mg [Basic Metabolic Panel w/Mg] IN AM CBC [Comp Blood Count Auto Diff] IN AM Labs on day of discharge: Labs from last 24 hours 12/17/16 12/17/16 12/17/16 07:46 05:31 05:31 WBC 4.2 RBC 3.35 L Hgb 9.2 L Hct 30.0 L MCV 89.6 MCH 28 MCHC 30.7 L RDW 15.0 Plt Count 182 MPV 10.2 Neut % (Auto) 57.3 Lymph % (Auto) 31.7 [place] % (Auto) 8.4 Eos % (Auto) 1.9 Baso % (Auto) 0.5 Neut # (Auto) 2.4 Lymph # (Auto) 1.3 L [place] # (Auto) 0.4 Eos # (Auto) 0.1 Baso # (Auto) 0.0 Immature Gran % 0.2 Nucleated RBC % 0.0 Immature Gran # 0.01 Nucleated RBCs # 0.00 Immature Plt Fraction 0.0 Sodium 144 Potassium 4.2 Chloride 106 Carbon Dioxide 33 H Anion Gap 9.2 BUN 33 H Creatinine 1.70 H GFR Calculation 53 BUN/Creatinine Ratio 19.00 Glucose 108 H POC Glucose 137 H Calculated Osmolality 293.8 Calcium 7.8 L Magnesium 1.9 12/16/16 12/16/16 12/16/16 19:36 15:42 10:52 WBC RBC Hgb Hct MCV MCH MCHC RDW Plt Count MPV Neut % (Auto) Lymph % (Auto) [place] % (Auto) Eos % (Auto) Baso % (Auto) Neut # (Auto) Lymph # (Auto) [place] # (Auto) Eos # (Auto) Baso # (Auto) Immature Gran % Nucleated RBC % Immature Gran # Nucleated RBCs # Immature Plt Fraction Sodium Potassium Chloride Carbon Dioxide Anion Gap BUN Creatinine GFR Calculation BUN/Creatinine Ratio Glucose POC Glucose 182 H 154 H 170 H Calculated Osmolality Calcium Magnesium DS: Provider Date of admission: 12/14/16 14:26 Primary care physician: Luisito Francis Attending physician on admission: Ade Cardoso MD Consults: 12/13/16 12:49 Consult to Physician [CONS] Routine Comment: Consulting Provider: Cardiology - [facility] Person Notified: DR. RODRIGUEZ Date Notified: 12/13/16 Time Notified: 14:45 Discharging clinician: Tien Sanches MD
[2016-12-17 11:41] VITALS: BP 103/53
== END 2016-12-17 11:56 | disposition home health service (06) | DRG 291 ==
LOC: N.ED 07:16 → N.EDINP 07:16 → SUATTDRO 10:42 → N.TELEN 11:34
PROVIDERS: ADMIT Internal Medicine; ATTEND Internal Medicine

== ENCOUNTER 2017-01-11 07:27 | Inpatient (IN) ==
[2017-01-11] MEDS ORDERED: FUROSEMIDE 100 MG/10 ML VIAL IV STA (07:51)
[2017-01-11] MEDS ORDERED: ONDANSETRON 4 MG/2 ML VIAL IV PRN ×2 (07:51→08:36)
[2017-01-11] MEDS ORDERED: FUROSEMIDE 100 MG/10 ML VIAL ONE (07:57)
[2017-01-11 07:58] LABS: Basophils % 0.4 % (0.0-0.8); Eosinophils # 0.1 10*3/uL (0.0-0.87); Eosinophils % 1.7 % (0.00-10.9); Hematocrit 35.2 VOL% (42.0-52.0); Hemoglobin 11.1 GM/DL (14.0-18.0); Immature Granulocytes % 0.6 %; Immature Granulocytes Absolute 0.03 #; Lymphocytes # 1.5 10*3/uL (1.4-4.0); Lymphocytes % 28.8 % (21.2-54.2); Mean Corpuscular HGB Conc 31.5 GM/DL (32-36); Mean Corpuscular Hemoglobin 27 PG (27-34); Mean Corpuscular Volume 86.7 FL (87-102); Mean Platelet Volume 10.3 FL (9.6-12.0); Monocytes # 0.5 10*3/uL (0.11-0.8); Monocytes % 8.7 % (1.7-12.7); Neutrophils # 3.1 10*3/uL (1.4-7.4); Neutrophils % 59.8 % (38.7-73.9); Platelet Count 207 T/CUMM (130-400); Red Blood Count 4.06 MC/CUMM (3.8-5.5); Red Cell Distribution Width 14.9 % (9.3-17.3); White Blood Count 5.2 T/CUMM (4-12)
[2017-01-11] MEDS ORDERED: ACETAMINOPHEN 325 MG TABLET PO PRN (08:36)
[2017-01-11 08:41] LABS: Bilirubin,Total 0.4 MG/DL (0.2-1.0); Calcium 7.8 MG/DL (8.5-10.1); Magnesium 1.8 MG/DL (1.8-2.4); Osmolality,Calculated 284.3 MOS/KG (273-304); Troponin I Only 0.028 NG/ML (0.00-0.045)
[2017-01-11 10:15] LABS: Partial Thromboplastin Time 29.1 SECS (0-40)
[2017-01-11] MEDS: BISACODYL 5 MG TABLET PO SCH (10:51)
[2017-01-11] MEDS ORDERED: ENOXAPARIN 30 MG/0.3 ML SYRINGE SUBCUT SCH (11:00)
[2017-01-11 11:22] LABS: Apearance,Urine CLEAR (Clear); Bilirubin,Urine Negative (Negative); Blood, Urine Small mg/dL (Negative); Glucose,Urine (UA) Negative (Negative); Ketones,Urine Negative (Negative); Mucus,Urine Occasional /LPF (Occasional); Nitrite,Urine Negative (Negative); Protein,Urine 30 MG/DL; RBC,Urine 2 /HPF (0-4); Squamous Epithelial Cell,Urine Occasional /HPF (0-10); Urine Color Colorless (Yellow); Urine Specific Gravity 1.003 (1.001-1.035); Urine Urobilinogen < 2.0 EU/DL (0.2-1.0); WBC,Urine <1 /HPF (0-6)
[2017-01-11 13:00] LABS: Troponin I Only 0.026 NG/ML (0.00-0.045)
[2017-01-11] MEDS: FUROSEMIDE 40 MG/4 ML VIAL IV SCH (15:34)
[2017-01-11] MEDS ORDERED: SKIN HEALING OINT (AQUAPHOR) 50 GM TUBE TOP PRN (16:59)
[2017-01-11 18:35] LABS: Troponin I Only 0.026 NG/ML (0.00-0.045)
[2017-01-11] MEDS: ISOSORBIDE DINITRATE 20 MG TABLET PO SCH (21:17)
[2017-01-11] MEDS: CARVEDILOL 25 MG TABLET PO SCH (21:17)
[2017-01-11] MEDS: MAGNESIUM OXIDE 400 MG TABLET PO SCH (21:17)
[2017-01-12 05:45] LABS: Calcium 7.3 MG/DL (8.5-10.1); Potassium 3.3 MMOL/L (3.5-5.1)
[2017-01-12] MEDS: SPIRONOLACTONE 25 MG TABLET PO SCH (08:45)
[2017-01-12] MEDS: TAMSULOSIN 0.4 MG CAPSULE PO SCH (08:46)
[2017-01-12] MEDS: BISACODYL 5 MG TABLET PO SCH (08:46)
[2017-01-12] MEDS: ATORVASTATIN 10 MG TABLET PO SCH (08:47)
[2017-01-12] MEDS: ASPIRIN EC 81 MG TABLET PO SCH (08:47)
[2017-01-12] MEDS: ISOSORBIDE DINITRATE 20 MG TABLET PO SCH ×3 (08:47→22:21)
[2017-01-12] MEDS: CARVEDILOL 25 MG TABLET PO SCH ×2 (08:47→22:21)
[2017-01-12] MEDS: LISINOPRIL 10 MG TABLET PO SCH (08:48)
[2017-01-12] MEDS: MAGNESIUM OXIDE 400 MG TABLET PO SCH ×2 (08:48→22:21)
[2017-01-12] MEDS: CLOPIDOGREL 75 MG TABLET PO SCH (08:48)
[2017-01-12] MEDS: PANTOPRAZOLE 40 MG TABLET PO SCH (08:48)
[2017-01-12] MEDS: FUROSEMIDE 40 MG/4 ML VIAL IV SCH ×2 (09:40→16:32)
[2017-01-12] MEDS: ENOXAPARIN 40 MG/0.4 ML SYRINGE SUBCUT SCH (11:34)
[2017-01-12] MEDS ORDERED: GLUCAGON 1 MG VIAL IM PRN (11:40)
[2017-01-12] MEDS ORDERED: DEXTROSE 50% 25 GM/50 ML VIAL IV PRN (11:40)
[2017-01-12] MEDS ORDERED: POTASSIUM CHLORIDE 20 MEQ TABLET PO PRN (11:42)
[2017-01-12] MEDS: INSULIN LISPRO 100 UNIT/ML SUBCUT SCH ×2 (16:32→22:21)
[2017-01-13 06:11] LABS: Basophils % 0.3 % (0.0-0.8); Eosinophils # 0.1 10*3/uL (0.0-0.87); Eosinophils % 1.8 % (0.00-10.9); Hemoglobin 9.2 GM/DL (14.0-18.0); Immature Granulocytes % 0.3 %; Immature Granulocytes Absolute 0.01 #; Lymphocytes # 1.2 10*3/uL (1.4-4.0); Lymphocytes % 29.9 % (21.2-54.2); Mean Corpuscular HGB Conc 31.7 GM/DL (32-36); Mean Corpuscular Hemoglobin 27 PG (27-34); Mean Corpuscular Volume 86.1 FL (87-102); Mean Platelet Volume 10.5 FL (9.6-12.0); Monocytes # 0.4 10*3/uL (0.11-0.8); Monocytes % 11.1 % (1.7-12.7); Neutrophils # 2.3 10*3/uL (1.4-7.4); Neutrophils % 56.6 % (38.7-73.9); Platelet Count 185 T/CUMM (130-400); Red Blood Count 3.37 MC/CUMM (3.8-5.5); Red Cell Distribution Width 14.8 % (9.3-17.3)
[2017-01-13 06:37] LABS: Calcium 7.7 MG/DL (8.5-10.1); Magnesium 1.7 MG/DL (1.8-2.4); Osmolality,Calculated 289.8 MOS/KG (273-304); Potassium 3.9 MMOL/L (3.5-5.1)
[2017-01-13] MEDS: INSULIN LISPRO 100 UNIT/ML SUBCUT SCH ×4 (08:25→21:17)
[2017-01-13] MEDS: FUROSEMIDE 40 MG/4 ML VIAL IV SCH (08:27)
[2017-01-13] MEDS: SPIRONOLACTONE 25 MG TABLET PO SCH (09:02)
[2017-01-13] MEDS: ASPIRIN EC 81 MG TABLET PO SCH (09:03)
[2017-01-13] MEDS: CARVEDILOL 25 MG TABLET PO SCH ×2 (09:03→21:17)
[2017-01-13] MEDS: BISACODYL 5 MG TABLET PO SCH (09:03)
[2017-01-13] MEDS: ISOSORBIDE DINITRATE 20 MG TABLET PO SCH ×3 (09:03→21:17)
[2017-01-13] MEDS: TAMSULOSIN 0.4 MG CAPSULE PO SCH (09:03)
[2017-01-13] MEDS: MAGNESIUM OXIDE 400 MG TABLET PO SCH ×2 (09:04→21:18)
[2017-01-13] MEDS: LISINOPRIL 10 MG TABLET PO SCH (09:04)
[2017-01-13] MEDS: CLOPIDOGREL 75 MG TABLET PO SCH (09:04)
[2017-01-13] MEDS: PANTOPRAZOLE 40 MG TABLET PO SCH (09:04)
[2017-01-13] MEDS: ATORVASTATIN 10 MG TABLET PO SCH (09:04)
[2017-01-13] MEDS: ENOXAPARIN 40 MG/0.4 ML SYRINGE SUBCUT SCH (12:28)
[2017-01-13] MEDS: LISINOPRIL 20 MG TABLET PO SCH (12:38)
[2017-01-14 06:26] LABS: Calcium 7.9 MG/DL (8.5-10.1); Osmolality,Calculated 290.1 MOS/KG (273-304); Potassium 3.8 MMOL/L (3.5-5.1)
[2017-01-14] MEDS: INSULIN LISPRO 100 UNIT/ML SUBCUT SCH ×4 (09:21→21:12)
[2017-01-14] MEDS: LISINOPRIL 20 MG TABLET PO SCH (09:26)
[2017-01-14] MEDS: SPIRONOLACTONE 25 MG TABLET PO SCH (09:26)
[2017-01-14] MEDS: ISOSORBIDE DINITRATE 20 MG TABLET PO SCH ×3 (09:26→21:12)
[2017-01-14] MEDS: ATORVASTATIN 10 MG TABLET PO SCH (09:26)
[2017-01-14] MEDS: ASPIRIN EC 81 MG TABLET PO SCH (09:27)
[2017-01-14] MEDS: CARVEDILOL 25 MG TABLET PO SCH ×2 (09:27→21:12)
[2017-01-14] MEDS: LISINOPRIL 10 MG TABLET PO SCH (09:27)
[2017-01-14] MEDS: CLOPIDOGREL 75 MG TABLET PO SCH (09:27)
[2017-01-14] MEDS: PANTOPRAZOLE 40 MG TABLET PO SCH (09:27)
[2017-01-14] MEDS: TORSEMIDE 20 MG TABLET PO SCH (09:27)
[2017-01-14] MEDS: MAGNESIUM OXIDE 400 MG TABLET PO SCH ×2 (09:27→21:11)
[2017-01-14] MEDS: TAMSULOSIN 0.4 MG CAPSULE PO SCH (09:27)
[2017-01-14] MEDS: ENOXAPARIN 40 MG/0.4 ML SYRINGE SUBCUT SCH (12:42)
[2017-01-15 06:02] LABS: Calcium 7.7 MG/DL (8.5-10.1); Potassium 3.9 MMOL/L (3.5-5.1)
[2017-01-15] MEDS: INSULIN LISPRO 100 UNIT/ML SUBCUT SCH ×4 (08:35→21:24)
[2017-01-15] MEDS: CLOPIDOGREL 75 MG TABLET PO SCH (09:15)
[2017-01-15] MEDS: LISINOPRIL 20 MG TABLET PO SCH (09:15)
[2017-01-15] MEDS: TAMSULOSIN 0.4 MG CAPSULE PO SCH (09:15)
[2017-01-15] MEDS: PANTOPRAZOLE 40 MG TABLET PO SCH (09:15)
[2017-01-15] MEDS: ATORVASTATIN 10 MG TABLET PO SCH (09:15)
[2017-01-15] MEDS: ASPIRIN EC 81 MG TABLET PO SCH (09:16)
[2017-01-15] MEDS: LISINOPRIL 10 MG TABLET PO SCH (09:16)
[2017-01-15] MEDS: ISOSORBIDE DINITRATE 20 MG TABLET PO SCH ×3 (09:16→21:24)
[2017-01-15] MEDS: TORSEMIDE 20 MG TABLET PO SCH (09:16)
[2017-01-15] MEDS: SPIRONOLACTONE 25 MG TABLET PO SCH (09:16)
[2017-01-15] MEDS: MAGNESIUM OXIDE 400 MG TABLET PO SCH ×2 (09:16→21:24)
[2017-01-15] MEDS: CARVEDILOL 25 MG TABLET PO SCH ×2 (09:16→21:24)
[2017-01-15] MEDS: ENOXAPARIN 40 MG/0.4 ML SYRINGE SUBCUT SCH (12:22)
[2017-01-16] MEDS: INSULIN LISPRO 100 UNIT/ML SUBCUT SCH ×4 (08:22→21:44)
[2017-01-16] MEDS: LISINOPRIL 20 MG TABLET PO SCH (09:15)
[2017-01-16] MEDS: ATORVASTATIN 10 MG TABLET PO SCH (09:16)
[2017-01-16] MEDS: TORSEMIDE 20 MG TABLET PO SCH (09:16)
[2017-01-16] MEDS: ISOSORBIDE DINITRATE 20 MG TABLET PO SCH ×3 (09:16→21:43)
[2017-01-16] MEDS: TAMSULOSIN 0.4 MG CAPSULE PO SCH (09:16)
[2017-01-16] MEDS: CLOPIDOGREL 75 MG TABLET PO SCH (09:16)
[2017-01-16] MEDS: MAGNESIUM OXIDE 400 MG TABLET PO SCH ×2 (09:17→21:43)
[2017-01-16] MEDS: CARVEDILOL 25 MG TABLET PO SCH ×2 (09:17→21:43)
[2017-01-16] MEDS: PANTOPRAZOLE 40 MG TABLET PO SCH (09:17)
[2017-01-16] MEDS: ASPIRIN EC 81 MG TABLET PO SCH (09:17)
[2017-01-16] MEDS: SPIRONOLACTONE 25 MG TABLET PO SCH (09:17)
[2017-01-16] MEDS: ALBUTEROL/IPRATROPIUM 3 ML NEB RESP TX SCH ×3 (11:00→19:11)
[2017-01-16] MEDS: ENOXAPARIN 40 MG/0.4 ML SYRINGE SUBCUT SCH (11:09)
[2017-01-17] MEDS: ALBUTEROL/IPRATROPIUM 3 ML NEB RESP TX SCH ×7 (00:25→23:46)
[2017-01-17 05:51] LABS: Calcium 7.7 MG/DL (8.5-10.1); Potassium 4.2 MMOL/L (3.5-5.1)
[2017-01-17] MEDS: INSULIN LISPRO 100 UNIT/ML SUBCUT SCH ×4 (08:27→21:20)
[2017-01-17] MEDS: SPIRONOLACTONE 25 MG TABLET PO SCH (08:45)
[2017-01-17] MEDS: ISOSORBIDE DINITRATE 20 MG TABLET PO SCH ×3 (08:45→21:20)
[2017-01-17] MEDS: TORSEMIDE 20 MG TABLET PO SCH (08:45)
[2017-01-17] MEDS: LISINOPRIL 20 MG TABLET PO SCH (08:45)
[2017-01-17] MEDS: TAMSULOSIN 0.4 MG CAPSULE PO SCH (08:45)
[2017-01-17] MEDS: MAGNESIUM OXIDE 400 MG TABLET PO SCH ×2 (08:46→21:20)
[2017-01-17] MEDS: CARVEDILOL 25 MG TABLET PO SCH ×2 (08:46→21:20)
[2017-01-17] MEDS: PANTOPRAZOLE 40 MG TABLET PO SCH (08:46)
[2017-01-17] MEDS: ATORVASTATIN 10 MG TABLET PO SCH (08:46)
[2017-01-17] MEDS: ASPIRIN EC 81 MG TABLET PO SCH (08:46)
[2017-01-17] MEDS: CLOPIDOGREL 75 MG TABLET PO SCH (08:46)
[2017-01-17] MEDS: ENOXAPARIN 40 MG/0.4 ML SYRINGE SUBCUT SCH (12:41)
[2017-01-18] MEDS: ALBUTEROL/IPRATROPIUM 3 ML NEB RESP TX SCH ×3 (02:09→10:37)
[2017-01-18 05:47] LABS: Calcium 7.8 MG/DL (8.5-10.1); Osmolality,Calculated 289.1 MOS/KG (273-304); Potassium 4.2 MMOL/L (3.5-5.1)
[2017-01-18] MEDS: INSULIN LISPRO 100 UNIT/ML SUBCUT SCH ×2 (08:49→14:49)
[2017-01-18] MEDS: SPIRONOLACTONE 25 MG TABLET PO SCH (08:51)
[2017-01-18] MEDS: CLOPIDOGREL 75 MG TABLET PO SCH (08:51)
[2017-01-18] MEDS: TORSEMIDE 20 MG TABLET PO SCH (08:51)
[2017-01-18] MEDS: LISINOPRIL 20 MG TABLET PO SCH (08:51)
[2017-01-18] MEDS: ISOSORBIDE DINITRATE 20 MG TABLET PO SCH (08:51)
[2017-01-18] MEDS: CARVEDILOL 25 MG TABLET PO SCH (08:52)
[2017-01-18] MEDS: ASPIRIN EC 81 MG TABLET PO SCH (08:52)
[2017-01-18] MEDS: PANTOPRAZOLE 40 MG TABLET PO SCH (08:52)
[2017-01-18] MEDS: ATORVASTATIN 10 MG TABLET PO SCH (08:52)
[2017-01-18] MEDS: TAMSULOSIN 0.4 MG CAPSULE PO SCH (08:52)
[2017-01-18] MEDS: MAGNESIUM OXIDE 400 MG TABLET PO SCH (08:52)
[2017-01-18 12:48] VITALS: BP 143/78
[2017-01-18] MEDS: ENOXAPARIN 40 MG/0.4 ML SYRINGE SUBCUT SCH (14:49)
== END 2017-01-18 15:30 | disposition home health service (06) | DRG 292 ==
LOC: N.ED 07:27 → N.EDINP 07:27 → N.TELEN 09:40 → SUATTDRO 01-12 08:12
PROVIDERS: ADMIT Family Medicine; ATTEND Internal Medicine

== ENCOUNTER 2017-03-01 13:52 | Inpatient (IN) ==
[2017-03-01 15:25] LABS: Basophils % 0.4 % (0.0-0.8); Eosinophils # 0.1 10*3/uL (0.0-0.87); Eosinophils % 1.2 % (0.00-10.9); Hematocrit 34.4 VOL% (42.0-52.0); Hemoglobin 10.7 GM/DL (14.0-18.0); Immature Granulocytes % 0.2 %; Immature Granulocytes Absolute 0.01 #; Lymphocytes # 1.2 10*3/uL (1.4-4.0); Lymphocytes % 22.9 % (21.2-54.2); Mean Corpuscular HGB Conc 31.1 GM/DL (32-36); Mean Corpuscular Hemoglobin 28 PG (27-34); Mean Corpuscular Volume 88.4 FL (87-102); Mean Platelet Volume 10.1 FL (9.6-12.0); Monocytes # 0.4 10*3/uL (0.11-0.8); Monocytes % 7.8 % (1.7-12.7); Neutrophils # 3.5 10*3/uL (1.4-7.4); Neutrophils % 67.5 % (38.7-73.9); Platelet Count 222 T/CUMM (130-400); Red Blood Count 3.89 MC/CUMM (3.8-5.5); Red Cell Distribution Width 15.9 % (9.3-17.3); White Blood Count 5.1 T/CUMM (4-12)
[2017-03-01 15:36] LABS: Alanine Aminotransferase 40 U/L (16-61); Albumin 2.1 G/DL (3.4-5.0); Alkaline Phosphatase 274 U/L (45-117); Aspartate Amino Transferase 36 U/L (0-37); Blood Urea Nitrogen 30 MG/DL (7-18); Calcium 8.2 MG/DL (8.5-10.1); Glucose 95 MG/DL (74-106); Osmolality,Calculated 286.3 MOS/KG (273-304); Sodium 141 MMOL/L (136-145); Total Protein 7.9 G/DL (6.4-8.3); Troponin I Only 0.027 NG/ML (0.00-0.045)
[2017-03-01] MEDS ORDERED: CARVEDILOL 3.125 MG TABLET PO STA (18:46)
[2017-03-01] MEDS ORDERED: FUROSEMIDE 40 MG/4 ML VIAL IV STA (18:46)
[2017-03-01] MEDS ORDERED: CARVEDILOL 3.125 MG TABLET ONE (18:50)
[2017-03-01] MEDS ORDERED: FUROSEMIDE 100 MG/10 ML VIAL ONE (18:50)
[2017-03-01] MEDS ORDERED: GLUCAGON 1 MG VIAL IM PRN (18:58)
[2017-03-01] MEDS ORDERED: DEXTROSE 50% 25 GM/50 ML VIAL IV PRN (18:58)
[2017-03-01] MEDS ORDERED: MAGNESIUM SULF RIDER 4 GM in PREMIX 1 EACH IV PRN (18:59)
[2017-03-01] MEDS ORDERED: ACETAMINOPHEN 325 MG TABLET PO PRN (18:59)
[2017-03-01] MEDS ORDERED: POTASSIUM CHLORIDE 20 MEQ TABLET PO PRN (18:59)
[2017-03-01] MEDS ORDERED: ZALEPLON 5 MG CAPSULE PO PRN (18:59)
[2017-03-01] MEDS ORDERED: MAGNESIUM SULF RIDER 2 GM in PREMIX 1 EACH IV PRN (18:59)
[2017-03-01] MEDS: ENOXAPARIN 40 MG/0.4 ML SYRINGE SUBCUT SCH (21:11)
[2017-03-01] MEDS: ISOSORBIDE DINITRATE 20 MG TABLET PO SCH (21:11)
[2017-03-01] MEDS: INSULIN LISPRO 100 UNIT/ML SUBCUT SCH (21:11)
[2017-03-01] MEDS: hydrALAZINE 25 MG TABLET PO SCH (21:11)
[2017-03-01 23:06] LABS: Apearance,Urine CLEAR (Clear); Bilirubin,Urine Negative (Negative); Blood, Urine Moderate mg/dL (Negative); Glucose,Urine (UA) Negative (Negative); Ketones,Urine Negative (Negative); Nitrite,Urine Negative (Negative); Protein,Urine 30 MG/DL; RBC,Urine 5 /HPF (0-4); Urine Color Colorless (Yellow); Urine Specific Gravity 1.004 (1.001-1.035); Urine Urobilinogen < 2.0 EU/DL (0.2-1.0); WBC,Urine <1 /HPF (0-6)
[2017-03-02 02:02] LABS: Calcium 7.5 MG/DL (8.5-10.1); Osmolality,Calculated 292.1 MOS/KG (273-304); Potassium 3.8 MMOL/L (3.5-5.1); Risk Ratio 2.09; VLDL CHOLESTEROL 9.4 MG/DL
[2017-03-02] MEDS: INSULIN LISPRO 100 UNIT/ML SUBCUT SCH ×4 (09:24→20:43)
[2017-03-02] MEDS: FUROSEMIDE 40 MG/4 ML VIAL IV SCH ×2 (09:29→17:26)
[2017-03-02] MEDS: ISOSORBIDE DINITRATE 20 MG TABLET PO SCH ×3 (09:29→20:43)
[2017-03-02] MEDS: PANTOPRAZOLE 40 MG TABLET PO SCH (09:29)
[2017-03-02] MEDS: hydrALAZINE 25 MG TABLET PO SCH ×3 (09:29→20:43)
[2017-03-02] MEDS: ASPIRIN CHEW 81 MG TABLET PO SCH (09:31)
[2017-03-02] MEDS ORDERED: SKIN HEALING OINT (AQUAPHOR) 50 GM TUBE TOP PRN (12:20)
[2017-03-02] MEDS: ATORVASTATIN 40 MG TABLET PO SCH (13:04)
[2017-03-02] MEDS: CLOPIDOGREL 75 MG TABLET PO SCH (13:04)
[2017-03-02] MEDS: CARVEDILOL 6.25 MG TABLET PO SCH ×2 (13:04→20:43)
[2017-03-02] MEDS ORDERED: TUBERCULIN SKIN TEST 0.1 ML SYRINGE INTRADERM ONE (15:59)
[2017-03-02] MEDS: ENOXAPARIN 40 MG/0.4 ML SYRINGE SUBCUT SCH (20:42)
[2017-03-03] MEDS: INSULIN LISPRO 100 UNIT/ML SUBCUT SCH ×4 (07:46→22:10)
[2017-03-03] MEDS: FUROSEMIDE 40 MG/4 ML VIAL IV SCH (08:30)
[2017-03-03] MEDS ORDERED: ASPIRIN 325 MG TABLET PO ONE (08:37)
[2017-03-03] MEDS: NITROGLYCERIN SL 0.4 MG TABLET SL PRN ×2 (08:44→08:49)
[2017-03-03] MEDS: CARVEDILOL 6.25 MG TABLET PO SCH ×2 (08:44→16:48)
[2017-03-03] MEDS: hydrALAZINE 25 MG TABLET PO SCH (08:44)
[2017-03-03] MEDS: ISOSORBIDE DINITRATE 20 MG TABLET PO SCH ×3 (08:44→22:08)
[2017-03-03] MEDS ORDERED: MORPHINE 2 MG/1 ML SYRINGE IV PRN (08:52)
[2017-03-03] MEDS ORDERED: DIAZEPAM 5 MG TABLET PO ONE (09:04)
[2017-03-03] MEDS ORDERED: diphenhydrAMINE CAP 25 MG CAPSULE PO ONE (09:04)
[2017-03-03] MEDS ORDERED: HEPARIN/NACL 0.9% 2 UNITS/ML 1,000 ML IV ONE (09:08)
[2017-03-03] MEDS ORDERED: LIDOCAINE 1% 20 ML VIAL ONE (09:08)
[2017-03-03] MEDS: TAMSULOSIN 0.4 MG CAPSULE PO SCH (09:18)
[2017-03-03] MEDS: ASPIRIN CHEW 81 MG TABLET PO SCH (09:18)
[2017-03-03] MEDS: ATORVASTATIN 40 MG TABLET PO SCH (09:19)
[2017-03-03] MEDS: SODIUM CHLORIDE 0.45% 1,000 ML IV SCH (09:19)
[2017-03-03] MEDS: PANTOPRAZOLE 40 MG TABLET PO SCH (09:19)
[2017-03-03] MEDS: CLOPIDOGREL 75 MG TABLET PO SCH (09:19)
[2017-03-03] MEDS ORDERED: MIDAZOLAM 2 MG/2 ML VIAL ONE (09:30)
[2017-03-03] MEDS ORDERED: fentaNYL 100 MCG/2 ML VIAL ONE (09:30)
[2017-03-03 09:44] LABS: Calcium 7.7 MG/DL (8.5-10.1); Magnesium 1.9 MG/DL (1.8-2.4); Osmolality,Calculated 285.4 MOS/KG (273-304); Potassium 3.9 MMOL/L (3.5-5.1)
[2017-03-03] MEDS ORDERED: CLOPIDOGREL 75 MG TABLET ONE (09:48)
[2017-03-03] MEDS: FUROSEMIDE 100 MG/10 ML VIAL IV SCH (16:48)
[2017-03-03] MEDS ORDERED: hydrALAZINE 10 MG TABLET ONE (21:35)
[2017-03-03] MEDS: ENOXAPARIN 40 MG/0.4 ML SYRINGE SUBCUT SCH (22:12)
[2017-03-04 07:00] LABS: Basophils % 0.2 % (0.0-0.8); Eosinophils % 0.5 % (0.00-10.9); Hematocrit 32.4 VOL% (42.0-52.0); Hemoglobin 10.5 GM/DL (14.0-18.0); Immature Granulocytes % 0.5 %; Immature Granulocytes Absolute 0.03 #; Lymphocytes % 16.9 % (21.2-54.2); Mean Corpuscular HGB Conc 32.4 GM/DL (32-36); Mean Corpuscular Hemoglobin 28 PG (27-34); Mean Platelet Volume 10.1 FL (9.6-12.0); Monocytes # 0.5 10*3/uL (0.11-0.8); Monocytes % 8.4 % (1.7-12.7); Neutrophils # 4.2 10*3/uL (1.4-7.4); Neutrophils % 73.5 % (38.7-73.9); Platelet Count 170 T/CUMM (130-400); Red Blood Count 3.81 MC/CUMM (3.8-5.5); Red Cell Distribution Width 15.2 % (9.3-17.3); White Blood Count 5.7 T/CUMM (4-12)
[2017-03-04 07:29] LABS: Calcium 7.6 MG/DL (8.5-10.1); Osmolality,Calculated 281.5 MOS/KG (273-304); Potassium 3.7 MMOL/L (3.5-5.1)
[2017-03-04] MEDS: INSULIN LISPRO 100 UNIT/ML SUBCUT SCH ×2 (08:08→13:01)
[2017-03-04] MEDS: CARVEDILOL 6.25 MG TABLET PO SCH (08:50)
[2017-03-04] MEDS: CLOPIDOGREL 75 MG TABLET PO SCH (08:50)
[2017-03-04] MEDS: TAMSULOSIN 0.4 MG CAPSULE PO SCH (08:50)
[2017-03-04] MEDS: ISOSORBIDE DINITRATE 20 MG TABLET PO SCH ×2 (08:50→16:19)
[2017-03-04] MEDS: PANTOPRAZOLE 40 MG TABLET PO SCH (08:50)
[2017-03-04] MEDS: FUROSEMIDE 100 MG/10 ML VIAL IV SCH ×2 (08:51→16:03)
[2017-03-04] MEDS: ASPIRIN CHEW 81 MG TABLET PO SCH (08:51)
[2017-03-04] MEDS: ATORVASTATIN 40 MG TABLET PO SCH (08:51)
[2017-03-04] MEDS: SODIUM CHLORIDE 0.45% 1,000 ML IV SCH (08:51)
[2017-03-04 12:44] VITALS: BP 114/65
[2017-03-04] MEDS ORDERED: hydrALAZINE 25 MG TABLET ONE (16:13)
== END 2017-03-04 16:21 | DRG 286 ==
LOC: N.ED 13:52 → N.EDINP 18:36 → N.2E 19:16
PROVIDERS: ADMIT Internal Medicine; ATTEND Internal Medicine
PROC: CLCCHCL (ICD-10-PCS; 2017-03-03 10:15)